=== PATIENT | male | born 1940 | race Caucasian/White ===

== ENCOUNTER → 2016-12-20 | Outpatient (CLI) | payer MEDICARE ==
--- NOTE | 2016-12-20 10:31 | US ---
EXAMINATION TYPE: US carotid duplex BILAT DATE OF EXAM: 12/20/2016 COMPARISON: NONE CLINICAL HISTORY: R42 dizziness. EXAM MEASUREMENTS: RIGHT: Peak Systolic Velocity (PSV) cm/sec ----- Right CCA: 68.2 ----- Right ICA: 71.0 ----- Right ECA: 80.6 ICA/CCA ratio: 1.0 RIGHT: End Diastole cm/sec ----- Right CCA: 28.9 ----- Right ICA: 25.6 ----- Right ECA: 14.2 LEFT: Peak Systolic Velocity (PSV) cm/sec ----- Left CCA: 77.3 ----- Left ICA: 79.3 ----- Left ECA: 91.8 ICA/CCA ratio: 1.0 LEFT: End Diastole cm/sec ----- Left CCA: 23.4 ----- Left ICA: 35.0 ----- Left ECA: 10.2 VERTEBRALS (direction of flow): Right Vertebral: Antegrade Left Vertebral: Antegrade Mild plaque, no significant velocity elevations. Grayscale, color Doppler, spectral Doppler imaging performed of the carotid arteries IMPRESSION: No hemodynamic significant stenosis of the proximal internal carotid arteries, and indir ect measurement of carotid stenosis
--- NOTE | 2016-12-20 12:04 | EST ---
DATE OF SERVICE: 12/20/2016 AGE: 76Y SEX: M HT: 67 WT: 190 lbs. Protocol Maxx: X Other: Stage: II Dur. of Exercise: 5 minutes *Heart Rate Blood Pressure *Rest: 78 Rest: 137/77 * *Max. Achieved: 131 Maximum BP: 208/97 85% PMHR: 123 100% PMHR: 145 *METS: 7.0 INDICATIONS: Dizziness. MEDICATIONS: Patient was exercised for a total period of 5 minutes. Peak heart rate of 131 was achieved. Maximum blood pressure of 208/97 mmHg was noted. Resting EKG shows normal sinus rhythm with normal OH interval and QRS duration and normal ST-T waves. The resting EKG shows normal sinus rhythm with a QRS morphology suggestive of right bundle branch block pattern was noted. No ST segment depression suggestive of ischemia was noted. The test was terminated because patient got short of breath. FINAL IMPRESSION: 1. This exercise test is not suggestive of ischemia. 2. Patient's exercise tolerance is below average. 3. The test was terminated because of the symptoms of shortness of breath.
== END | disposition home or self-care (01) ==
LOC: RADUSMAIN 09:01
PROVIDERS: ATTEND Family Medicine
DX: R42 Dizziness and giddiness (principal)
CPT/HCPCS: 93017; 93880

== ENCOUNTER → 2018-03-11 | Outpatient (CLI) | payer MEDICARE ==
--- NOTE | 2018-03-11 08:19 | CTL ---
EXAMINATION TYPE: CT Low Dose Lung DATE OF EXAM ORDERED: 03/11/2018 HISTORY: Tobacco use, cough. Lung cancer screening CT DLP: 79.[address] CTDI: 2.2 mGy Automated exposure control for dose reduction was used. SCREENING VISIT: 03/11/2018 COMPARISON: None TECHNIQUE: Low dose computed tomography scan was performed through the chest at 1 mm thick sections a nd reconstructed images in the coronal plane at [address] DIAGNOSTIC QUALITY: Satisfactory FINDINGS: LUNG NODULES: There is a large mass involving the left upper lobe with spiculated margins measuring a pproximately 4.8 x 3.4 x 3.2 cm highly suggestive of malignancy. There is adjacent subsegmental conso lidation. Single subpleural nodule anteriorly within the right upper lobe has measures 5 mm. Subsegmental consolidation is seen. No pleural calcification or thickening. No pneumothorax or pleural effusion. Assessment for adenopathy is limited by noncontrast technique. Shotty adenopathy in the mediastinum a nd hilum and axilla. There is coronary artery calcification and atherosclerotic change of the aorta. Heart size is mildly enlarged. Significant scoliotic curvature of the spine. There is a calcification within the left lobe of the li ayaan. There is a rib deformity on the left which appears related to remote trauma. No overtly destructive c hanges are seen. IMPRESSION: 1. Large left upper lobe mass measuring 4.8 cm highly suggestive of malignancy. FOLLOW UP CT CHEST RECOMMENDATION: Immediate CT scan with contrast recommended CT LUNG RAD: 4
== END | disposition home or self-care (01) ==
LOC: RADCTMAIN 07:00
PROVIDERS: ATTEND Family Medicine
DX: Z12.2 Encounter for screening for malignant neoplasm of respiratory organs (principal); R91.8 Other nonspecific abnormal finding of lung field; Z87.891 Personal history of nicotine dependence

== ENCOUNTER → 2018-03-12 | Outpatient (CLI) | payer MEDICARE ==
--- NOTE | 2018-03-12 13:03 | CT ---
"EXAMINATION TYPE: CT chest w con DATE OF EXAM: 03/12/2018 COMPARISON: CT low dose lung March 11, 2018 HISTORY: Abnormal CT results, lung mass CT DLP: 499 mGycm Automated exposure control for dose reduction was used. CONTRAST: CT scan of the chest is performed with IV Contrast, patient injected with 100 mL of Isovue 300. FINDINGS: LUNGS: The left upper lobe lung mass described on previous report is noted, it measures approximately 6.5 x 4.5 x 6 cm in size with pleural extension and local pleural thickening anteriorly, spiculated margins, extension towards the mediastinal fat anteriorly, and towards the left hilum. Emphysematous changes are present within the lungs. No pleural effusion. MEDIASTINUM: There are no greater than 1 cm hilar or mediastinal lymph nodes. Prevascular nodes are p resent. Left hilar adenopathy is present. No pericardial effusion is seen. There are coronary arter y calcifications present. Small hiatal hernia present. AORTA: Atheromatous changes are present. OTHER: Liver shows low attenuation possibly due to hepatic steatosis. There is a scoliosis present. Extensive diverticular changes associated with the colon. Gallbladder is contracted. IMPRESSION: Left upper lobe lung mass with hilar adenopathy as described consistent with bronchogeni c carcinoma. Coronary artery disease. Emphysema. Additional findings above. A Yellow level critical message alert has been initiated for Nataly You MD via the [employer] | Critical Results System on 03/12/2018 1:00 PM. This message alert has been sent to Nataly dhaliwal MD via the preferences provided by the clinician for the receipt of Radiology Critical Findings. Grant essage ID [id number]."
== END | disposition home or self-care (01) ==
LOC: RADCTMAIN 11:12
PROVIDERS: ATTEND Family Medicine
DX: R91.8 Other nonspecific abnormal finding of lung field (principal); I25.10 Atherosclerotic heart disease of native coronary artery without angina pectoris; J43.9 Emphysema, unspecified
CPT/HCPCS: 82565; 84520; 71260; 36415; Q9967

== ENCOUNTER → 2018-03-23 | Outpatient (CLI) | payer MEDICARE ==
--- NOTE | 2018-03-25 06:23 | PE ---
EXAMINATION TYPE: PET CT fusion skull to thigh DATE OF EXAM: 03/23/2018 COMPARISON: Chest CT March 12, 2018. Low-dose lung screening CT March 11, 2018. HISTORY: Solitary pulmonary nodule, abnormal CT. TECHNIQUE: Following the intravenous administration of 10.001 mCi of F-18 FDG, whole body images are performed from the skull base to the midthigh. Images are reviewed on the computer in the coronal, axial, and sagittal planes. Reconstructed rotating images are created on independent workstation and reviewed on the computer. A noncontrast CT is performed in conjunction with the PET scan. SCAN: Initial Scan FINDINGS: SKULL BASE AND NECK: No suspicious hypermetabolic uptake is present. CHEST, MEDIASTINUM, AND HILAR REGION: Mild underlying emphysematous change Is redemonstrated. Correla ting with recent CT there is spiculated mass in the anterior left upper to midlung measuring 4.9 x 3. 5 cm axial image 92 with abnormal hypermetabolic uptake, max SUV is 17.62. There is some ametabolic u ptake involving anterior and inferior portion of mass particularly component extending anteriorly to pleura is noted. Remainder of the thorax shows no suspicious hypermetabolic uptake. ABDOMEN AND PELVIS: No suspicious hypermetabolic uptake is present. OSSEOUS STRUCTURES: No suspicious hypermetabolic uptake is seen. OTHER CT: There is marked dextroconvex scoliosis centered in the lower thoracic spine. There is multi level facet arthropathy most prominent in the lower lumbar spine. There is mild to moderate mucosal thickening involving inferior aspect of right maxillary sinus. Nasa l septum is deviated to right of midline. There is mild to moderate calcified plaque at the carotid bulb level bilaterally. Small degree of bilateral gynecomastia is present. Main pulmonary artery measures 3.3 cm in diameter, CT finding consistent with underlying pulmonary ar pyaton hypertension. There is severe three-vessel coronary artery calcification which is noted marker for coronary artery disease. Dependent density in gallbladder is felt to reflect gallbladder sludge. Central 4 mm calcification left kidney axial image 158 could reflect vascular calcification versus no nobstructing calculus. There are diverticula throughout the colon most prominent in the sigmoid colon. Central zone calcifications are seen in slightly enlarged prostate gland which is for BPH. Correlate clinically. There is moderate calcified plaque of aorta extending into branch vessels. IMPRESSION: Suspicious hypermetabolic uptake in the left upper lobe mass. Imaging guided biopsy for t issue confirmation can be performed. TNM STAGING T2b,N0,M0 AJCC STAGING IIa
== END ==
LOC: RADPETMAIN 15:49
PROVIDERS: ATTEND Thoracic Surgery (Cardiothoracic Vascular Surgery)
DX: R91.1 Solitary pulmonary nodule (principal)
CPT/HCPCS: 78815; A9552

== ENCOUNTER → 2018-03-25 | Outpatient (CLI) | payer MEDICARE ==
[~2018-03-25] MED LIST: REGADENOSON 0.4 MG/5 ML SYRINGE IV ONE
--- NOTE | 2018-03-25 10:11 | P.STRESS ---
- Stress Test Note Stress Test Results/Findings: Exam Performed: NM stress lexiscan cardiolite Exam Date: 03/25/18 Reason for Exam: PRE-OP Height: 5 ft 6 in Weight: 81.647 kg Protocol: LEXISCAN CARDIOLITE Stage: NA Duration of Exercise: NA Resting Heart Rate: 66 Resting Blood Pressure: 103/71 Maximum Achieved Heart Rate: 94 Maximum Achieved Blood Pressure: 127/71 85% PMHR: 122 100% PMHR: 144 METS: NA Technologist Comment: Stress Test Results/Findings: This is a 77-year-old gentleman with history of hypertension and hypercholesterolemia and also smoking history, Being evaluated for cardiac status. Stress data: Baseline EKG showed sinus rhythm with evidence of a right bundle branch block. Blood pressure at rest is 103/71 with pulse rate of 66. A standard dose of Lexiscan was infused. EKGs taken during and after the infusion did not reveal any changes from the baseline. Final impression: #1. Negative Lexiscan stress test #2. Report on the nuclear images to be given by the radiologist.
--- NOTE | 2018-03-25 11:37 | NM ---
EXAMINATION TYPE: NM stress lexiscan cardiolite DATE OF EXAM: 03/25/2018 COMPARISON: Previous exam 05/19/2010 HISTORY: Solitary pulmonary nodule, lung mass, abnormal PET/CT TECHNIQUE: After the intravenous administration of 10.09 mCi Tc 99m Sestamibi - Cardiolite resting S PECT images acquired 45 minutes post injection. The patient received 0.4mg Lexiscan, 26.5 mCi Tc 99m Sestamibi - Stress images obtained [address] injection FINDINGS: Review of stress and rest SPECT images show some decreased radio pharmaceutical uptake along the infe rior wall left ventricle on stress as compared to rest images. Gated analysis shows some questionabl e paradoxical motion at the septum with an estimated left ventricular ejection fraction of 67 %. IMPRESSION: Findings suggest pharmacologically induced left ventricular myocardial ischemia along the inferior wa ll left ventricle, consider echocardiography for correlation of ejection fraction, wall motion. Resul elvia relayed to Robert Fuentes telephonically at the time of interpretation.
== END | disposition home or self-care (01) ==
LOC: RADNMMAIN 08:01
PROVIDERS: ATTEND Thoracic Surgery (Cardiothoracic Vascular Surgery)
DX: Z01.818 Encounter for other preprocedural examination (principal); R91.1 Solitary pulmonary nodule
CPT/HCPCS: 93017; 78452; A9500; J2785

== ENCOUNTER → 2018-04-01 | Outpatient (CLI) | payer MEDICARE ==
[2018-04-01 17:25] LABS: HCT 39.3 % (39.0-53.0); HGB 12.8 gm/dL (13.0-17.5); MCH 28.9 pg (25.0-35.0); MCHC 32.5 g/dL (31.0-37.0); Mean Platelet Volume 6.4; Platelet Count 518 k/uL (150-450); RBC 4.41 m/uL (4.30-5.90); RDW 12.6 % (11.5-15.5); WBC 12.7 k/uL (3.8-10.6)
[2018-04-01 17:32] LABS: Potassium 4.2 mmol/L (3.5-5.1)
== END | disposition home or self-care (01) ==
LOC: LABPAT 16:51
PROVIDERS: ATTEND Internal Medicine Interventional Cardiology
DX: Z01.812 Encounter for preprocedural laboratory examination (principal); I10 Essential (primary) hypertension; E78.2 Mixed hyperlipidemia; R94.39 Abnormal result of other cardiovascular function study
CPT/HCPCS: 80051; 82565; 84520; 85027

== ENCOUNTER → 2018-04-08 | Outpatient (CLI) | payer MEDICARE | END | disposition home or self-care (01) | LOC: LABPAT 16:00 | PROVIDERS: ATTEND Anesthesiology | DX: Z01.812 Encounter for preprocedural laboratory examination (principal) | CPT/HCPCS: 86850; 86900; 86901 ==

== ENCOUNTER 2018-04-11 05:39 | Inpatient (IN) | payer MEDICARE ==
[2018-04-02 09:27] VITALS: BMI 29.8
[~2018-04-11 05:39] MED LIST changes: -REGADENOSON 0.4 MG/5 ML SYRINGE IV ONE; +ceFAZolin IN SWFI 2 GM/20 ML SYRINGE IVP ONE
[2018-04-11] MEDS ORDERED: DEXAMETHASONE SOD PHOSPHATE 10 MG/ML 1 ML VIAL IV ONE (06:14)
[2018-04-11] MEDS ORDERED: MIDAZOLAM 2 MG/2 ML VIAL IV PRN (06:14)
[2018-04-11] MEDS ORDERED: ONDANSETRON 4 MG/2 ML VIAL IVP ONE (06:14)
[2018-04-11] MEDS ORDERED: LIDOCAINE 1% 20 ML VIAL (10MG/ML) FOR IV START INTRADERMA ONE (06:54)
[2018-04-11] MEDS: LACTATED RINGERS 1,000 ML IV SCH ×2 (06:55→07:20)
[2018-04-11] MEDS ORDERED: MIDAZOLAM 2 MG/2 ML VIAL ONE (07:30)
[2018-04-11] MEDS ORDERED: PROPOFOL 10 MG/ML 20 ML VIAL IV ONE (07:30)
[2018-04-11] MEDS ORDERED: NEOSTIGMINE 1 MG/ML 10 ML VIAL ONE (07:30)
[2018-04-11] MEDS ORDERED: LIDOCAINE 1% INJ 10MG/ML (20 ML MDV) ONE (07:30)
[2018-04-11] MEDS ORDERED: LABETALOL 5 MG/ML VIAL MDV ONE (07:30)
[2018-04-11] MEDS ORDERED: GLYCOPYRROLATE 0.2 MG/ML 2 ML VIAL ONE (07:30)
[2018-04-11] MEDS ORDERED: PHENYLEPHRINE-0.9% NACL SYG 1 MG/10 ML SYRINGE ONE (07:30)
[2018-04-11] MEDS ORDERED: fentaNYL (PF) 50 MCG/ML 2 ML AMP ONE (07:30)
[2018-04-11] MEDS ORDERED: ROCURONIUM BROMIDE 10 MG/ML 10 ML VIAL IV ONE (07:30)
[2018-04-11] MEDS ORDERED: SUCCINYLCHOLINE CHLORIDE 100 MG/5 ML SYR IV ONE (07:30)
[2018-04-11] MEDS ORDERED: HYDROmorphone (PF) 1 MG/ML ONE (07:30)
[2018-04-11] MEDS ORDERED: ROPIVACAINE 5 MG/ML 30 ML VIAL MISCELLANE ONE (08:17)
[2018-04-11] MEDS ORDERED: ONDANSETRON 4 MG/2 ML VIAL IVP PRN (10:57)
[2018-04-11] MEDS ORDERED: DEXTROSE 5%-0.45% NACL 1,000 ML IV SCH (11:00)
--- NOTE | 2018-04-11 11:07 | P.OP ---
Date of Procedure: 04/11/18 Preoperative Diagnosis: Left upper lobe mass consistent with carcinoma Postoperative Diagnosis: Same Procedure(s) Performed: Robotic-assisted thoracoscopic right upper lobectomy with mediastinal lymph node dissection Anesthesia: DAVIDA Surgeon: Inocencio Handy Testing Manager #1: Ash Gomez Estimated Blood Loss (ml): 20 IV fluids (ml): 1,500 Urine output (ml): 250 Pathology: other (Left upper lobe for frozen section of bronchial margin and permanent section, lymph nodes from stations L5, L6, level VII, L 10 and L 11.) Condition: stable Disposition: PACU Indications for Procedure: 77-year-old male presents with a 6 cm mass in the left upper lobe of the lung. He has a distant smoking history. He had mild mediastinal adenopathy on computed tomography scan. PET scan showed marketed uptake in the tumor and no evidence of metastatic disease. Patient was boarded for elective lobectomy. 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 Operative Findings: Fissures were partially complete. There were mild adhesions of the lung to the pleura. These were taken down without difficulty. There was extensive anthracotic lymphadenopathy both in the hilum and the mediastinum. None of this appeared malignant. There was a large tumor in the left upper lobe with overlying visceral pleural puckering but no attachment to the parietal pleura or chest wall. Frozen section of the bronchial margin was benign. Description of Procedure: The patient was brought to the operating room, placed supine on the operating table, anesthetized and intubated with a double-lumen endotracheal tube. Tube was positioned with fiberoptic bronchoscopy. No endobronchial lesions were noted. Tube was secured and the patient turned in the right lateral decubitus position and appropriately positioned for robotic lobectomy. The left chest was marked and then sterilely prepped and draped. Initial incision was made in the anterior axillary line in the seventh interspace and an 8 mm robotic port was placed here. Single lung ventilation had been initiated prior to placing the port. With the port in place the video thoracoscope was introduced and placement in the pleural space was confirmed. CO2 insufflation was begun and 212 mm ports were placed 10 cm anterior 10 cm posterior to this initial port. A second 8 mm port was placed posteriorly just anterior to the spine in the fourth interspace. A 15 mm working port was placed between the 2 most anterior ports at the level of the diaphragm. The robot was docked. Camera was placed in the initial port and the dissection was begun. Chest exploration was performed as noted above. Adhesions were taken down. We began the dissection in the fissure identifying the pulmonary artery at the base of the fissure and completing the fissure posteriorly with a single firing of the robotic 45 mm medium stapler. Some lymph nodes in the hilum at the base of the fissure were sent as L 11 lymph nodes. Dissection was carried along the pulmonary artery and the lingular branch and one other branch of the pulmonary artery leading to the left upper lobe were encircled ligated and individually divided with the robotic vascular stapler. We then redirected our attention inferiorly and took down the inferior pulmonary ligament continuing the dissection posteriorly behind the inferior pulmonary vein. A lymph node at the base of the inferior pulmonary vein was resected and sent as an L 10 lymph node. Dissection was carried out inferior to the trachea and superior to the inferior pulmonary vein and the level VII lymph nodes were resected from this region. Dissection was carried more superiorly and level lymph nodes were resected. The plane between the pulmonary artery and the left mainstem bronchus was partially dissected and lymph nodes in this region were resected and sent as L 10 lymph nodes. Good hemostasis was maintained throughout attention was now directed anteriorly. The superior pulmonary vein was identified and dissected out anteriorly. Between the 2 pulmonary veins was explored and some L 11 lymph nodes were resected from this region. This brought us back onto the bronchus. We were now able to encircle the superior pulmonary vein with careful blunt dissection and then ligate and divide the superior pulmonary vein with a single firing of a robotic vascular stapler. We were now able to further dissected the L 11 lymph nodes off the left upper lobe bronchus and encircle it. Adhesions between the bronchus and the pulmonary artery were carefully freed. Bronchus was then ligated and divided with a single firing of a robotic thick stapler. 2 proximal branches of the pulmonary artery maintained to the upper lobe and these were encircled and taken with a single firing of a robotic vascular stapler. There were large number of lymph nodes which were resected en bloc with the specimen. We completed freeing the specimen by completing the fissure between the lingula and the lower lobe with 2 firings of a robotic 45 mm medium stapler. We now completed the lymph node dissection by resecting the L5 lymph nodes. The lobectomy specimen was placed in a large Endo Catch bag and brought in through the working port. Robotic ports were now removed. The working port incision was enlarged and the specimen brought through the resulting enlarged incision in the Endo Catch bag. Was examined on the back table with the findings as noted above. Was sent for frozen section of the bronchial margin which returned negative. Good hemostasis was noted throughout. Pleural space was filled with some warm water and irrigated out. The lobectomy specimen was inflated under thoracoscopic visualization. There was no air leak from the bronchial stump and minimal air leak from the staple lines. Water was suctioned free and a 28-Mongolian chest tube was placed through the anteriormost incision and brought posterior apically. It was secured with an 0 Ethibond suture. The lung remained inflated and 2 lung ventilation continued. Rib blocks were performed from level IV to level X with bupivacaine. Incisions were closed with layers of Vicryl suture. Band-Aid dressings were applied, the chest tube was connected to a Pleur-evac and the patient was transported to recovery room following extubation.
[2018-04-11] MEDS: HYDROmorphone 0.5 MG/0.5 ML SYRINGE IVP PRN ×4 (11:15→12:00)
[2018-04-11] MEDS: KETOROLAC 30 MG/ML 1 ML VIAL IVP SCH ×4 (11:34→22:57)
[2018-04-11] MEDS ORDERED: diphenhydrAMINE 50 MG/ML 1 ML VIAL IVP ONE (11:35)
--- NOTE | 2018-04-11 11:41 | XR ---
EXAMINATION TYPE: XR chest 1V portable DATE OF EXAM: 04/11/2018 COMPARISON: Nuclear medicine PET/CT 03/23/2018 HISTORY: Status post left upper lobectomy TECHNIQUE: Single frontal view of the chest is obtained. FINDINGS: There is a left-sided chest tube in place, volume loss present in left hemithorax. Marked scoliosis is noted. No evident pneumothorax or sizable effusion. Patient is rotated. Strand-like dens ities in the right lung likely reflects scarring. IMPRESSION: Post lobectomy change.
[2018-04-11] MEDS: IPRATROPIUM-ALBUTEROL 3 ML NEB IH SCH ×3 (13:03→19:37)
[2018-04-11] MEDS: traMADol 50 MG TAB PO SCH ×3 (13:26→20:38)
[2018-04-11] MEDS: ceFAZolin IN SWFI 2 GM/20 ML SYRINGE IVP SCH ×2 (15:25→22:56)
[2018-04-11] MEDS: HEPARIN SODIUM,PORCINE 5,000 UNIT/ML 1 ML VIAL SQ SCH ×2 (15:25→22:56)
--- NOTE | 2018-04-11 17:46 | P.CNPUL ---
History of Present Illness Consult date: 04/11/18 Reason for consult: other (Status post left upper lobectomy, underlying COPD) Chief complaint: Status post left upper lobectomy was operative day #1 History of present illness: This is a 77-year-old white male presented recently to his primary care physician, he requested a routine chest x-ray mostly because he has known history of COPD, and has not had a chest x-ray and a long time. His chest x- ray in the office was abnormal, patient had a CT of the chest which confirmed left upper lobe mass consistent with carcinoma, PET scan was done, and it showed only one hypermetabolic focus correlating to the left upper lobe mass. Patient was referred to Dr. Handy, his preoperative PFT was adequate, and he underwent robotic-assisted thoracoscopic left upper lobectomy and mediastinal lymph node dissection. Postoperatively patient was sent to a monitor bed on selective, and I was asked to see him on consultation. Patient is doing well during my evaluation, denies any cough no wheezing no shortness of breath, and his pain seems to be fairly well controlled. Patient has strong family history of lung cancer, and strong family history of colon cancer. 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 Remote history of smoking, quit many years ago. Known history of scoliosis. Review of Systems 14 point review of systems were obtained, please refer to pertinent positives in HPI, otherwise remaining systems are negative Past Medical History Past Medical History: COPD, GERD/Reflux, Hyperlipidemia, Hypertension Additional Past Medical History / Comment(s): seasaonal allergies History of Any Multi-Drug Resistant Organisms: None Reported Past Surgical History: Back Surgery Past Anesthesia/Blood Transfusion Reactions: No Reported Reaction Past Psychological History: Depression Smoking Status: Former smoker Past Alcohol Use History: None Reported Additional Past Alcohol Use History / Comment(s): smoked 30 years off and on 1ppd quit 2009 Past Drug Use History: None Reported - Past Family History Sister(s) Family Medical History: Cancer Additional Family Medical History / Comment(s): lung and colon cancer Medications and Allergies Home Medications Medication Instructions Recorded Confirmed Type Aclidinium Orgas [Tudorza 400 mcg PO BID 04/02/18 04/11/18 History Pressair] Aspirin 325 mg PO DAILY 04/02/18 04/11/18 History Atorvastatin [Lipitor] 40 mg PO DAILY 04/02/18 04/11/18 History Famotidine [Pepcid] 40 mg PO DAILY 04/02/18 04/11/18 History Glucosamine Sulfate 500 mg PO DAILY 04/02/18 04/11/18 History L.acidoph,Paracasei, B.lactis 1 cap PO DAILY 04/02/18 04/11/18 History [Probiotic] Losartan/Hydrochlorothiazide 1 tab PO DAILY 04/02/18 04/11/18 History [Losartan-Hctz 100-12.5 mg Tab] Montelukast Sodium [Singulair] 10 mg PO DAILY 04/02/18 04/11/18 History Allergies Allergy/AdvReac Type Severity Reaction Status Date / Time No Known Allergies Allergy Verified 04/11/18 11:29 Physical Exam Vitals: Vital Signs Temp Pulse Pulse Resp BP BP Pulse Ox 04/11/18 16:00 97.8 F 91 16 114/74 95 04/11/18 15:43 93 04/11/18 15:31 91 04/11/18 13:07 80 04/11/18 12:15 79 16 112/55 94 L 04/11/18 12:00 70 16 128/62 121/59 94 L 04/11/18 11:35 73 16 132/77 128/65 95 04/11/18 11:20 72 16 138/77 132/83 98 04/11/18 11:04 96.8 F L 84 18 148/82 144/76 99 04/11/18 06:33 98.0 F 72 18 120/65 96 Intake and Output 04/11/18 04/11/18 04/11/18 06:59 14:59 22:59 Intake Total 100 1095 Output Total 335 Balance 100 760 Intake: IV 100 1075 Intake, IV Titration 20 Amount Lactated Ringers 1,000 ml 20 @ 20 mls/hr IV .Q24H [facility] Rx#:[id number] Output: Urine 325 Estimated Blood Loss 10 Other: Voiding Method Indwelling Catheter Weight 83.9 kg Physical Exam: Revealed a 77-year-old white male, pleasant, in no distress. Head: Atraumatic, normocephalic. HEENT:[Neck is supple.] [No neck masses.] [No thyromegaly.] [No JVD.] PERRLA, EOMI, no icterus, no cervical adenopathy. Chest: [Diminished breath sound bilaterally, left sided chest tube is noted. No crackles, no rhonchi, no wheezes.] Cardiac Exam: [Normal S1 and S2, no S3 gallop, no murmur.] Abdomen: [Soft, nontender, no megaly, no rebound, no guarding, normal bowel sounds.] Extremities: [No clubbing, no edema, no cyanosis.] Neurological Exam: [No focal neurologic deficit.] Psychiatric: Normal mood, affect, and mental status examination. Lymphatics: No lymphadenopathy. Results - Diagnostic Findings Chest x-ray: image reviewed (Chest x-ray showed mostly postoperative changes involving the left lung, no significant abnormalities noted.) Assessment and Plan Assessment: Impression: 1 status post left upper lobectomy for left upper lobe mass highly suspicious for bronchogenic carcinoma, with positive PET scan. 2 mild COPD/asthmatic bronchitis as noted on his PFT from our office, patient will benefit from DuoNeb updrafts 4 times a day and when necessary. 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 And family history of colon cancer. Recommendation: Agree with present treatment plan, continue bronchodilators in the form of DuoNeb updrafts 4 times a day and when necessary, incentive spirometry, resume his home meds, await the final pathology report from his lobectomy and mediastinal node dissection. We'll continue to follow. Time with Patient: Greater than 30
[2018-04-11] MEDS: MORPHINE SULFATE 2 MG/ML SYRINGE IVP PRN (20:57)
[2018-04-11] MEDS ORDERED: ACLIDINIUM BROMIDE 400 MCG PO SCH (21:00)
[2018-04-12] MEDS: MORPHINE SULFATE 2 MG/ML SYRINGE IVP PRN (04:33)
[2018-04-12] MEDS: KETOROLAC 30 MG/ML 1 ML VIAL IVP SCH ×3 (06:43→20:37)
[2018-04-12 06:54] LABS: Basophils % (A) 0 %; Eosinophils # (A) 0.2 k/uL (0-0.7); Eosinophils % (A) 2 %; HCT 38.4 % (39.0-53.0); HGB 12.7 gm/dL (13.0-17.5); Lymphocytes # (A) 1.1 k/uL (1.0-4.8); Lymphocytes % (A) 8 %; MCH 28.9 pg (25.0-35.0); MCV 87.8 fL (80.0-100.0); Mean Platelet Volume 6.7; Monocytes # (A) 0.7 k/uL (0-1.0); Monocytes % (A) 5 %; Neutrophils # (A) 11.8 k/uL (1.3-7.7); Neutrophils % (A) 85 %; Platelet Count 406 k/uL (150-450); RBC 4.38 m/uL (4.30-5.90); RDW 12.5 % (11.5-15.5); WBC 13.9 k/uL (3.8-10.6)
[2018-04-12 07:07] LABS: Calcium 8.7 mg/dL (8.4-10.2); Potassium 4.2 mmol/L (3.5-5.1)
--- NOTE | 2018-04-12 08:52 | XR ---
EXAMINATION TYPE: XR chest 1V DATE OF EXAM: 04/12/2018 COMPARISON: 04/11/2018 HISTORY: Postsurgical TECHNIQUE: Single frontal view of the chest is obtained. FINDINGS: Findings suggest a 5% to 10% left-sided pneumothorax. Chest tube seen in position. Bilater al consolidation and small effusion. Heart size stable. Marked scoliotic curvature noted. Reduced ins piration limits exam. IMPRESSION: 1. There appears to be a left-sided pneumothorax measuring approximately 5-10% 2. Bilateral consolidation and small effusion stable.
[2018-04-12] MEDS ORDERED: NON-FORMULARY DRUG (Glucosamine Sulfate 500 MG) PO SCH (09:00)
[2018-04-12] MEDS: IPRATROPIUM-ALBUTEROL 3 ML NEB IH SCH ×4 (09:20→20:46)
[2018-04-12] MEDS: FAMOTIDINE 20 MG TAB PO SCH (10:35)
[2018-04-12] MEDS: ASPIRIN 325 MG TAB PO SCH (10:35)
[2018-04-12] MEDS: HEPARIN SODIUM,PORCINE 5,000 UNIT/ML 1 ML VIAL SQ SCH ×3 (10:35→23:21)
[2018-04-12] MEDS: ATORVASTATIN 40 MG TAB PO SCH (10:35)
[2018-04-12] MEDS: HYDROCHLOROTHIAZIDE 12.5 MG CAP PO SCH (10:36)
[2018-04-12] MEDS: LACTOBACILLUS ACIDOPH & BULGAR 1 EACH PACKET PO SCH (10:36)
[2018-04-12] MEDS: LOSARTAN 50 MG TAB PO SCH (10:36)
[2018-04-12] MEDS: MONTELUKAST 10 MG TAB PO SCH (10:37)
[2018-04-12] MEDS: ACETAMINOPHEN IV (For NPO) 1,000 MG in EMPTY BAG 1 BAG IVPB SCH ×3 (10:40→21:58)
[2018-04-12] MEDS: traMADol 50 MG TAB PO SCH ×4 (10:41→23:21)
[2018-04-12] MEDS: METOCLOPRAMIDE 5 MG/ML 2 ML VIAL IVP SCH ×3 (12:06→23:21)
--- NOTE | 2018-04-12 13:44 | P.PN ---
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 POD #1 robotic-assisted thoracoscopic left upper lobectomy with mediastinal lymph node dissection. The patient is currently sitting up to his bedside edge. He is in no acute distress. He is currently complaining of pain to his left chest tube insertion site 5 out of 10 on the pain scale. He denies any complaints of shortness of breath. Oxygen saturations are 93% on 3 L nasal cannula. He is achieving 500 mL on his incentive spirometry. He is anxious to be discharged home. Objective - Vital Signs Vital signs: Vital Signs Temp 97.0 F L 04/12/18 04:00 Pulse 90 04/12/18 04:00 Resp 18 04/12/18 04:00 BP 142/77 04/12/18 04:00 Pulse Ox 90 L 04/12/18 04:00 Intake & Output 04/11/18 04/12/18 04/12/18 18:59 06:59 18:59 Intake Total 1335 240 Output Total 335 530 Balance 1000 -290 Weight 83.9 kg 88.5 kg Intake: IV 1075 240 0.9 240 Intake, IV Titration 20 Amount Lactated Ringers 1,000 ml 20 @ 20 mls/hr IV .Q24H [facility] Rx#:[id number] Oral 240 Output: Drainage 230 Left Chest 230 Urine 325 300 Estimated Blood Loss 10 Other: Voiding Method Indwelling Catheter Indwelling Catheter - Constitutional General appearance: Present: cooperative, no acute distress, obese - Respiratory Details: Lungs sounds essentially diminished throughout, left greater than right. Respirations are symmetrical and nonlabored. Oxygen saturation are 93% on 3 L nasal cannula. He is achieving 500 mL on his incentive spirometry with encouragement. Left pleural chest tube in place to low continuous wall suction. Draining thin serosanguineous drainage, 120 mL output in the last 8 hours, 270 mL output since surgery. No air leak is present. - Cardiovascular Details: Regular rhythm and rate. S1 and S2 present, negative for S3, gallop or murmur. No edema present. Remote telemetry showing normal sinus rhythm heart rate 90. Knee-high OTTO hose and sequential compression devices in place to his bilateral lower extremities. - Gastrointestinal Gastrointestinal Comment(s): Abdomen is soft, distended and nontender. Active bowel sounds all 4 abdominal quadrants. Tolerating oral intake. - Genitourinary Genitourinary Comment(s): Rai catheter for accurate I&O. Draining clear yellow urine. 500 mL output in the last 8 hours. - Integumentary Integumentary Comment(s): Skin is warm and dry. No clubbing and cyanosis present. Left chest incisions clean dry and intact. Dressings clean dry and intact. - Neurologic Neurologic: Present: CNII-XII intact - Musculoskeletal Musculoskeletal: Present: gait normal, generalized weakness, strength equal bilaterally - Psychiatric Psychiatric: Present: A&O x's 3, appropriate affect, intact judgment & insight - Allied health notes Allied health notes reviewed: nursing - Labs CBC & Chem 7: 04/12/18 06:25 04/12/18 06:25 Labs: Abnormal Lab Results - Last 24 Hours (Table) 04/12/18 04/12/18 Range/Units 06:25 06:25 WBC 13.9 H (3.8-10.6) k/uL Hgb 12.7 L (13.0-17.5) gm/dL Hct 38.4 L (39.0-53.0) % Neutrophils # 11.8 H (1.3-7.7) k/uL Sodium 130 L (137-145) mmol/L Chloride 97 L (98-107) mmol/L BUN 21 H (9-20) mg/dL Glucose 127 H (74-99) mg/dL - Imaging and Cardiology Chest x-ray: report reviewed, image reviewed Assessment and Plan (1) Mass of upper lobe of left lung Current Visit: Yes Status: Acute Code(s): R91.8 - OTHER NONSPECIFIC ABNORMAL FINDING OF LUNG FIELD SNOMED Code(s): 296046354 (2) COPD (chronic obstructive pulmonary disease) Current Visit: Yes Status: Acute Code(s): J44.9 - CHRONIC OBSTRUCTIVE PULMONARY DISEASE, UNSPECIFIED SNOMED Code(s): 96994223 (3) GERD (gastroesophageal reflux disease) Current Visit: Yes Status: Acute Code(s): K21.9 - GASTRO-ESOPHAGEAL REFLUX DISEASE WITHOUT ESOPHAGITIS SNOMED Code(s): 338441461 (4) Hypertension Current Visit: Yes Status: Acute Code(s): I10 - ESSENTIAL (PRIMARY) HYPERTENSION SNOMED Code(s): 96953987 (5) Hyperlipidemia Current Visit: Yes Status: Acute Code(s): E78.5 - HYPERLIPIDEMIA, UNSPECIFIED SNOMED Code(s): 08147372 (6) History of depression Current Visit: Yes Status: Acute Code(s): Z86.59 - PERSONAL HISTORY OF OTHER MENTAL AND BEHAVIORAL DISORDERS SNOMED Code(s): 408237606 (7) Tobacco dependence in remission Current Visit: Yes Status: Acute Code(s): F17.201 - NICOTINE DEPENDENCE, UNSPECIFIED, IN REMISSION SNOMED Code(s): 411413203 (8) Scoliosis Current Visit: Yes Status: Acute Code(s): M41.9 - SCOLIOSIS, UNSPECIFIED SNOMED Code(s): 794349508 Plan: 1. Continue aspirin, statin, Cozaar and subcu heparin. 2. Encourage use of his incentive spirometry every hour while awake. Wean oxygen as tolerated to keep oxygen saturations greater than 92%. 3. Place left pleural chest tube to waterseal. 4. Monitor daily labs and chest x-rays. 5. Discontinue Rai catheter. 6. Increase activity as tolerated, out of bed for all meals. Physical therapy following. 7. Pain control per current regimen. We will add IV acetaminophen. 8. Saline lock IV fluids. 9. Continue GI prophylaxis, Pepcid and DVT prophylaxis subcu heparin and SCDs. 10. Bronchodilators and pulmonary management per pulmonology recommendations. 11. Pathology results pending. 12. Discontinue Rai catheter. 13. More recommendations to follow based on patient's clinical course. Time with Patient: Greater than 30
--- NOTE | 2018-04-12 14:25 | P.PN ---
Subjective Progress Note Date: 04/12/18 Principal diagnosis: Status post left upper lobectomy, postoperative day #1. This is a 77-year-old white male presented recently to his primary care physician, he requested a routine chest x-ray mostly because he has known history of COPD, and has not had a chest x-ray and a long time. His chest x- ray in the office was abnormal, patient had a CT of the chest which confirmed left upper lobe mass consistent with carcinoma, PET scan was done, and it showed only one hypermetabolic focus correlating to the left upper lobe mass. Patient was referred to Dr. Handy, his preoperative PFT was adequate, and he underwent robotic-assisted thoracoscopic left upper lobectomy and mediastinal lymph node dissection. Postoperatively patient was sent to a monitor bed on selective, and I was asked to see him on consultation. Patient is doing well during my evaluation, denies any cough no wheezing no shortness of breath, and his pain seems to be fairly well controlled. Patient has strong family history of lung cancer, and strong family history of colon cancer. 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 Remote history of smoking, quit many years ago. Known history of scoliosis. The patient is seen again today 04/12/2018 in follow-up. Postoperative day #1. He remains awake and alert in no acute distress. Maintaining good O2 sat to saturations in the 90s on 3 L/m per nasal cannula. Asked x-ray reveals a left- sided pneumothorax measuring 5-10%. There is bilateral consolidation and small effusion which are stable. Chest tube remains in place. Placed to waterseal this morning. Working well with the incentive spirometer. Remains on DuoNeb inhalations. Heparin for DVT prophylaxis. Objective - Vital Signs Vital signs: Vital Signs Temp 97.0 F L 04/12/18 04:00 Pulse 92 04/12/18 13:30 Resp 18 04/12/18 04:00 BP 142/77 04/12/18 04:00 Pulse Ox 90 L 04/12/18 04:00 Intake & Output 04/11/18 04/12/18 04/12/18 18:59 06:59 18:59 Intake Total 1335 240 Output Total 335 530 Balance 1000 -290 Weight 83.9 kg 88.5 kg Intake: IV 1075 240 0.9 240 Intake, IV Titration 20 Amount Lactated Ringers 1,000 ml 20 @ 20 mls/hr IV .Q24H [facility] Rx#:[id number] Oral 240 Output: Drainage 230 Left Chest 230 Urine 325 300 Estimated Blood Loss 10 Other: Voiding Method Indwelling Catheter Indwelling Catheter - Exam Physical Exam: Revealed a 77-year-old white male, pleasant, in no distress. Head: Atraumatic, normocephalic. HEENT:[Neck is supple.] [No neck masses.] [No thyromegaly.] [No JVD.] PERRLA, EOMI, no icterus, no cervical adenopathy. Chest: [Diminished breath sound bilaterally, left sided chest tube is noted. No crackles, no rhonchi, no wheezes.] Cardiac Exam: [Normal S1 and S2, no S3 gallop, no murmur.] Abdomen: [Soft, nontender, no megaly, no rebound, no guarding, normal bowel sounds.] Extremities: [No clubbing, no edema, no cyanosis.] Neurological Exam: [No focal neurologic deficit.] Psychiatric: Normal mood, affect, and mental status examination. Lymphatics: No lymphadenopathy. - Labs CBC & Chem 7: 04/12/18 06:25 04/12/18 06:25 Labs: Abnormal Lab Results - Last 24 Hours (Table) 04/12/18 04/12/18 Range/Units 06:25 06:25 WBC 13.9 H (3.8-10.6) k/uL Hgb 12.7 L (13.0-17.5) gm/dL Hct 38.4 L (39.0-53.0) % Neutrophils # 11.8 H (1.3-7.7) k/uL Sodium 130 L (137-145) mmol/L Chloride 97 L (98-107) mmol/L BUN 21 H (9-20) mg/dL Glucose 127 H (74-99) mg/dL Assessment and Plan Assessment: Impression: 1 status post left upper lobectomy for left upper lobe mass highly suspicious for bronchogenic carcinoma, with positive PET scan. 2 mild COPD/asthmatic bronchitis as noted on his PFT from our office, patient will benefit from DuoNeb updrafts 4 times a day and when necessary. 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 And family history of colon cancer. Plan: The patient was seen and evaluated by Dr. Schwartz. Chest x-ray was reviewed. Chest tube to waterseal per CT services. We will increase his activity as tolerated. Encourage the increased use of the incentive spirometer and cough and deep breathing exercises. Continue bronchodilators. Pathology is pending. We will continue to follow. I, the cosigning physician, performed a history & physical examination of the patient. Lungs sounds with crackles in posterior bases. Maintaining good O2 saturations in the 90s on 3 L/m per nasal cannula. I discussed the assessment and plan of care with my nurse practitioner, Dasia Moya. I attest to the above note as dictated by her.
[2018-04-13] MEDS: KETOROLAC 30 MG/ML 1 ML VIAL IVP SCH ×5 (01:02→23:20)
[2018-04-13] MEDS: ACETAMINOPHEN IV (For NPO) 1,000 MG in EMPTY BAG 1 BAG IVPB SCH (03:51)
[2018-04-13] MEDS: METOCLOPRAMIDE 5 MG/ML 2 ML VIAL IVP SCH ×3 (06:11→23:20)
--- NOTE | 2018-04-13 06:35 | XR ---
EXAMINATION TYPE: XR chest 2V DATE OF EXAM: 04/13/2018 HISTORY: Postoperative left upper lobectomy. REFERENCE: Previous study dated 04/12/2018. FINDINGS: The left pleural drain has been inserted. No residual pneumothorax is seen at this time. The heart is enlarged. There is some left basilar atelectasis. I suspect a tiny left effusion. IMPRESSION: 1. RESOLUTION OF THE PATIENT'S LEFT-SIDED PNEUMOTHORAX. 2. CARDIOMEGALY. 3. LEFT BASILAR ATELECTASIS. 4. I COULD NOT EXCLUDE A SMALL, LEFT EFFUSION.
[2018-04-13 06:38] LABS: Basophils % (A) 0 %; Eosinophils # (A) 0.5 k/uL (0-0.7); Eosinophils % (A) 3 %; HCT 35.5 % (39.0-53.0); HGB 12.2 gm/dL (13.0-17.5); Lymphocytes # (A) 0.8 k/uL (1.0-4.8); Lymphocytes % (A) 6 %; MCH 28.9 pg (25.0-35.0); MCHC 34.3 g/dL (31.0-37.0); MCV 84.3 fL (80.0-100.0); Mean Platelet Volume 7.8; Monocytes # (A) 0.8 k/uL (0-1.0); Monocytes % (A) 5 %; Neutrophils # (A) 12.7 k/uL (1.3-7.7); Neutrophils % (A) 85 %; Platelet Count 416 k/uL (150-450); RBC 4.21 m/uL (4.30-5.90); RDW 12.2 % (11.5-15.5); WBC 14.8 k/uL (3.8-10.6)
[2018-04-13 06:46] LABS: Calcium 8.7 mg/dL (8.4-10.2); Potassium 3.9 mmol/L (3.5-5.1)
[2018-04-13] MEDS: IPRATROPIUM-ALBUTEROL 3 ML NEB IH SCH ×4 (07:50→19:23)
[2018-04-13] MEDS ORDERED: BISACODYL 10 MG SUPP RECTAL STA (08:31)
[2018-04-13] MEDS: HYDROCHLOROTHIAZIDE 12.5 MG CAP PO SCH (08:37)
[2018-04-13] MEDS: MONTELUKAST 10 MG TAB PO SCH (08:38)
[2018-04-13] MEDS: LACTOBACILLUS ACIDOPH & BULGAR 1 EACH PACKET PO SCH (08:38)
[2018-04-13] MEDS: ATORVASTATIN 40 MG TAB PO SCH (08:38)
[2018-04-13] MEDS: HEPARIN SODIUM,PORCINE 5,000 UNIT/ML 1 ML VIAL SQ SCH ×3 (08:38→23:20)
[2018-04-13] MEDS: ASPIRIN 325 MG TAB PO SCH (08:38)
[2018-04-13] MEDS: LOSARTAN 50 MG TAB PO SCH (08:38)
[2018-04-13] MEDS: FAMOTIDINE 20 MG TAB PO SCH (08:38)
[2018-04-13] MEDS: traMADol 50 MG TAB PO SCH ×4 (08:43→21:27)
--- NOTE | 2018-04-13 09:37 | P.PN ---
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 POD #2 robotic-assisted thoracoscopic left upper lobectomy with mediastinal lymph node dissection. The patient is currently sitting up to his bedside edge. He is in no acute distress. He is currently complaining of pain to his left chest tube insertion site 3 out of 10 on the pain scale. He denies any complaints of shortness of breath. Oxygen saturations are 94% on 3 L nasal cannula. He is achieving 500 mL on his incentive spirometry. He is anxious to be discharged home. Left pleural chest tube remains in place to waterseal, no air leak is present. He reports that he ambulated in the [address] [place], [place] [address]way yesterday with minimal assist. Complaining of urine frequency throughout the night. Objective - Vital Signs Vital signs: Vital Signs Temp 98.0 F 04/13/18 07:50 Pulse 82 04/13/18 08:00 Resp 18 04/13/18 07:50 BP 142/98 04/13/18 07:50 Pulse Ox 93 L 04/13/18 07:50 Intake & Output 04/12/18 04/13/18 04/13/18 18:59 06:59 18:59 Intake Total 240 20 240 Output Total 2175 Balance 240 -2155 240 Weight 87.3 kg Intake: IV 20 0.9 20 Oral 240 240 Output: Chest Tube Drainage 150 Left Upper Lateral Chest 150 Drainage 100 Left Chest 100 Urine 1925 Other: Voiding Method Urinal Urinal # Voids 1 - Constitutional General appearance: Present: cooperative, no acute distress, obese - Respiratory Details: Lung sounds essentially clear throughout, diminished to his bilateral bases left greater than his right. Respirations are symmetrical and nonlabored. Oxygen saturation are 94% on 3 L nasal cannula. He is achieving 500 mL on his incentive spirometry with much encouragement. Left pleural chest tube remains in place to water seal. No air leak is present. Draining thin serosanguineous drainage, 100 mL output in the last 8 hours, 300 mL output in the last 24 hours. - Cardiovascular Details: Regular rhythm and rate. S1 and S2 present, negative for S3, gallop or murmur. No edema is present. Remote telemetry showing sinus tachycardia 108. Knee- high OTTO hose and sequential compression devices in place to his bilateral lower extremities. - Gastrointestinal Gastrointestinal Comment(s): Abdomen soft, distended, and nontender. Active bowel sounds all 4 abdominal quadrants. Tolerating oral intake. No bowel movement since , 2017. - Genitourinary Genitourinary Comment(s): Voiding clear yellow urine. 1625 mL output in the last 8 hours. - Integumentary Integumentary Comment(s): Skin is warm and dry. No clubbing or cyanosis present. Left chest incisions clean dry and intact. No drainage or redness present. Dressings are clean, dry and intact. - Neurologic Neurologic: Present: CNII-XII intact - Musculoskeletal Musculoskeletal: Present: gait normal, strength equal bilaterally - Psychiatric Psychiatric: Present: A&O x's 3, appropriate affect, intact judgment & insight - Allied health notes Allied health notes reviewed: nursing - Labs CBC & Chem 7: 04/13/18 05:22 04/13/18 05:22 Labs: Abnormal Lab Results - Last 24 Hours (Table) 04/13/18 04/13/18 Range/Units 05:22 05:22 WBC 14.8 H (3.8-10.6) k/uL RBC 4.21 L (4.30-5.90) m/uL Hgb 12.2 L (13.0-17.5) gm/dL Hct 35.5 L (39.0-53.0) % Neutrophils # 12.7 H (1.3-7.7) k/uL Lymphocytes # 0.8 L (1.0-4.8) k/uL Sodium 130 L (137-145) mmol/L Carbon Dioxide 20 L (22-30) mmol/L Glucose 111 H (74-99) mg/dL - Imaging and Cardiology Chest x-ray: report reviewed, image reviewed Assessment and Plan (1) Mass of upper lobe of left lung Current Visit: Yes Status: Acute Code(s): R91.8 - OTHER NONSPECIFIC ABNORMAL FINDING OF LUNG FIELD SNOMED Code(s): 752954034 (2) COPD (chronic obstructive pulmonary disease) Current Visit: Yes Status: Acute Code(s): J44.9 - CHRONIC OBSTRUCTIVE PULMONARY DISEASE, UNSPECIFIED SNOMED Code(s): 17744059 (3) GERD (gastroesophageal reflux disease) Current Visit: Yes Status: Acute Code(s): K21.9 - GASTRO-ESOPHAGEAL REFLUX DISEASE WITHOUT ESOPHAGITIS SNOMED Code(s): 893691251 (4) Hypertension Current Visit: Yes Status: Acute Code(s): I10 - ESSENTIAL (PRIMARY) HYPERTENSION SNOMED Code(s): 38729083 (5) Hyperlipidemia Current Visit: Yes Status: Acute Code(s): E78.5 - HYPERLIPIDEMIA, UNSPECIFIED SNOMED Code(s): 15277990 (6) History of depression Current Visit: Yes Status: Acute Code(s): Z86.59 - PERSONAL HISTORY OF OTHER MENTAL AND BEHAVIORAL DISORDERS SNOMED Code(s): 103086118 (7) Tobacco dependence in remission Current Visit: Yes Status: Acute Code(s): F17.201 - NICOTINE DEPENDENCE, UNSPECIFIED, IN REMISSION SNOMED Code(s): 203979868 (8) Scoliosis Current Visit: Yes Status: Acute Code(s): M41.9 - SCOLIOSIS, UNSPECIFIED SNOMED Code(s): 251294483 Plan: 1. Continue aspirin, statin, Cozaar and subcu heparin. 2. Encourage use of his incentive spirometry every hour while awake. Wean oxygen as tolerated to keep oxygen saturations greater than 92%. 3. Discontinue left pleural chest tube. 4. Monitor daily labs and chest x-rays. 5. Pain control per current regimen. 6. Increase activity as tolerated, out of bed for all meals. Physical therapy following. 7. Continue GI prophylaxis, Pepcid and DVT prophylaxis subcu heparin and SCDs. 8. Bronchodilators and pulmonary management per pulmonology recommendations. 9. Pathology results pending. 10. More recommendations to follow based on patient's clinical course. Anticipate discharge home in the next 24 hours. Time with Patient: Greater than 30
[2018-04-13] MEDS: TAMSULOSIN 0.4 MG CAP.ER.24H PO SCH (10:55)
--- NOTE | 2018-04-13 10:57 | P.PN ---
Subjective Progress Note Date: 04/13/18 Principal diagnosis: Left upper lobectomy, postoperative day #2 This is a 77-year-old white male presented recently to his primary care physician, he requested a routine chest x-ray mostly because he has known history of COPD, and has not had a chest x-ray and a long time. His chest x- ray in the office was abnormal, patient had a CT of the chest which confirmed left upper lobe mass consistent with carcinoma, PET scan was done, and it showed only one hypermetabolic focus correlating to the left upper lobe mass. Patient was referred to Dr. Handy, his preoperative PFT was adequate, and he underwent robotic-assisted thoracoscopic left upper lobectomy and mediastinal lymph node dissection. Postoperatively patient was sent to a monitor bed on selective, and I was asked to see him on consultation. Patient is doing well during my evaluation, denies any cough no wheezing no shortness of breath, and his pain seems to be fairly well controlled. Patient has strong family history of lung cancer, and strong family history of colon cancer. 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 Remote history of smoking, quit many years ago. Known history of scoliosis. The patient is seen again today 04/12/2018 in follow-up. Postoperative day #1. He remains awake and alert in no acute distress. Maintaining good O2 sat to saturations in the 90s on 3 L/m per nasal cannula. Asked x-ray reveals a left- sided pneumothorax measuring 5-10%. There is bilateral consolidation and small effusion which are stable. Chest tube remains in place. [facility] Working well with the incentive spirometer. Remains on DuoNeb inhalations. Heparin for DVT prophylaxis. Reevaluated today on 04/13/2018, patient is postoperative day #2. Doing well, ambulating down the hallway fine, continues to have left-sided chest tube in place. Patient denies being in any form of distress. Pain is fairly well controlled from the chest tube. Scale of 3 out of 10. O2 saturation is 94% patient seems to be quite anxious about being discharged home. No air leak noted in the chest tube, it is presently on waterseal. Has been, ambulating fine in the hallway with assistance. CBC was reviewed basic metabolic profile was reviewed sodium seems to be a bit low at 130. Chest x-ray was reviewed, no evidence of pneumothorax. There is left basilar atelectasis and small tiny effusion. Objective - Vital Signs Vital signs: Vital Signs Temp 98.0 F 04/13/18 07:50 Pulse 82 04/13/18 08:00 Resp 18 04/13/18 08:00 BP 142/98 04/13/18 07:50 Pulse Ox 93 L 04/13/18 07:50 Intake & Output 04/12/18 04/13/18 04/13/18 18:59 06:59 18:59 Intake Total 240 20 240 Output Total 2175 Balance 240 -2155 240 Weight 87.3 kg Intake: IV 20 0.9 20 Oral 240 240 Output: Chest Tube Drainage 150 Left Upper Lateral Chest 150 Drainage 100 Left Chest 100 Urine 1925 Other: Voiding Method Urinal Urinal Urinal # Voids 1 - Exam Physical Exam: Revealed a 77-year-old white male, asymptomatic, in no distress. Head: Atraumatic, normocephalic. HEENT:[Neck is supple.] [No neck masses.] [No thyromegaly.] [No JVD.] PERRLA, EOMI, no icterus, no cervical adenopathy. Chest: Left-sided chest tube is noted, good breath sound bilaterally, no rhonchi , no wheezes. Cardiac Exam: [Normal S1 and S2, no S3 gallop, no murmur.] Abdomen: [Soft, nontender, no megaly, no rebound, no guarding, normal bowel sounds.] Extremities: [No clubbing, no edema, no cyanosis.] Neurological Exam: [No focal neurologic deficit.] Psychiatric: Normal mood, affect, and mental status examination. Lymphatics: No lymphadenopathy. - Labs CBC & Chem 7: 04/13/18 05:22 04/13/18 05:22 Labs: Abnormal Lab Results - Last 24 Hours (Table) 04/13/18 04/13/18 Range/Units 05:22 05:22 WBC 14.8 H (3.8-10.6) k/uL RBC 4.21 L (4.30-5.90) m/uL Hgb 12.2 L (13.0-17.5) gm/dL Hct 35.5 L (39.0-53.0) % Neutrophils # 12.7 H (1.3-7.7) k/uL Lymphocytes # 0.8 L (1.0-4.8) k/uL Sodium 130 L (137-145) mmol/L Carbon Dioxide 20 L (22-30) mmol/L Glucose 111 H (74-99) mg/dL Assessment and Plan Assessment: 1 status post left upper lobectomy for left upper lobe mass, pathology is pending, patient is postoperative day #2. 2 mild COPD/asthmatic bronchitis as noted on his PFT from our office, continue bronchodilators. 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 And family history of colon cancer. Recommendation: Continue incentive spirometry, ambulation, bronchodilators, chest tube remains in place, possible discharge in the next 24-48 hours. Time with Patient: Less than 30
[2018-04-13 12:19] LABS: Appearance,Urine Clear (Clear); Bacteria,Urine Rare /hpf; Bilirubin,Urine Negative (Negative); Blood,Urine Trace (Negative); Color,Urine Light Yellow; Glucose,Urine (UA) Negative (Negative); Ketones,Urine Negative (Negative); Leukocyte Esterase,Urine Negative (Negative); Mucus,Urine Rare /hpf; Nitrite,Urine Negative (Negative); PH, Urine 5.5 (5.0-8.0); Protein,Urine Negative (Negative); RBC,Urine 1 /hpf (0-5); Specific Gravity,Urine 1.009 (1.001-1.035); Urobilinogen,Urine <2.0 mg/dL (<2.0); WBC,Urine <1 /hpf (0-5)
--- NOTE | 2018-04-13 12:32 | XR ---
EXAMINATION TYPE: XR chest 1V portable DATE OF EXAM: 04/13/2018 HISTORY: post chest tube removal. REFERENCE: Previous study dated 04/13/2018. FINDINGS: The patient's left pleural drain is been removed. No sizable pneumothorax is identified. The heart is enlarged. There is a left-sided effusion. I could not exclude a tiny right-sided effusio n. The lungs are otherwise clear. There is a marked scoliosis present. IMPRESSION: NO DEFINITE POST CHEST TUBE REMOVAL PNEUMOTHORAX.
--- NOTE | 2018-04-13 15:57 | CT ---
EXAMINATION TYPE: CT angio chest DATE OF EXAM: 04/13/2018 COMPARISON: Chest CT March 12, 2018. Chest x-ray earlier today and older studies. HISTORY: shortness of breath, history of lung cancer with recent partial pneumonectomy April 11. CT DLP: 293.7 mGycm. Automated Exposure Control for Dose Reduction was Utilized. CONTRAST: CTA scan of the thorax is performed with IV Contrast, patient injected with 100 mL of Isovue 370, pul monary embolism protocol. MIP Images are created on CT scanner and reviewed. FINDINGS: LUNGS: There is small left anterior apical pneumothorax, in retrospect was present on chest x-ray ear lier today. There is dense left hilar consolidation extending inferiorly with scattered nodular infil trate in the left lung base extending to pleural surface. Left-sided volume loss from recent surgery is noted. There is background mild underlying emphysematous change. There is some dependent atelectas is in the hyperexpanded right lung. There is tiny right pleural effusion. There is successful remova l of left lung spiculated mass or neoplasm. MEDIASTINUM: There is slightly suboptimal study with near equal contrast in right and left heart sys tems and some heterogeneity in more peripheral branches but there is no convincing CT evidence for ac melly pulmonary embolism. There are no greater than 1 cm hilar or mediastinal lymph nodes. Some promin ent but scattered subcentimeter thoracic lymph nodes are seen. Tiny pericardial effusion is now prese nt. Heart size is slightly more prominent but felt within normal limits. Coronary artery calcificatio n is again seen which is noted marker for coronary artery disease. Main pulmonary artery is dilated at 3.5 cm on axial image 57, CT findings suggesting underlying pulmonary artery hypertension. OTHER: Liver is diffusely low dense consistent with fatty infiltration. Marked scoliosis is redemonst rated. Diverticula in visualized upper colon are noted. IMPRESSION: Suboptimal study without CT evidence for acute pulmonary embolism. Small anterior left ap ical pneumothorax after chest tube removal noted. Left hilar consolidation with more irregular consol idation filling the left lung base could reflect acute infectious process.
[2018-04-13] MEDS ORDERED: CALCIUM CARBONATE 500 MG CHEWABLE PO PRN (16:00)
[2018-04-13] MEDS ORDERED: LACTULOSE 20 GM/30 ML CUP PO ONE (16:00)
[2018-04-13] MEDS: SENNOSIDES-DOCUSATE SODIUM 1 EACH TAB PO SCH (18:54)
[2018-04-13] MEDS: MELATONIN 5 MG TABLET PO SCH (20:37)
[2018-04-14] MEDS: IPRATROPIUM-ALBUTEROL 3 ML NEB IH PRN ×2 (00:30→04:09)
[2018-04-14] MEDS ORDERED: DEXTROSE 5% IN WATER 100 ML with AMIODARONE 150 MG IV ONE (01:12)
[2018-04-14] MEDS: AMIODARONE 450 MG in DEXTROSE 5% IN WATER 250 ML IV SCH ×4 (01:21→10:23)
[2018-04-14 05:20] LABS: Basophils % (A) 0 %; Eosinophils # (A) 0.3 k/uL (0-0.7); Eosinophils % (A) 3 %; HCT 33.5 % (39.0-53.0); HGB 11.2 gm/dL (13.0-17.5); Lymphocytes # (A) 0.9 k/uL (1.0-4.8); Lymphocytes % (A) 7 %; MCH 28.7 pg (25.0-35.0); MCHC 33.6 g/dL (31.0-37.0); MCV 85.4 fL (80.0-100.0); Mean Platelet Volume 6.8; Monocytes % (A) 7 %; Neutrophils # (A) 10.6 k/uL (1.3-7.7); Neutrophils % (A) 82 %; Platelet Count 430 k/uL (150-450); RBC 3.92 m/uL (4.30-5.90); RDW 12.6 % (11.5-15.5); WBC 12.9 k/uL (3.8-10.6)
[2018-04-14 05:31] LABS: Anion Gap 11 mmol/L; Blood Urea Nitrogen 16 mg/dL (9-20); Calcium 8.6 mg/dL (8.4-10.2); Carbon Dioxide 22 mmol/L (22-30); Chloride 98 mmol/L (98-107); Glucose 130 mg/dL (74-99); Potassium 3.4 mmol/L (3.5-5.1); Sodium 131 mmol/L (137-145)
[2018-04-14] MEDS: KETOROLAC 30 MG/ML 1 ML VIAL IVP SCH ×4 (06:27→23:13)
[2018-04-14] MEDS: METOCLOPRAMIDE 5 MG/ML 2 ML VIAL IVP SCH ×4 (06:28→23:12)
[2018-04-14] MEDS: IPRATROPIUM-ALBUTEROL 3 ML NEB IH SCH ×4 (06:53→19:31)
--- NOTE | 2018-04-14 06:55 | XR ---
EXAMINATION TYPE: XR chest 1V portable DATE OF EXAM: 04/14/2018 HISTORY: post op left upper lobectomy. REFERENCE: Previous study dated 04/13/2018. FINDINGS: Left apical pneumothorax seen on the previous CT scan cannot be appreciated on this study. The heart is enlarged. There is atelectasis in the left upper lobe. There is a gross dextroscoliosis. The right lung is clear. There is improved aeration at the left lung base. IMPRESSION: 1. CARDIOMEGALY. 2. SEVERE DEXTROSCOLIOSIS. 3. CARDIOMEGALY. 4. IMPROVED AERATION LEFT LUNG BASE. 5. PLATELIKE ATELECTASIS LEFT UPPER LOBE. 6. LEFT APICAL PNEUMOTHORAX CANNOT BE DEFINITELY APPRECIATED ON THIS STUDY.
[2018-04-14] MEDS ORDERED: Potassium Replacement Protocol 1 EACH MISC MISCELLANE PRN (07:29)
[2018-04-14] MEDS ORDERED: ACETAMINOPHEN TAB 325 MG TAB PO PRN (08:32)
[2018-04-14] MEDS: ASPIRIN 325 MG TAB PO SCH (08:49)
[2018-04-14] MEDS: TAMSULOSIN 0.4 MG CAP.ER.24H PO SCH (08:50)
[2018-04-14] MEDS: HYDROCHLOROTHIAZIDE 12.5 MG CAP PO SCH (08:50)
[2018-04-14] MEDS: SENNOSIDES-DOCUSATE SODIUM 1 EACH TAB PO SCH (08:50)
[2018-04-14] MEDS: FAMOTIDINE 20 MG TAB PO SCH (08:51)
[2018-04-14] MEDS: MONTELUKAST 10 MG TAB PO SCH (08:51)
[2018-04-14] MEDS: POTASSIUM CHLORIDE ER 20 MEQ TAB.ER PO SCH ×2 (08:52→10:28)
[2018-04-14] MEDS: ATORVASTATIN 40 MG TAB PO SCH (08:52)
[2018-04-14] MEDS: METOPROLOL TARTRATE 25 MG TAB PO SCH ×2 (08:52→20:02)
[2018-04-14] MEDS: LACTOBACILLUS ACIDOPH & BULGAR 1 EACH PACKET PO SCH (08:56)
[2018-04-14 09:39] LABS: Magnesium 1.7 mg/dL (1.6-2.3)
--- NOTE | 2018-04-14 10:03 | P.CRDCN ---
History of Present Illness Consult date: 04/14/18 Chief complaint: Heart racing History of present illness: This is a pleasant 77-year-old gentleman who sees Dr. Tran in the office as an outpatient with a past medical history significant for hypertension and dyslipidemia was admitted to the hospital and underwent a robotic-assisted thoracoscopic right upper lobectomy with mediastinal lymph node dissection. The procedure was performed on 04/11/2018. The procedure was uneventful. The procedure was performed for carcinoma in the lung was diagnosed recently. We get involved in his care because during his hospital stay he did have an episode of heart racing and fluttering and the telemetry showed tachycardia. Subsequently 12 please EKG showed atrial fibrillation with RVR and the patient was started on amiodarone IV and subsequently he was converted to normal sinus mechanism and he has been maintaining normal sinus mechanism. The atrial fibrillation is new to the patient. The patient denies having any chest pain or discomfort. He does have chronic obstructive pulmonary disease and does have baseline shortness of breath. No dizziness or lightheadedness. He did feel the heart was racing up. The patient underwent a heart catheterization earlier this month and that revealed mild triple-vessel coronary artery disease. No echocardiogram was performed recently. Past Medical History Past Medical History: COPD, GERD/Reflux, Hyperlipidemia, Hypertension Additional Past Medical History / Comment(s): seasaonal allergies History of Any Multi-Drug Resistant Organisms: None Reported Past Surgical History: Back Surgery Past Anesthesia/Blood Transfusion Reactions: No Reported Reaction Past Psychological History: Depression Smoking Status: Former smoker Past Alcohol Use History: None Reported Additional Past Alcohol Use History / Comment(s): smoked 30 years off and on 1ppd quit 2009 Past Drug Use History: None Reported - Past Family History Sister(s) Family Medical History: Cancer Additional Family Medical History / Comment(s): lung and colon cancer Medications and Allergies Home Medications Medication Instructions Recorded Confirmed Type Aclidinium [place] [Tudorza 400 mcg PO BID 04/02/18 04/11/18 History Pressair] Aspirin 325 mg PO DAILY 04/02/18 04/11/18 History Atorvastatin [Lipitor] 40 mg PO DAILY 04/02/18 04/11/18 History Famotidine [Pepcid] 40 mg PO DAILY 04/02/18 04/11/18 History Glucosamine Sulfate 500 mg PO DAILY 04/02/18 04/11/18 History L.acidoph,Paracasei, B.lactis 1 cap PO DAILY 04/02/18 04/11/18 History [Probiotic] Losartan/Hydrochlorothiazide 1 tab PO DAILY 04/02/18 04/11/18 History [Losartan-Hctz 100-12.5 mg Tab] Montelukast Sodium [Singulair] 10 mg PO DAILY 04/02/18 04/11/18 History Allergies Allergy/AdvReac Type Severity Reaction Status Date / Time No Known Allergies Allergy Verified 04/11/18 11:29 Physical Exam Vitals: Vital Signs Temp Pulse Pulse Resp BP BP Pulse Ox 04/14/18 04:09 130 H 04/14/18 04:00 97 F L 125 H 18 110/75 96 04/14/18 00:42 80 04/14/18 00:30 84 04/14/18 00:00 97.5 F L 109 H 22 128/72 97 04/13/18 20:00 97.4 F L 109 H 18 127/82 95 04/13/18 19:34 80 04/13/18 19:23 80 04/13/18 16:00 97.5 F L 120 H 18 129/83 92 L 04/13/18 15:57 80 04/13/18 15:43 80 04/13/18 12:00 97.4 F L 106 H 18 172/102 91 L 04/13/18 11:58 80 04/13/18 11:47 84 Intake and Output 04/13/18 04/14/18 04/14/18 22:59 06:59 14:59 Intake Total 718 446.09 Output Total 1850 400 Balance -1132 -400 446.09 Intake: Intake, IV Titration 206.09 Amount Amiodarone 450 mg In 206.09 Dextrose 5% in Water 250 ml @ 1 MG/MIN 33.33 mls/ hr IV .Q7H31M [facility] Rx#: [id number] Oral 718 240 Output: Urine 1850 400 Uretheral (Rai) 1500 Other: Voiding Method Indwelling Catheter Indwelling Catheter # Bowel Movements 1 Weight 81 kg - Constitutional General appearance: no acute distress - Respiratory Respiratory: bilateral: diminished - Cardiovascular Rhythm: regular Heart sounds: normal: S1, S2 Abnormal Heart Sounds: systolic murmur Results 04/14/18 04:51 04/14/18 04:51 CBC 10/14/18 Range/Units 04:51 WBC 12.9 H (3.8-10.6) k/uL RBC 3.92 L (4.30-5.90) m/uL Hgb 11.2 L (13.0-17.5) gm/dL Hct 33.5 L (39.0-53.0) % Plt Count 430 (150-450) k/uL Comprehensive Metabolic Panel 04/14/18 Range/Units 04:51 Sodium 131 L (137-145) mmol/L Potassium 3.4 L (3.5-5.1) mmol/L Chloride 98 (98-107) mmol/L Carbon Dioxide 22 (22-30) mmol/L BUN 16 (9-20) mg/dL Creatinine 0.93 (0.66-1.25) mg/dL Glucose 130 H (74-99) mg/dL Calcium 8.6 (8.4-10.2) mg/dL Current Medications Generic Name Dose Route Start Last Admin Trade Name Freq PRN Reason Stop Dose Admin Acetaminophen 650 mg 04/14/18 08:32 Tylenol Tab PO Q4HR PRN Fever and/ or Mild Pain Albuterol/Ipratropium 3 ml 04/11/18 10:57 04/14/18 04:09 Duoneb 0.5 Mg-3 Mg/3 Ml Soln IH 3 ml RT-Q1H PRN Administration Shortness Of Breath Or Wheezing Albuterol/Ipratropium 3 ml 04/11/18 12:00 04/14/18 06:53 Duoneb 0.5 Mg-3 Mg/3 Ml Soln IH Not Given RT-QID [facility] Amiodarone HCl 400 mg 04/14/18 09:48 Cordarone PO BID AIXA Aspirin 325 mg 04/12/18 09:00 04/14/18 08:49 Aspirin PO 325 mg DAILY AIXA Administration Atorvastatin Calcium 40 mg 04/12/18 09:00 04/14/18 08:52 Lipitor PO 40 mg DAILY AIXA Administration Calcium Carbonate/Glycine 1,000 mg 04/13/18 16:00 Tums PO QID PRN Heartburn Famotidine 40 mg 04/12/18 09:00 04/14/18 08:51 Pepcid PO 40 mg DAILY AIXA Administration Heparin Sodium (Porcine) 5,000 unit 04/11/18 16:00 04/13/18 23:20 Heparin SQ 5,000 unit Q8HR [facility] Administration Hydrochlorothiazide 12.5 mg 04/12/18 09:00 04/14/18 08:50 Hydrodiuril PO 12.5 mg DAILY AIXA Administration Ketorolac Tromethamine 15 mg 04/11/18 12:00 04/14/18 06:27 Toradol IVP 04/15/18 11:01 15 mg Q6HR [facility] Administration Lactobacillus Acidoph/Bulgaricus 1 each 04/12/18 09:00 04/14/18 08:56 Lactinex PO 1 each DAILY AIXA Administration Losartan Potassium 100 mg 04/12/18 09:00 04/13/18 08:38 Cozaar PO 100 mg DAILY [facility] Administration Magnesium Hydroxide 2,400 mg 04/14/18 08:31 Milk Of Magnesia PO ONCE PRN Constipation Melatonin 10 mg 04/13/18 21:00 04/13/18 20:37 Melatonin PO 10 mg HS [facility] Administration Metoclopramide HCl 5 mg 04/13/18 18:15 04/14/18 06:28 Reglan IVP 5 mg Q6HR [facility] Administration Metoprolol Tartrate 25 mg 04/14/18 09:00 04/14/18 08:52 Lopressor PO 25 mg BID AIXA Administration Miscellaneous Information 1 each 04/14/18 07:29 Potassium Per Protocol MISCELLANE DAILY PRN Per Protocol Protocol Montelukast Sodium 10 mg 04/12/18 09:00 04/14/18 08:51 Singulair PO 10 mg DAILY [facility] Administration Ondansetron HCl 4 mg 04/11/18 10:57 Zofran IVP Q8HR PRN Nausea And Vomiting Senna/Docusate Sodium 1 each 04/13/18 18:30 04/14/18 08:50 Senokot-S PO 1 each DAILY AIXA Administration Tamsulosin HCl 0.4 mg 04/13/18 10:00 04/14/18 08:50 Flomax PO 0.4 mg [id number] AIXA Administration Intake and Output 04/13/18 04/14/18 04/14/18 22:59 06:59 14:59 Intake Total 718 446.09 Output Total 1850 400 Balance -1132 -400 446.09 Intake: Intake, IV Titration 206.09 Amount Amiodarone 450 mg In 206.09 Dextrose 5% in Water 250 ml @ 1 MG/MIN 33.33 mls/ hr IV .Q7H31M [facility] Rx#: [id number] Oral 718 240 Output: Urine 1850 400 Uretheral (Rai) 1500 Other: Voiding Method Indwelling Catheter Indwelling Catheter # Bowel Movements 1 Weight 81 kg 04/14/18 04:51 04/14/18 04:51 Assessment and Plan Assessment: Assessment Status post robotic assisted thoracoscopic right upper lobectomy for carcinoma Known chronic obstructive pulmonary disease/chronic respiratory failure Paroxysmal atrial fibrillation. The patient converted to normal sinus mechanism. This is a new to the patient Mild CAD based on heart catheterization was performed recently Hypertension Plan The patient was started on amiodarone IV and currently is on amiodarone by mouth Agree about adding small dose of metoprolol to the current medical regimen Obtain an echocardiogram was Doppler Consider oral anticoagulation once the patient is safe from the surgical standpoint overview. Thank you for allowing us participate in the patient's care and we'll continue following up with
--- NOTE | 2018-04-14 10:13 | P.PN ---
Subjective Progress Note Date: 04/14/18 Principal diagnosis: Left upper lobe mass consistent with carcinoma, chronic obstructive pulmonary disease, GERD, hypertension, hyperlipidemia, history of depression, history of remote tobacco dependence smoking in 2010 and history of scoliosis. POD #3 robotic-assisted thoracoscopic left upper lobectomy with mediastinal lymph node dissection. Postoperative urinary retention requiring reinitiation of his Rai catheter, an unexpected outcome. Postoperative paroxysmal atrial fibrillation, an unexpected outcome. The patient is currently sitting up to his bedside chair. He is in no acute distress. He is currently complaining of constipation and shortness of breath. He denies any complaints of pain at this time. Oxygen saturations are 96% on 4 L nasal cannula. He is achieving 500-750 mL on his incentive spirometry. tech brazer tester reports the patient had an episode of atrial fibrillation early this morning with heart rates ranging from 150-170 bpm. He was started on an amiodarone drip per protocol. The patient also had some urinary retention yesterday requiring reinitiation of his Rai catheter and initiation of Flomax 0.4 mg by mouth daily. Objective - Vital Signs Vital signs: Vital Signs Temp 97 F L 04/14/18 04:00 Pulse 130 H 04/14/18 04:09 Resp 18 04/14/18 04:00 BP 110/75 04/14/18 04:00 Pulse Ox 96 04/14/18 04:00 Intake & Output 04/13/18 04/14/18 04/14/18 18:59 06:59 18:59 Intake Total 1180 600 446.09 Output Total 50 2250 Balance 1130 -1650 446.09 Weight 81 kg Intake: Intake, IV Titration 206.09 Amount Amiodarone 450 mg In 206.09 Dextrose 5% in Water 250 ml @ 1 MG/MIN 33.33 mls/ hr IV .Q7H31M [facility] Rx#: [id number] Oral 1180 600 240 Output: Drainage 50 Left Chest 50 Urine 2250 Uretheral (Rai) 1500 Other: Voiding Method Indwelling Catheter Indwelling Catheter # Bowel Movements 1 - Constitutional General appearance: Present: cooperative, no acute distress, obese - Respiratory Details: Lung sounds with expiratory wheezes throughout, diminished to his left lower lobe. Respirations are symmetrical and nonlabored. Oxygen saturation are 96% on 4 L nasal cannula. He is achieving 500-750 mL on his incentive spirometry with encouragement. His left pleural chest tube was discontinued yesterday. - Cardiovascular Details: Regular rhythm and tachycardic rate. S1 and S2 present, negative for S3, gallop or murmur. Remote telemetry showing sinus tachycardia heart rate 104. Amiodarone drip at 0.5 mg/m. No edema present. Knee-high OTTO hose and sequential compression devices in place to his bilateral lower extremities. - Gastrointestinal Gastrointestinal Comment(s): Abdomen soft, nontender and nondistended. Active bowel sounds all 4 abdominal quadrants. Tolerating oral intake. No bowel movement since Sunday, 2017. - Genitourinary Genitourinary Comment(s): Rai catheter for urine retention. Draining clear yellow urine. 400 mL output in the last 8 hours. - Integumentary Integumentary Comment(s): Skin is warm and dry. No clubbing or cyanosis present. No rash or abnormal pigmentation present. Left chest incision sites clean dry and approximated. Dressings clean and dry. - Neurologic Neurologic: Present: CNII-XII intact - Musculoskeletal Musculoskeletal: Present: gait normal, strength equal bilaterally - Psychiatric Psychiatric: Present: A&O x's 3, appropriate affect, intact judgment & insight - Allied health notes Allied health notes reviewed: nursing - Labs CBC & Chem 7: 04/14/18 04:51 04/14/18 04:51 Labs: Abnormal Lab Results - Last 24 Hours (Table) 04/13/18 04/14/18 04/14/18 Range/Units 11:49 04:51 04:51 WBC 12.9 H (3.8-10.6) k/uL RBC 3.92 L (4.30-5.90) m/uL Hgb 11.2 L (13.0-17.5) gm/dL Hct 33.5 L (39.0-53.0) % Neutrophils # 10.6 H (1.3-7.7) k/uL Lymphocytes # 0.9 L (1.0-4.8) k/uL Sodium 131 L (137-145) mmol/L Potassium 3.4 L (3.5-5.1) mmol/L Glucose 130 H (74-99) mg/dL Urine Blood Trace H (Negative) Urine Bacteria Rare H (None) /hpf Urine Mucus Rare H (None) /hpf - Imaging and Cardiology Chest x-ray: report reviewed, image reviewed Assessment and Plan (1) Mass of upper lobe of left lung Current Visit: Yes Status: Acute Code(s): R91.8 - OTHER NONSPECIFIC ABNORMAL FINDING OF LUNG FIELD SNOMED Code(s): 810667856 (2) COPD (chronic obstructive pulmonary disease) Current Visit: Yes Status: Acute Code(s): J44.9 - CHRONIC OBSTRUCTIVE PULMONARY DISEASE, UNSPECIFIED SNOMED Code(s): 42723617 (3) GERD (gastroesophageal reflux disease) Current Visit: Yes Status: Acute Code(s): K21.9 - GASTRO-ESOPHAGEAL REFLUX DISEASE WITHOUT ESOPHAGITIS SNOMED Code(s): 218627777 (4) Hypertension Current Visit: Yes Status: Acute Code(s): I10 - ESSENTIAL (PRIMARY) HYPERTENSION SNOMED Code(s): 75247254 (5) Hyperlipidemia Current Visit: Yes Status: Acute Code(s): E78.5 - HYPERLIPIDEMIA, UNSPECIFIED SNOMED Code(s): 13096753 (6) History of depression Current Visit: Yes Status: Acute Code(s): Z86.59 - PERSONAL HISTORY OF OTHER MENTAL AND BEHAVIORAL DISORDERS SNOMED Code(s): 843733925 (7) Tobacco dependence in remission Current Visit: Yes Status: Acute Code(s): F17.201 - NICOTINE DEPENDENCE, UNSPECIFIED, IN REMISSION SNOMED Code(s): 091571129 (8) Scoliosis Current Visit: Yes Status: Acute Code(s): M41.9 - SCOLIOSIS, UNSPECIFIED SNOMED Code(s): 631300278 Plan: 1. Continue aspirin, statin, Cozaar and subcu heparin. 2. Encourage use of his incentive spirometry every hour while awake. Wean oxygen as tolerated to keep oxygen saturations greater than 92%. 3. Milk of magnesia 1 now for complaints of constipation. Senokot one by mouth daily. 4. Monitor daily labs and chest x-rays. 5. Pain control per current regimen. Discontinue tramadol, acetaminophen 650 mg by mouth every 4 hours when necessary pain. 6. Increase activity as tolerated, out of bed for all meals. Physical therapy following. 7. Continue GI prophylaxis, Pepcid and DVT prophylaxis subcu heparin and SCDs. 8. Bronchodilators and pulmonary management per pulmonology recommendations. 9. Pathology results pending. 10. Metoprolol 25 mg by mouth twice a day for tachycardia and atrial fibrillation prophylaxis. 11. Amiodarone 400 mg by mouth twice a day started for atrial fibrillation prophylaxis. 12. Consult cardiology for atrial fibrillation. 13. Continue Rai catheter for urinary retention, continue Flomax 0.4 mg by mouth daily. 14. More recommendations to follow based on patient's clinical course. Time with Patient: Greater than 30
[2018-04-14] MEDS: MAGNESIUM HYDROXIDE 2,400 MG/10 ML CUP PO PRN ×2 (10:26→23:12)
[2018-04-14] MEDS: AMIODARONE 200 MG TAB PO SCH ×2 (10:27→20:01)
[2018-04-14] MEDS: HEPARIN SODIUM,PORCINE 5,000 UNIT/ML 1 ML VIAL SQ SCH ×3 (10:28→23:12)
--- NOTE | 2018-04-14 10:45 | P.PN ---
Subjective Progress Note Date: 04/14/18 Principal diagnosis: Left upper lobectomy, postoperative day #3 This is a 77-year-old white male presented recently to his primary care physician, he requested a routine chest x-ray mostly because he has known history of COPD, and has not had a chest x-ray and a long time. His chest x- ray in the office was abnormal, patient had a CT of the chest which confirmed left upper lobe mass consistent with carcinoma, PET scan was done, and it showed only one hypermetabolic focus correlating to the left upper lobe mass. Patient was referred to Dr. Handy, his preoperative PFT was adequate, and he underwent robotic-assisted thoracoscopic left upper lobectomy and mediastinal lymph node dissection. Postoperatively patient was sent to a monitor bed on selective, and I was asked to see him on consultation. Patient is doing well during my evaluation, denies any cough no wheezing no shortness of breath, and his pain seems to be fairly well controlled. Patient has strong family history of lung cancer, and strong family history of colon cancer. 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 Remote history of smoking, quit many years ago. Known history of scoliosis. The patient is seen again today 04/12/2018 in follow-up. Postoperative day #1. He remains awake and alert in no acute distress. Maintaining good O2 sat to saturations in the 90s on 3 L/m per nasal cannula. Asked x-ray reveals a left- sided pneumothorax measuring 5-10%. There is bilateral consolidation and small effusion which are stable. Chest tube [facility] in place[facility] Working well with the incentive spirometer. Remains on DuoNeb inhalations. Heparin for DVT prophylaxis. Reevaluated today on 04/13/2018, patient is postoperative day #2. Doing well, ambulating down the hallway fine, continues to have left-sided chest tube in place. Patient denies being in any form of distress. Pain is fairly well controlled from the chest tube. Scale of 3 out of 10. O2 saturation is 94% patient seems to be quite anxious about being discharged home. No air leak noted in the chest tube, it is presently on waterseal. Has been, ambulating fine in the hallway with assistance. CBC was reviewed basic metabolic profile was reviewed sodium seems to be a bit low at 130. Chest x-ray was reviewed, no evidence of pneumothorax. There is left basilar atelectasis and small tiny effusion. Patient was reevaluated today on 04/14/2018, I was notified about this patient late in the afternoon yesterday about having shortness of breath. CT angiogram of the chest showed mostly left lower lobe atelectasis, no evidence of thromboembolic disease. Later in the evening, the patient developed atrial fibrillation with RVR, started on amiodarone drip and subsequently he converted to a normal sinus rhythm. No previous history of atrial fibrillation, however I believe this atrial fibrillation is mostly induced by recent lobectomy. Patient is presently asymptomatic, denies any chest pain, no cough no wheezing, he continues to have some dyspnea on exertion. He was seen by cardiology on consultation, advised to switch amiodarone to oral and added small dose of metoprolol. Labs were reviewed potassium is a bit low at 3.4 being corrected CBC is relatively normal. Patient also had urinary retention yesterday, started on Flomax, and Rai catheter was placed back in again. Objective - Vital Signs Vital signs: Vital Signs Temp 97.7 F 04/14/18 08:00 Pulse 85 04/14/18 08:00 Resp 18 04/14/18 08:00 BP 109/64 04/14/18 08:00 Pulse Ox 95 04/14/18 08:00 Intake & Output 04/13/18 04/14/18 04/14/18 18:59 06:59 18:59 Intake Total 1180 600 446.09 Output Total 50 2250 Balance 1130 -1650 446.09 Weight 81 kg Intake: Intake, IV Titration 206.09 Amount Amiodarone 450 mg In 206.09 Dextrose 5% in Water 250 ml @ 1 MG/MIN 33.33 mls/ hr IV .Q7H31M [facility] Rx#: [id number] Oral 1180 600 240 Output: Drainage 50 Left Chest 50 Urine 2250 Uretheral (Rai) 1500 Other: Voiding Method Indwelling Catheter Indwelling Catheter Indwelling Catheter # Bowel Movements 1 - Exam Physical Exam: Revealed a 77-year-old white male, in no distress. Head: Atraumatic, normocephalic. HEENT:[Neck is supple.] [No neck masses.] [No thyromegaly.] [No JVD.] PERRLA, EOMI, no icterus, no cervical adenopathy. Chest: Left-sided chest tube is noted, good breath sound bilaterally, no rhonchi , no wheezes. Cardiac Exam: [Normal S1 and S2, no S3 gallop, no murmur.] Abdomen: [Soft, nontender, no megaly, no rebound, no guarding, normal bowel sounds.] Extremities: [No clubbing, no edema, no cyanosis.] Neurological Exam: [No focal neurologic deficit.] Psychiatric: Normal mood, affect, and mental status examination. Lymphatics: No lymphadenopathy. - Labs CBC & Chem 7: 04/14/18 04:51 04/14/18 04:51 Labs: Abnormal Lab Results - Last 24 Hours (Table) 04/13/18 04/14/18 04/14/18 Range/Units 11:49 04:51 04:51 WBC 12.9 H (3.8-10.6) k/uL RBC 3.92 L (4.30-5.90) m/uL Hgb 11.2 L (13.0-17.5) gm/dL Hct 33.5 L (39.0-53.0) % Neutrophils # 10.6 H (1.3-7.7) k/uL Lymphocytes # 0.9 L (1.0-4.8) k/uL Sodium 131 L (137-145) mmol/L Potassium 3.4 L (3.5-5.1) mmol/L Glucose 130 H (74-99) mg/dL Urine Blood Trace H (Negative) Urine Bacteria Rare H (None) /hpf Urine Mucus Rare H (None) /hpf Assessment and Plan Assessment: 1 status post left upper lobectomy for left upper lobe mass, postoperative day # 3. 2 mild COPD/asthmatic bronchitis as noted on his PFT from our office, continue bronchodilators. 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 And family history of colon cancer. 8. New Onset atrial fibrillation with RVR, responded to amiodarone, not unusual finding post thoracotomy/expected. 9 postoperative pneumothorax and left lower lobe atelectasis, both are expected findings after thoracotomy. 10 postoperative urinary retention, Rai catheter was placed back in, and patient is now on Flomax. This is also not unexpected findings., It is expected. Recommendation: Continue incentive spirometry, ambulation, bronchodilators, chest tube remains in place, oral amiodarone and beta blockers were added today , not quite ready for any discharge planning at this point. We'll continue to follow. Time with Patient: Less than 30
[2018-04-14] MEDS: LOSARTAN 50 MG TAB PO SCH (13:30)
[2018-04-14] MEDS: MELATONIN 5 MG TABLET PO SCH (20:01)
[2018-04-15] MEDS: KETOROLAC 30 MG/ML 1 ML VIAL IVP SCH (06:09)
[2018-04-15] MEDS: METOCLOPRAMIDE 5 MG/ML 2 ML VIAL IVP SCH ×4 (06:09→23:23)
--- NOTE | 2018-04-15 07:41 | XR ---
EXAMINATION TYPE: XR chest 1V portable DATE OF EXAM: 04/15/2018 COMPARISON: Prior chest x-ray 04/14/[address] 04/13/2018 HISTORY: Postop left upper lobectomy TECHNIQUE: Single frontal view of the chest is obtained. FINDINGS: Findings are similar to prior exam. There is marked scoliosis. No evident pneumothorax, ex am may be limited for evaluation. Volume loss present in left hemithorax. Difficult to exclude retroc ardiac density. There are overlying cardiac leads. IMPRESSION: Postop changes. Difficult to exclude atelectatic change, correlate to exclude pneumonia. Difficult to exclude pneumothorax.
[2018-04-15] MEDS: ASPIRIN 325 MG TAB PO SCH (08:43)
[2018-04-15] MEDS: AMIODARONE 200 MG TAB PO SCH ×2 (08:43→20:53)
[2018-04-15] MEDS: SENNOSIDES-DOCUSATE SODIUM 1 EACH TAB PO SCH (08:43)
[2018-04-15] MEDS: MONTELUKAST 10 MG TAB PO SCH (08:43)
[2018-04-15] MEDS: TAMSULOSIN 0.4 MG CAP.ER.24H PO SCH (08:44)
[2018-04-15] MEDS: HEPARIN SODIUM,PORCINE 5,000 UNIT/ML 1 ML VIAL SQ SCH ×3 (08:44→23:23)
[2018-04-15] MEDS: IPRATROPIUM-ALBUTEROL 3 ML NEB IH SCH ×4 (08:44→19:15)
[2018-04-15] MEDS: ATORVASTATIN 40 MG TAB PO SCH (08:44)
[2018-04-15] MEDS: METOPROLOL TARTRATE 25 MG TAB PO SCH (08:44)
[2018-04-15] MEDS: LACTOBACILLUS ACIDOPH & BULGAR 1 EACH PACKET PO SCH (08:44)
[2018-04-15] MEDS: LOSARTAN 50 MG TAB PO SCH (08:46)
[2018-04-15] MEDS: HYDROCHLOROTHIAZIDE 12.5 MG CAP PO SCH (08:47)
[2018-04-15] MEDS: FAMOTIDINE 20 MG TAB PO SCH (08:49)
[2018-04-15 08:59] LABS: Basophils % (A) 0 %; Eosinophils # (A) 1.9 k/uL (0-0.7); Eosinophils % (A) 14 %; HCT 34.9 % (39.0-53.0); HGB 11.7 gm/dL (13.0-17.5); Lymphocytes # (A) 1.1 k/uL (1.0-4.8); Lymphocytes % (A) 8 %; MCH 28.6 pg (25.0-35.0); MCHC 33.4 g/dL (31.0-37.0); MCV 85.6 fL (80.0-100.0); Mean Platelet Volume 6.4; Monocytes % (A) 7 %; Neutrophils # (A) 9.3 k/uL (1.3-7.7); Neutrophils % (A) 69 %; Platelet Count 517 k/uL (150-450); RBC 4.08 m/uL (4.30-5.90); RDW 12.5 % (11.5-15.5); WBC 13.5 k/uL (3.8-10.6)
[2018-04-15 09:10] LABS: Calcium 9.1 mg/dL (8.4-10.2); Magnesium 2.3 mg/dL (1.6-2.3); Potassium 5.7 mmol/L (3.5-5.1)
--- NOTE | 2018-04-15 12:24 | P.PN ---
Subjective Progress Note Date: 04/15/18 Subtle pleasant 77-year-old gentleman who follows with Dr. Tran in the office. Has past medical history significant for hypertension, and dyslipidemia. Was initially admitted to the hospital and underwent a robotic- assisted thoracoscopic right upper lobectomy with mediastinal lymph node dissection. This procedure was done on 04/11/2018 and was uneventful. Procedure was performed for carcinoma in the lung which was diagnosed recently. See the patient in consultation due to an episode of racing and fluttering with tachycardia on telemetry. 12-lead EKG showed atrial fibrillation with rapid ventricular response and the patient was started on IV amiodarone. He subsequently converted to sinus rhythm and has been maintaining sinus rhythm. Paroxysmal atrial fibrillation is new to the patient. He denies having any chest discomfort or pain, dizziness, lightheadedness. He did feel when his heart was racing. And he does have COPD and shortness of breath is at his baseline. The patient did undergo a heart catheterization earlier this month that revealed mild triple-vessel CAD. Echocardiogram has been ordered, we are awaiting results. Objective - Vital Signs Vital signs: Vital Signs Temp 98.2 F 04/15/18 08:00 Pulse 96 04/15/18 12:04 Resp 22 04/15/18 08:00 BP 154/80 04/15/18 08:00 Pulse Ox 98 04/15/18 08:00 Intake & Output 04/14/18 04/15/18 04/15/18 18:59 06:59 18:59 Intake Total 564.09 222 340 Output Total 350 375 Balance 214.09 -153 340 Weight 85.8 kg Intake: Intake, IV Titration 206.09 Amount Amiodarone 450 mg In 206.09 Dextrose 5% in Water 250 ml @ 1 MG/MIN 33.33 mls/ hr IV .Q7H31M [facility] [place] Rx#: [id number] Oral 358 222 340 Output: Urine 350 375 Other: Voiding Method Indwelling Catheter Indwelling Catheter - Exam PHYSICAL EXAMINATION: HEENT: Head is atraumatic, normocephalic. Pupils equal, round. Neck is supple. There is no elevated jugular venous pressure. HEART EXAMINATION: Heart sounds regular, S1 and S2 with systolic murmur. CHEST EXAMINATION: Lungs wheezing noted to left lung and diminished air entry to the right. No chest wall tenderness is noted on palpation or with deep breathing. ABDOMEN: Soft, nontender. Bowel sounds are heard. No organomegaly noted. EXTREMITIES: 2+ peripheral pulses with no evidence of peripheral edema and no calf tenderness noted. NEUROLOGIC patient is awake, alert and oriented x3. . - Labs CBC & Chem 7: 04/15/18 08:24 04/15/18 08:24 Labs: Abnormal Lab Results - Last 24 Hours (Table) 04/15/18 04/15/18 Range/Units 08:24 08:24 WBC 13.5 H (3.8-10.6) k/uL RBC 4.08 L (4.30-5.90) m/uL Hgb 11.7 L (13.0-17.5) gm/dL Hct 34.9 L (39.0-53.0) % Plt Count 517 H (150-450) k/uL Neutrophils # 9.3 H (1.3-7.7) k/uL Eosinophils # 1.9 H (0-0.7) k/uL Sodium 134 L (137-145) mmol/L Potassium 5.7 H (3.5-5.1) mmol/L Chloride 97 L (98-107) mmol/L BUN 25 H (9-20) mg/dL Assessment and Plan Assessment: #1 status post robotic-assisted thorascopic right upper lobectomy for carcinoma #2 known COPD #3 paroxysmal atrial fibrillation with rapid ventricular response, maintaining sinus rhythm #4 mild CAD based on heart catheterization which was performed recently #5 hypertension Plan: From Audit Consultant perspective, continue current medications. Awaiting echocardiogram results. Consider oral anticoagulation once the patient is safe from a surgical standpoint. We'll continue to follow patient prior to further recommendations accordingly. JOB RECRUITER note has been reviewed, I agree with a documented findings and plan of care. Patient was seen and examined.
--- NOTE | 2018-04-15 12:30 | ECHOF ---
Referral Reason:Echo MEASUREMENTS -------- HEIGHT: 167.6 cm WEIGHT: 85.7 kg BP: 131/75 IVSd: 1.2 cm (0.6 - 1.1) LVIDd: 2.8 cm (3.9 - 5.3) LVPWd: 1.1 cm (0.6 - 1.1) IVSs: 1.4 cm LVIDs: 1.7 cm LVPWs: 1.9 cm Ao Diam: 3.9 cm (2.0 - 3.7) AV Cusp: 1.5 cm (1.5 - 2.6) LA Diam: 3.1 cm (2.7 - 3.8) MV EXCURSION: 11.800 mm (> 18.000) MV EF SLOPE: 74 mm/s (70 - 150) EPSS: 1.3 cm MV E Vicente: 0.76 m/s MV DecT: 109 ms MV A Vicente: 0.81 m/s MV E/A Ratio: 0.93 RAP: 5.00 mmHg RVSP: 7.73 mmHg FINDINGS -------- Sinus rhythm with extra systolic beats. This was a technically good study. The left ventricular size is normal. There is borderline concentric left ventricular hypertrophy. Overall left ventricular systolic function is normal with, an EF between 55 - 60 %. The right ventricle is normal in size and function. The left atrium is normal in size. The right atrium is normal in size. The aortic valve is trileaflet, and appears structurally normal. No aortic stenosis or regurgitation. Mild mitral regurgitation is present. Trace tricuspid regurgitation present. The right ventricular systolic pressure, as measured by Dopp ler, is 7.73mmHg. Pulmonic valve appears structurally normal. The aortic root, ascending aorta and aortic arch are normal. The pericardium is normal. CONCLUSIONS -------- 1. Sinus rhythm with extra systolic beats. 2. This was a technically good study. 3. The left ventricular size is normal. 4. There is borderline concentric left ventricular hypertrophy. 5. Overall left ventricular systolic function is normal with, an EF between 55 - 60 %. 6. The right ventricle is normal in size and function. 7. The left atrium is normal in size. 8. The right atrium is normal in size. 9. The aortic valve is trileaflet, and appears structurally normal. No aortic stenosis or regurgitati on. 10. Mild mitral regurgitation is present. 11. Trace tricuspid regurgitation present. 12. The right ventricular systolic pressure, as measured by Doppler, is 7.73mmHg. 13. Pulmonic valve appears structurally normal. 14. The aortic root, ascending aorta and aortic arch are normal. 15. The pericardium is normal. ADVERTISING OPERATIONS MANAGER: Sara Laws RDCS
--- NOTE | 2018-04-15 14:02 | P.PN ---
Subjective Progress Note Date: 04/15/18 Principal diagnosis: Lung mass Progress note dated 04/15/2018 77-year-old male postop day #4, status post left upper lobectomy for a lung mass. In addition, he has a history of mild asthmatic bronchitis Anand's esophagus benign essential hypertension severe scoliosis remote tobacco use family history of lung cancer, new onset atrial fibrillation postoperative pneumothorax and postoperative urinary retention. In my opinion, the chest x- ray shows some loss of lung volume in the left lower lobe versus atelectasis/ infiltrate. The patient is doing very poorly on his incentive spirometer. He can only get 250. The patient needs to continue working on that every hour. In addition, we are going to have respiratory therapist do manual or mechanical chest physiotherapy to the left lower lobe. Currently, the patient is stable. He is not requiring any supplemental oxygen. The patient does not have any pain. Discharge as per cardiothoracic surgery. As of this morning, pathology still pending. Objective - Vital Signs Vital signs: Vital Signs Temp 98.2 F 04/15/18 08:00 Pulse 96 04/15/18 12:04 Resp 22 04/15/18 08:00 BP 154/80 04/15/18 08:00 Pulse Ox 98 04/15/18 08:00 Intake & Output 04/14/18 04/15/18 04/15/18 18:59 06:59 18:59 Intake Total 564.09 222 562 Output Total 350 375 Balance 214.09 -153 562 Weight 85.8 kg Intake: Intake, IV Titration 206.09 Amount Amiodarone 450 mg In 206.09 Dextrose 5% in Water 250 ml @ 1 MG/MIN 33.33 mls/ hr IV .Q7H31M [facility] Rx#: [id number] Oral 358 222 562 Output: Urine 350 375 Other: Voiding Method Indwelling Catheter Indwelling Catheter - Exam No acute distress, oriented 3. The patient does not require any supplemental oxygen at this time. HEENT examination is grossly unremarkable. Mucous membranes are moist. No oral lesions. Neck supple. Full range of motion. No adenopathy thyromegaly or neck vein distention. Cardiovascular examination reveals regular rhythm rate. S1-S2 normal. No S3 or S4. No discernible murmur noted. Lungs reveal mostly clear breath sounds. There are a few scattered rhonchi. No wheezes or crackles. Breath sounds are diminished in the left lower lobe. Abdomen soft bowel sounds are heard. No masses or tenderness. Extremities are intact. No cyanosis clubbing or edema. Skin is without rash or lesion. Neurologic examination is brief but nonfocal. - Labs CBC & Chem 7: 04/15/18 08:24 04/15/18 08:24 Labs: Abnormal Lab Results - Last 24 Hours (Table) 04/15/18 04/15/18 Range/Units 08:24 08:24 WBC 13.5 H (3.8-10.6) k/uL RBC 4.08 L (4.30-5.90) m/uL Hgb 11.7 L (13.0-17.5) gm/dL Hct 34.9 L (39.0-53.0) % Plt Count 517 H (150-450) k/uL Neutrophils # 9.3 H (1.3-7.7) k/uL Eosinophils # 1.9 H (0-0.7) k/uL Sodium 134 L (137-145) mmol/L Potassium 5.7 H (3.5-5.1) mmol/L Chloride 97 L (98-107) mmol/L BUN 25 H (9-20) mg/dL Assessment and Plan Assessment: Assessment Status post left upper lobectomy for left upper lobe mass, postop day #4 Mild asthmatic bronchitis History of Anand's esophagus History of benign essential hypertension Severe scoliosis Remote tobacco use Family history of lung cancer New onset atrial fibrillation History of postoperative pneumothorax History of postoperative urinary retention Plan: Plan dated 04/15/2018 Chest x-ray is reviewed. We did recommend hourly use of incentive spirometer and either manually or mechanical chest physiotherapy to the left lower lobe. White count of 13.5, hemoglobin 11.7, hematocrit 34.9 and platelet count is 517, 000. Sodium 134 potassium 5.7 chloride is 97 CO2 25 with a BUN of 25 and a creatinine of 1.15. Medications labs and x-rays are all reviewed. Prognosis is guarded. Additional recommendations and suggestions are forthcoming. We see my orders above. The patient remains on updrafts as well. Time with Patient: Less than 30
--- NOTE | 2018-04-15 14:43 | P.PN ---
Subjective Progress Note Date: 04/15/18 Principal diagnosis: Left upper lobe mass consistent with carcinoma, chronic obstructive pulmonary disease, GERD, hypertension, hyperlipidemia, history of depression, history of remote tobacco dependence smoking in 2010 and history of scoliosis. POD #4 robotic-assisted thoracoscopic left upper lobectomy with mediastinal lymph node dissection. Postoperative urinary retention requiring reinitiation of his Rai catheter, an unexpected outcome. Postoperative paroxysmal atrial fibrillation, an unexpected outcome. The patient is currently lying in bed on the 3 S. unit. He is in no acute distress. He denies any complaints of pain at this time. No further complaints of constipation, he had a bowel movement yesterday. Oxygen saturations are 97% on 3 L nasal cannula. He is achieving 750 in all -1000 mL mL on his incentive spirometry. No further episodes of atrial fibrillation, remote telemetry currently showing normal sinus rhythm heart rate 87. Bedside transthoracic echocardiogram being performed at this time. He is complaining of wheezing and some episodes of shortness of breath this morning. Rai catheter remains in place due to some urinary retention. Objective - Vital Signs Vital signs: Vital Signs Temp 97.7 F 04/14/18 20:00 Pulse 100 04/15/18 08:59 Resp 20 04/15/18 04:00 BP 131/75 04/15/18 04:00 Pulse Ox 97 04/15/18 04:00 Intake & Output 04/14/18 04/15/18 04/15/18 18:59 06:59 18:59 Intake Total 564.09 222 240 Output Total 350 375 Balance 214.09 -153 240 Weight 85.8 kg Intake: Intake, IV Titration 206.09 Amount Amiodarone 450 mg In 206.09 Dextrose 5% in Water 250 ml @ 1 MG/MIN 33.33 mls/ hr IV .Q7H31M [facility] Rx#: [id number] Oral 358 222 240 Output: Urine 350 375 Other: Voiding Method Indwelling Catheter Indwelling Catheter - Constitutional General appearance: Present: cooperative, no acute distress, obese - Respiratory Details: Lung sounds with expiratory wheezes throughout, diminished was bilateral bases left greater than right. Respirations are symmetrical and nonlabored. Oxygen saturation are 97% on 3 L nasal cannula. Achieving 750-1000 ml on his incentive spirometry. - Cardiovascular Details: Regular rhythm and rate. S1 and S2 present, negative for S3, gallop or murmur. Remote telemetry showing normal sinus rhythm heart rate 87. Total edema present. Knee-high OTTO hose and sequential compression devices in place to his bilateral lower extremities. - Gastrointestinal Gastrointestinal Comment(s): Abdomen is soft, nontender and nondistended. Active bowel sounds all 4 abdominal quadrants. Tolerating oral intake. Bowel movement yesterday 2017. - Genitourinary Genitourinary Comment(s): Rai catheter for urinary retention. Draining clear bhaskar urine. 375 mL output in the last 8 hours. - Integumentary Integumentary Comment(s): Skin is warm and dry. No clubbing or cyanosis present. No rash or abnormal pigmentation present. Left chest incisions clean dry and approximated. No drainage or redness present. - Neurologic Neurologic: Present: CNII-XII intact - Musculoskeletal Musculoskeletal: Present: gait normal, generalized weakness, strength equal bilaterally - Psychiatric Psychiatric: Present: A&O x's 3, appropriate affect, intact judgment & insight - Allied health notes Allied health notes reviewed: nursing - Labs CBC & Chem 7: 04/14/18 04:51 04/14/18 04:51 - Imaging and Cardiology Chest x-ray: report reviewed, image reviewed Assessment and Plan (1) Mass of upper lobe of left lung Current Visit: Yes Status: Acute Code(s): R91.8 - OTHER NONSPECIFIC ABNORMAL FINDING OF LUNG FIELD SNOMED Code(s): 531086372 (2) COPD (chronic obstructive pulmonary disease) Current Visit: Yes Status: Acute Code(s): J44.9 - CHRONIC OBSTRUCTIVE PULMONARY DISEASE, UNSPECIFIED SNOMED Code(s): 87814763 (3) GERD (gastroesophageal reflux disease) Current Visit: Yes Status: Acute Code(s): K21.9 - GASTRO-ESOPHAGEAL REFLUX DISEASE WITHOUT ESOPHAGITIS SNOMED Code(s): 581953476 (4) Hypertension Current Visit: Yes Status: Acute Code(s): I10 - ESSENTIAL (PRIMARY) HYPERTENSION SNOMED Code(s): 02525860 (5) Hyperlipidemia Current Visit: Yes Status: Acute Code(s): E78.5 - HYPERLIPIDEMIA, UNSPECIFIED SNOMED Code(s): 54999183 (6) History of depression Current Visit: Yes Status: Acute Code(s): Z86.59 - PERSONAL HISTORY OF OTHER MENTAL AND BEHAVIORAL DISORDERS SNOMED Code(s): 453231354 (7) Tobacco dependence in remission Current Visit: Yes Status: Acute Code(s): F17.201 - NICOTINE DEPENDENCE, UNSPECIFIED, IN REMISSION SNOMED Code(s): 360030632 (8) Scoliosis Current Visit: Yes Status: Acute Code(s): M41.9 - SCOLIOSIS, UNSPECIFIED SNOMED Code(s): 292588922 Plan: 1. Continue aspirin, statin, Cozaar, beta brenda and subcu heparin. 2. Encourage use of his incentive spirometry every hour while awake. Wean oxygen as tolerated to keep oxygen saturations greater than 92%. 3. Continue amiodarone for atrial fibrillation prophylaxis. 4. Monitor daily labs and chest x-rays. 5. Pain control per current regimen. 6. Increase activity as tolerated, out of bed for all meals. Physical therapy following. 7. Continue GI prophylaxis, Pepcid and DVT prophylaxis subcu heparin and SCDs. 8. Bronchodilators and pulmonary management per pulmonology recommendations. 9. Pathology results pending. 10. Discontinue Rai catheter today. Continue Flomax 0.4 mg by mouth daily. 11. Cardiology consult noted and appreciated. 2-D echocardiogram results pending. 12. More recommendations to follow based on patient's clinical course. Time with Patient: Greater than 30
[2018-04-15] MEDS: METOPROLOL TARTRATE 50 MG TAB PO SCH (20:54)
[2018-04-15] MEDS: MELATONIN 5 MG TABLET PO SCH (20:54)
[2018-04-16] MEDS: METOCLOPRAMIDE 5 MG/ML 2 ML VIAL IVP SCH ×3 (06:46→15:21)
[2018-04-16 08:10] LABS: Basophils % (A) 0 %; Eosinophils # (A) 1.6 k/uL (0-0.7); Eosinophils % (A) 13 %; HCT 35.4 % (39.0-53.0); HGB 11.9 gm/dL (13.0-17.5); Lymphocytes # (A) 1.4 k/uL (1.0-4.8); Lymphocytes % (A) 12 %; MCH 29.4 pg (25.0-35.0); MCHC 33.6 g/dL (31.0-37.0); MCV 87.5 fL (80.0-100.0); Mean Platelet Volume 6.5; Monocytes # (A) 0.9 k/uL (0-1.0); Monocytes % (A) 7 %; Neutrophils # (A) 7.6 k/uL (1.3-7.7); Neutrophils % (A) 65 %; Platelet Count 580 k/uL (150-450); RBC 4.05 m/uL (4.30-5.90); RDW 12.7 % (11.5-15.5); WBC 11.7 k/uL (3.8-10.6)
[2018-04-16] MEDS: IPRATROPIUM-ALBUTEROL 3 ML NEB IH SCH ×4 (08:25→21:01)
--- NOTE | 2018-04-16 08:37 | XR ---
EXAMINATION TYPE: XR chest 1V portable DATE OF EXAM: 04/16/2018 COMPARISON: 04/15/2018 HISTORY: Postsurgical changes TECHNIQUE: Single frontal view of the chest is obtained. FINDINGS: Volume loss on the left compatible with previous surgery with areas of infiltrate at the l eft lung base. Coarsened interstitium noted. Subsegmental consolidation on the right. Heart size stab le. Atherosclerotic change aorta. Marked scoliosis noted. IMPRESSION: 1. Bilateral areas of atelectasis or infiltrate. 2. Interstitium is somewhat increased relative to the prior exam correlate for developing interstitia l venous congestion or pneumonitis.
[2018-04-16 08:47] LABS: Potassium 4.7 mmol/L (3.5-5.1)
[2018-04-16] MEDS: HEPARIN SODIUM,PORCINE 5,000 UNIT/ML 1 ML VIAL SQ SCH ×2 (09:43→15:22)
[2018-04-16] MEDS: ATORVASTATIN 40 MG TAB PO SCH (09:43)
[2018-04-16] MEDS: AMIODARONE 200 MG TAB PO SCH ×2 (09:43→20:47)
[2018-04-16] MEDS: FAMOTIDINE 20 MG TAB PO SCH (09:43)
[2018-04-16] MEDS: ASPIRIN 325 MG TAB PO SCH (09:43)
[2018-04-16] MEDS: HYDROCHLOROTHIAZIDE 12.5 MG CAP PO SCH (09:44)
[2018-04-16] MEDS: LOSARTAN 50 MG TAB PO SCH (09:44)
[2018-04-16] MEDS: LACTOBACILLUS ACIDOPH & BULGAR 1 EACH PACKET PO SCH (09:44)
[2018-04-16] MEDS: SENNOSIDES-DOCUSATE SODIUM 1 EACH TAB PO SCH (09:46)
[2018-04-16] MEDS: MONTELUKAST 10 MG TAB PO SCH (09:46)
[2018-04-16] MEDS: METOPROLOL TARTRATE 50 MG TAB PO SCH ×2 (09:46→20:47)
[2018-04-16] MEDS: TAMSULOSIN 0.4 MG CAP.ER.24H PO SCH (09:47)
--- NOTE | 2018-04-16 11:10 | P.PN ---
Subjective Progress Note Date: 04/16/18 Principal diagnosis: Lung mass Progress note dated 04/15/2018 77-year-old male postop day #4, status post left upper lobectomy for a lung mass. In addition, he has a history of mild asthmatic bronchitis Anand's esophagus benign essential hypertension severe scoliosis remote tobacco use family history of lung cancer, new onset atrial fibrillation postoperative pneumothorax and postoperative urinary retention. In my opinion, the chest x- ray shows some loss of lung volume in the left lower lobe versus atelectasis/ infiltrate. The patient is doing very poorly on his incentive spirometer. He can only get 250. The patient needs to continue working on that every hour. In addition, we are going to have respiratory therapist do manual or mechanical chest physiotherapy to the left lower lobe. Currently, the patient is stable. He is not requiring any supplemental oxygen. The patient does not have any pain. Discharge as per cardiothoracic surgery. As of this morning, pathology still pending. Progress note dated 04/16/2018 77-year-old male, postop day #5, status post left upper lobectomy for a lung mass. The patient has a history of mild asthmatic bronchitis, Anand's esophagus, benign essential hypertension, severe scoliosis, remote tobacco use, family history of lung cancer and new onset atrial fibrillation postoperatively. In addition, the patient has a history of a pneumothorax and postoperative urinary retention. We saw him yesterday and he seemed relatively comfortable. Apparently more recently, he is becoming more short of breath with significant chest tightness wheezing and cough. Today when I went into the room, the patient was very agitated. He wanted to be discharged home. On examination was quite bronchospastic. I added Pulmicort 1 mg twice a day mixed with performance twice a day and Solu-Medrol IV. We spoke to the cardiothoracic nurse practitioner. We recommended that the patient stay at least another day. He was going to go and speak to the patient. The patient's is nervous about him coming home to early. He apparently has had agitation before and was angry with the cardiothoracic surgeon. Objective - Vital Signs Vital signs: Vital Signs Temp 97.5 F L 04/16/18 08:40 Pulse 100 04/16/18 08:46 Resp 20 04/16/18 08:40 BP 119/76 04/16/18 08:40 Pulse Ox 94 L 04/16/18 08:40 Intake & Output 04/15/18 04/16/18 04/16/18 18:59 06:59 18:59 Intake Total 562 840 Output Total 400 Balance 562 440 Weight 85.3 kg Intake: Oral 562 840 Output: Urine 400 Other: Voiding Method Indwelling Catheter Indwelling Catheter Indwelling Catheter # Voids 2 - Exam No acute distress, oriented 3. The patient does not require any supplemental oxygen at this time. HEENT examination is grossly unremarkable. Mucous membranes are moist. No oral lesions. Neck supple. Full range of motion. No adenopathy thyromegaly or neck vein distention. Cardiovascular examination reveals regular rhythm rate. S1-S2 normal. No S3 or S4. No discernible murmur noted. Lungs reveal diffuse bilateral inspiratory and expiratory wheezes and rhonchi. The patient is quite bronchospastic. There is prolongation on forced maneuver. Breath sounds are diminished throughout. No crackles. Breath sounds are equal bilaterally. Abdomen soft bowel sounds are heard. No masses or tenderness. Extremities are intact. No cyanosis clubbing or edema. Skin is without rash or lesion. Neurologic examination is brief but nonfocal. - Labs CBC & Chem 7: 04/16/18 07:53 04/16/18 07:53 Labs: Abnormal Lab Results - Last 24 Hours (Table) 04/16/18 04/16/18 Range/Units 07:53 07:53 WBC 11.7 H (3.8-10.6) k/uL RBC 4.05 L (4.30-5.90) m/uL Hgb 11.9 L (13.0-17.5) gm/dL Hct 35.4 L (39.0-53.0) % Plt Count 580 H (150-450) k/uL Eosinophils # 1.6 H (0-0.7) k/uL Sodium 131 L (137-145) mmol/L Chloride 96 L (98-107) mmol/L BUN 25 H (9-20) mg/dL Glucose 105 H (74-99) mg/dL Assessment and Plan Assessment: Assessment Status post left upper lobectomy for left upper lobe mass, postop day #5 Significant postoperative bronchospasm with reactive bronchial inflammation, beginning April 16. Mild asthmatic bronchitis History of Anand's esophagus History of benign essential hypertension Severe scoliosis Remote tobacco use Family history of lung cancer New onset atrial fibrillation History of postoperative pneumothorax History of postoperative urinary retention Plan: Plan dated 04/15/2018 Chest x-ray is reviewed. We did recommend hourly use of incentive spirometer and either manually or mechanical chest physiotherapy to the left lower lobe. White count of 13.5, hemoglobin 11.7, hematocrit 34.9 and platelet count is 517, 000. Sodium 134 potassium 5.7 chloride is 97 CO2 25 with a BUN of 25 and a creatinine of 1.15. Medications labs and x-rays are all reviewed. Prognosis is guarded. Additional recommendations and suggestions are forthcoming. We see my orders above. The patient remains on [facility] as well. Plan dated 04/16/2018 We recommend the patient not be discharged from the hospital. We had IV Solu- Medrol Pulmicort 1 mg twice a day mixed with performance twice a day. We recommended the patient continue using incentive spirometry and continue with mechanical chest physiotherapy to the left lower lobe. The patient's very agitated. He wanted to be discharged home. The cardiothoracic nurse practitioner wanted to speak to the patient. The is concerned that if the patient comes home, she will not be able to handle him. He was very unreasonable today. White count 11.7, hemoglobin 11.9, hematocrit 35.4 and platelet count 580,000. Sodium 141 potassium 4.7 chloride is 96 CO2 22 anion gap 13 BUN 25 and creatinine 1.10. Yesterday, we were concerned about the changes in the left lower lobe. Time with Patient: Less than 30
[2018-04-16] MEDS: methylPREDNISolone SOD SUCCI 125 MG/2 ML VIAL IV SCH ×2 (11:34→15:21)
--- NOTE | 2018-04-16 14:20 | P.PN ---
Subjective Progress Note Date: 04/16/18 Subtle pleasant 77-year-old gentleman who follows with Dr. Tran in the office. Has past medical history significant for hypertension, and dyslipidemia. Was initially admitted to the hospital and underwent a robotic- assisted thoracoscopic right upper lobectomy with mediastinal lymph node dissection. This procedure was done on 04/11/2018 and was uneventful. Procedure was performed for carcinoma in the lung which was diagnosed recently. See the patient in consultation due to an episode of racing and fluttering with tachycardia on telemetry. 12-lead EKG showed atrial fibrillation with rapid ventricular response and the patient was started on IV amiodarone. He subsequently converted to sinus rhythm and has been maintaining sinus rhythm. Paroxysmal atrial fibrillation is new to the patient. He denies having any chest discomfort or pain, dizziness, lightheadedness. He did feel when his heart was racing. And he does have COPD and shortness of breath is at his baseline. The patient did undergo a heart catheterization earlier this month that revealed mild triple-vessel CAD. Echocardiogram shows normal LV systolic function with an ejection fraction between 55-60% with no significant valvular abnormalities. On examination today. Patient complains of some significant shortness of breath with activity and wheezing. Audible wheezing heard upon entering the room. Pulmonology has added Pulmicort and IV Solu-Medrol. Objective - Vital Signs Vital signs: Vital Signs Temp 97.6 F 04/16/18 12:00 Pulse 92 04/16/18 12:20 Resp 20 04/16/18 12:00 BP 143/78 04/16/18 12:00 Pulse Ox 96 04/16/18 12:00 Intake & Output 04/15/18 04/16/18 04/16/18 18:59 06:59 18:59 Intake Total 562 840 Output Total 400 300 Balance 562 440 -300 Weight 85.3 kg Intake: Oral 562 840 Output: Urine 400 300 Other: Voiding Method Indwelling Catheter Indwelling Catheter Indwelling Catheter # Voids 2 - Exam PHYSICAL EXAMINATION: HEENT: Head is atraumatic, normocephalic. Pupils equal, round. Neck is supple. There is no elevated jugular venous pressure. HEART EXAMINATION: Heart sounds regular, S1 and S2 with systolic murmur. CHEST EXAMINATION: Lungs infiltrate as per wheezing noted throughout left greater than right. No chest wall tenderness is noted on palpation or with deep breathing. ABDOMEN: Soft, nontender. Bowel sounds are heard. No organomegaly noted. EXTREMITIES: 2+ peripheral pulses with no evidence of peripheral edema and no calf tenderness noted. NEUROLOGIC patient is awake, alert and oriented x3. . - Labs CBC & Chem 7: 04/16/18 07:53 04/16/18 07:53 Labs: Abnormal Lab Results - Last 24 Hours (Table) 04/16/18 04/16/18 Range/Units 07:53 07:53 WBC 11.7 H (3.8-10.6) k/uL RBC 4.05 L (4.30-5.90) m/uL Hgb 11.9 L (13.0-17.5) gm/dL Hct 35.4 L (39.0-53.0) % Plt Count 580 H (150-450) k/uL Eosinophils # 1.6 H (0-0.7) k/uL Sodium 131 L (137-145) mmol/L Chloride 96 L (98-107) mmol/L BUN 25 H (9-20) mg/dL Glucose 105 H (74-99) mg/dL Assessment and Plan Assessment: #1 status post robotic-assisted thorascopic right upper lobectomy for carcinoma #2 known COPD #3 paroxysmal atrial fibrillation with rapid ventricular response, maintaining sinus rhythm #4 mild CAD based on heart catheterization which was performed recently #5 hypertension Plan: From Student Union Consultant perspective, continue current medications. Consider oral anticoagulation once the patient is safe from a surgical standpoint. We'll continue to follow patient prior to further recommendations accordingly. [employer] note has been reviewed, I agree with a documented findings and plan of care. Patient was seen and examined.
--- NOTE | 2018-04-16 16:39 | P.PN ---
Subjective Progress Note Date: 04/16/18 Principal diagnosis: Left upper lobe mass consistent with carcinoma, chronic obstructive pulmonary disease, GERD, hypertension, hyperlipidemia, history of depression, history of remote tobacco dependence smoking in 2010 and history of scoliosis. POD #5 robotic-assisted thoracoscopic left upper lobectomy with mediastinal lymph node dissection. Postoperative urinary retention requiring reinitiation of his Rai catheter, an unexpected outcome. Postoperative paroxysmal atrial fibrillation, an unexpected outcome. The patient is currently sitting up to the bedside chair on the 3 S. unit. He is in no acute distress. He denies any complaints of pain at this time. Oxygen saturations are 95% on room air while he is over. He is achieving 500 mL on his incentive spirometry. No further episodes of atrial fibrillation, remote telemetry currently showing normal sinus rhythm heart rate 82. He is complaining of increase in his wheezing and some episodes of shortness of breath this morning. Rai catheter was reinitiated last evening due to urinary retention. The patient is somewhat agitated and anxious this morning, he is arguing with his at his bedside and is wanting to go home. His pathology results are currently pending. He has been ambulating in the 3 S. hallway without difficulty. Objective - Vital Signs Vital signs: Vital Signs Temp 97.5 F L 04/16/18 08:40 Pulse 100 04/16/18 08:46 Resp 20 04/16/18 08:40 BP 119/76 04/16/18 08:40 Pulse Ox 94 L 04/16/18 08:40 Intake & Output 04/15/18 04/16/18 04/16/18 18:59 06:59 18:59 Intake Total 562 840 Output Total 400 Balance 562 440 Weight 85.3 kg Intake: Oral 562 840 Output: Urine 400 Other: Voiding Method Indwelling Catheter Indwelling Catheter Indwelling Catheter # Voids 2 - Constitutional General appearance: Present: cooperative, no acute distress, obese - Respiratory Details: Lung sounds are tight with expiratory wheezes throughout, diminished bilateral bases. Respirations are symmetrical and nonlabored. Oxygen saturation are 95% on room air. He is achieving 500 mL on his incentive spirometry with encouragement. - Cardiovascular Details: Regular rhythm and rate. S1 and S2 present, negative for S3, gallop or murmur. No edema present. Remote telemetry showing normal sinus with right bundle branch block rhythm heart rate 82. Knee-high OTTO hose and sequential compression devices in place to his bilateral lower extremities. - Gastrointestinal Gastrointestinal Comment(s): Abdomen is soft, nontender and nondistended. Active bowel sounds all 4 abdominal quadrants. Tolerating oral intake. No organomegaly, no guarding or rigidity. - Genitourinary Genitourinary Comment(s): Rai catheter for urinary retention. Draining clear urine with some pink tinge. 400 mL output in the last 8 hours. - Integumentary Integumentary Comment(s): Skin is warm and dry. No clubbing or cyanosis present. No rash or abnormal pigmentation present. Left chest wall incisions clean dry and approximated. No drainage or redness present. - Neurologic Neurologic: Present: CNII-XII intact - Musculoskeletal Musculoskeletal: Present: gait normal, strength equal bilaterally - Psychiatric Psychiatric Comment(s): Episodes of agitation. Psychiatric: Present: A&O x's 3, appropriate affect, intact judgment & insight - Allied health notes Allied health notes reviewed: nursing - Labs CBC & Chem 7: 04/16/18 07:53 04/16/18 07:53 Labs: Abnormal Lab Results - Last 24 Hours (Table) 04/16/18 04/16/18 Range/Units 07:53 07:53 WBC 11.7 H (3.8-10.6) k/uL RBC 4.05 L (4.30-5.90) m/uL Hgb 11.9 L (13.0-17.5) gm/dL Hct 35.4 L (39.0-53.0) % Plt Count 580 H (150-450) k/uL Eosinophils # 1.6 H (0-0.7) k/uL Sodium 131 L (137-145) mmol/L Chloride 96 L (98-107) mmol/L BUN 25 H (9-20) mg/dL Glucose 105 H (74-99) mg/dL - Imaging and Cardiology Chest x-ray: report reviewed, image reviewed Assessment and Plan (1) Mass of upper lobe of left lung Current Visit: Yes Status: Acute Code(s): R91.8 - OTHER NONSPECIFIC ABNORMAL FINDING OF LUNG FIELD SNOMED Code(s): 641547920 (2) COPD (chronic obstructive pulmonary disease) Current Visit: Yes Status: Acute Code(s): J44.9 - CHRONIC OBSTRUCTIVE PULMONARY DISEASE, UNSPECIFIED SNOMED Code(s): 77504519 (3) GERD (gastroesophageal reflux disease) Current Visit: Yes Status: Acute Code(s): K21.9 - GASTRO-ESOPHAGEAL REFLUX DISEASE WITHOUT ESOPHAGITIS SNOMED Code(s): 237729344 (4) Hypertension Current Visit: Yes Status: Acute Code(s): I10 - ESSENTIAL (PRIMARY) HYPERTENSION SNOMED Code(s): 96127640 (5) Hyperlipidemia Current Visit: Yes Status: Acute Code(s): E78.5 - HYPERLIPIDEMIA, UNSPECIFIED SNOMED Code(s): 38969926 (6) History of depression Current Visit: Yes Status: Acute Code(s): Z86.59 - PERSONAL HISTORY OF OTHER MENTAL AND BEHAVIORAL DISORDERS SNOMED Code(s): 168138343 (7) Tobacco dependence in remission Current Visit: Yes Status: Acute Code(s): F17.201 - NICOTINE DEPENDENCE, UNSPECIFIED, IN REMISSION SNOMED Code(s): 559968371 (8) Scoliosis Current Visit: Yes Status: Acute Code(s): M41.9 - SCOLIOSIS, UNSPECIFIED SNOMED Code(s): 283427807 Plan: 1. Continue aspirin, statin, Cozaar, beta brenda and subcu heparin. Metoprolol tartrate was increased to 50 mg by mouth twice a day yesterday 2017. 2. Encourage use of his incentive spirometry every hour while awake. 3. Continue amiodarone for atrial fibrillation prophylaxis. 4. Monitor daily labs and chest x-rays. 5. Pain control per current regimen. 6. Increase activity as tolerated, out of bed for all meals. Physical therapy following. 7. Continue GI prophylaxis, Pepcid and DVT prophylaxis subcu heparin and SCDs. 8. Bronchodilators and pulmonary management per pulmonology recommendations. Patient was started on Solu-Medrol 60 mg IV every 6 hours, Perforomist 20 g twice a day, and Pulmicort 1 mg twice a day per pulmonary recommendations. 9. Pathology results remain pending. 10. Continue Rai catheter today. Continue Flomax 0.4 mg by mouth daily. Urology consulted for urinary retention. 11. More recommendations to follow based on patient's clinical course. Time with Patient: Greater than 30
[2018-04-16] MEDS ORDERED: ALPRAZolam 0.25 MG TAB PO PRN (20:37)
[2018-04-16] MEDS: MELATONIN 5 MG TABLET PO SCH (20:47)
[2018-04-16 21:00] LABS: Glucose,Whole Blood 147 mg/dL (75-99)
[2018-04-16] MEDS: BUDESONIDE 1 MG/2 ML NEBU INHALATION SCH (21:01)
[2018-04-16] MEDS: FORMOTEROL FUMARATE 20 MCG/2 ML NEBU INHALATION SCH (21:01)
[2018-04-16] MEDS: INSULIN ASPART 100 UNIT/ML 1 ML 10 ML VIAL SQ SCH (21:36)
[2018-04-17] MEDS: methylPREDNISolone SOD SUCCI 125 MG/2 ML VIAL IV SCH ×3 (00:19→12:20)
[2018-04-17] MEDS: HEPARIN SODIUM,PORCINE 5,000 UNIT/ML 1 ML VIAL SQ SCH ×2 (00:19→07:52)
[2018-04-17] MEDS: METOCLOPRAMIDE 5 MG/ML 2 ML VIAL IVP SCH ×3 (00:20→12:20)
[2018-04-17] MEDS: INSULIN ASPART 100 UNIT/ML 1 ML 10 ML VIAL SQ SCH ×2 (06:44→12:21)
[2018-04-17 06:45] LABS: Glucose,Whole Blood 130 mg/dL (75-99)
[2018-04-17] MEDS: IPRATROPIUM-ALBUTEROL 3 ML NEB IH SCH ×2 (07:07→11:27)
[2018-04-17] MEDS: FORMOTEROL FUMARATE 20 MCG/2 ML NEBU INHALATION SCH (07:07)
[2018-04-17] MEDS: BUDESONIDE 1 MG/2 ML NEBU INHALATION SCH (07:07)
--- NOTE | 2018-04-17 07:32 | XR ---
EXAMINATION TYPE: XR chest 1V portable DATE OF EXAM: 04/17/2018 COMPARISON: Prior chest x-ray 04/16/2018 HISTORY: Status post left upper lobectomy TECHNIQUE: Single frontal view of the chest is obtained. FINDINGS: Volume loss in the left hemithorax persists. There may be some atelectatic changes in the left hemithorax. No evident pneumothorax or pleural effusion. Marked scoliosis is noted, heart size f elt likely to be stable. IMPRESSION: Postop findings, possible atelectasis, correlate to exclude pneumonia. Follow-up recomme nded.
[2018-04-17] MEDS: ASPIRIN 325 MG TAB PO SCH (07:52)
[2018-04-17] MEDS: AMIODARONE 200 MG TAB PO SCH (07:52)
[2018-04-17] MEDS: TAMSULOSIN 0.4 MG CAP.ER.24H PO SCH (07:52)
[2018-04-17] MEDS: MONTELUKAST 10 MG TAB PO SCH (07:52)
[2018-04-17] MEDS: HYDROCHLOROTHIAZIDE 12.5 MG CAP PO SCH (07:52)
[2018-04-17] MEDS: ATORVASTATIN 40 MG TAB PO SCH (07:53)
[2018-04-17] MEDS: METOPROLOL TARTRATE 50 MG TAB PO SCH (07:53)
[2018-04-17] MEDS: SENNOSIDES-DOCUSATE SODIUM 1 EACH TAB PO SCH (07:53)
[2018-04-17] MEDS: FAMOTIDINE 20 MG TAB PO SCH (07:53)
[2018-04-17] MEDS: LOSARTAN 50 MG TAB PO SCH (07:53)
[2018-04-17] MEDS: LACTOBACILLUS ACIDOPH & BULGAR 1 EACH PACKET PO SCH ×2 (07:53→08:03)
--- NOTE | 2018-04-17 09:32 | P.PN ---
Subjective Progress Note Date: 04/17/18 Principal diagnosis: Left upper lobe mass consistent with carcinoma, COPD, GERD, hypertension, hyperlipidemia, history of depression, previous tobacco dependence, and history of scoliosis. POD #6 robotic assisted thoracoscopic left upper lobectomy with mediastinal lymph node dissection. Postoperative urinary retention requiring reinitiation of his Rai, an unexpected outcome. Postoperative paroxysmal atrial fibrillation, an unexpected outcome. The patient's currently sitting up in the chair in no acute distress. He denies any pain. He does still have some shortness of breath with wheezing. Denies much of an appetite, requesting Boost. He has ambulated in the hallway. He continues to be in normal sinus rhythm. Rai catheter was reinitiated, patient reports Dr. Brink was in to see him and wants Rai catheter discontinued on Sunday with the patient to follow-up with Dr. Benson on Sunday in the office. Objective - Vital Signs Vital signs: Vital Signs Temp 96.5 F L 04/17/18 07:56 Pulse 85 04/17/18 07:56 Resp 20 04/17/18 07:56 BP 140/65 04/17/18 07:56 Pulse Ox 97 04/17/18 07:56 Intake & Output 04/16/18 04/17/18 04/17/18 18:59 06:59 18:59 Output Total 900 1475 Balance -900 -1475 Weight 81.3 kg Output: Urine 900 1475 Other: Voiding Method Indwelling Catheter Indwelling Catheter Indwelling Catheter # Voids 3 - Constitutional General appearance: Present: cooperative, no acute distress - Respiratory Details: Lungs sounds diminished bilaterally with faint expiratory wheezes present. Respirations even, nonlabored. Currently on 2 L nasal cannula with oxygen saturation 97%. Able to achieve 750 mL on his incentive spirometry. Strong cough. - Cardiovascular Details: S1, S2 present. Regular rate and rhythm, sinus rhythm on telemetry. Palpable peripheral pulses bilaterally. No edema present. No calf pain or tenderness noted. SCDs present. - Gastrointestinal Gastrointestinal Comment(s): Abdomen soft, nontender, nondistended. Active bowel sounds 4 quadrants. Tolerating diet although minimally. Last bowel movement 04/14. - Genitourinary Genitourinary Comment(s): Rai present draining clear, yellow urine. Output overnight 1000 mL. - Integumentary Integumentary Comment(s): Skin is warm and dry with evidence of good perfusion. Left lateral wall chest incisions well approximated and covered with dry intact dressing. - Neurologic Neurologic: Present: CNII-XII intact - Musculoskeletal Musculoskeletal: Present: gait normal, strength equal bilaterally - Psychiatric Psychiatric: Present: A&O x's 3, appropriate affect, intact judgment & insight - Allied health notes Allied health notes reviewed: nursing - Labs CBC & Chem 7: 04/17/18 06:42 04/17/18 06:42 Labs: Abnormal Lab Results - Last 24 Hours (Table) 04/16/18 04/17/18 Range/Units 20:59 06:43 POC Glucose (mg/dL) 147 H 130 H (75-99) mg/dL - Imaging and Cardiology Chest x-ray: report reviewed, image reviewed Assessment and Plan (1) COPD (chronic obstructive pulmonary disease) Current Visit: Yes Status: Chronic Code(s): J44.9 - CHRONIC OBSTRUCTIVE PULMONARY DISEASE, UNSPECIFIED SNOMED Code(s): 80728307 (2) GERD (gastroesophageal reflux disease) Current Visit: Yes Status: Chronic Code(s): K21.9 - GASTRO-ESOPHAGEAL REFLUX DISEASE WITHOUT ESOPHAGITIS SNOMED Code(s): 358104814 (3) History of depression Current Visit: Yes Status: Chronic Code(s): Z86.59 - PERSONAL HISTORY OF OTHER MENTAL AND BEHAVIORAL DISORDERS SNOMED Code(s): 553166955 (4) Hyperlipidemia Current Visit: Yes Status: Chronic Code(s): E78.5 - HYPERLIPIDEMIA, UNSPECIFIED SNOMED Code(s): 37641178 (5) Hypertension Current Visit: Yes Status: Chronic Code(s): I10 - ESSENTIAL (PRIMARY) HYPERTENSION SNOMED Code(s): 75758676 (6) Mass of upper lobe of left lung Current Visit: Yes Status: Chronic Code(s): R91.8 - OTHER NONSPECIFIC ABNORMAL FINDING OF LUNG FIELD SNOMED Code(s): 331613955 (7) Scoliosis Current Visit: Yes Status: Chronic Code(s): M41.9 - SCOLIOSIS, UNSPECIFIED SNOMED Code(s): 409326774 (8) Tobacco dependence in remission Current Visit: No Status: Resolved Code(s): F17.201 - NICOTINE DEPENDENCE, UNSPECIFIED, IN REMISSION SNOMED Code(s): 931931965 Plan: 1. Wean O2 as tolerated. Encourage incentive spirometry use 10 times every hour while awake. 2. Bronchodilators, steroids per pulmonology. 3. 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 Will defer to oncology for treatment. 4. Continue Rai catheter until Sunday per Dr. Brink recommendations. Will provide follow-up appointment with Dr. Benson on Sunday. Continue Flomax. 5. Continue aspirin, statin, Cozaar, beta brenda. Continue amiodarone for A. fib prophylaxis. No anticoagulation needed. 6. Pain control with current medication regimen. 7. Increase activity, ambulate in hallway. 8. GI prophylaxis with Pepcid, DVT prophylaxis with subcu heparin and SCDs. 9. Will discharge to home with home care later today. Time with Patient: Greater than 30
[2018-04-17 10:14] LABS: Basophils % (A) 0 %; Eosinophils % (A) 1 %; HCT 34.3 % (39.0-53.0); HGB 11.1 gm/dL (13.0-17.5); Lymphocytes # (A) 0.8 k/uL (1.0-4.8); Lymphocytes % (A) 10 %; MCH 28.5 pg (25.0-35.0); MCHC 32.3 g/dL (31.0-37.0); MCV 88.3 fL (80.0-100.0); Mean Platelet Volume 7.5; Monocytes # (A) 0.4 k/uL (0-1.0); Monocytes % (A) 5 %; Neutrophils # (A) 6.9 k/uL (1.3-7.7); Neutrophils % (A) 84 %; Platelet Count 571 k/uL (150-450); RBC 3.88 m/uL (4.30-5.90); RDW 12.6 % (11.5-15.5); WBC 8.2 k/uL (3.8-10.6)
[2018-04-17 10:29] LABS: Albumin 3.3 g/dL (3.5-5.0); Calcium 8.8 mg/dL (8.4-10.2); Potassium 4.9 mmol/L (3.5-5.1); Total Bilirubin 0.5 mg/dL (0.2-1.3)
[2018-04-17 11:32] VITALS: BP 112/56; RESP 18; TEMP 97.4
[2018-04-17 11:43] LABS: Glucose,Whole Blood 135 mg/dL (75-99)
[2018-04-17 11:51] VITALS: PULSE 92
[2018-04-17] MEDS ORDERED: FUROSEMIDE 10 MG/ML 2 ML VIAL IV STA (12:39)
--- NOTE | 2018-04-17 14:06 | P.DS ---
Providers Date of admission: 04/11/18 05:39 Expected date of discharge: 04/17/18 Attending physician: Inocencio Handy Consults: 04/11/18 10:57 Consult Physician Routine Consulting Provider: Carlo Schwartz Consult Reason/Comments: pulm management, post ANITRA lobectomy Do you want consulting provider notified?: Yes 04/14/18 09:22 Consult Physician Routine Consulting Provider: Priyank Luna Consult Reason/Comments: Paroxysmal Atrial fibrillation Do you want consulting provider notified?: Yes 04/16/18 10:28 Consult Physician Routine Consulting Provider: Gerardo Jasmine Consult Reason/Comments: post op urine retention, requiring reinitiation of Rai catheter. Do you want consulting provider notified?: Yes Primary care physician: Nataly You - Discharge Diagnosis(es) (1) COPD (chronic obstructive pulmonary disease) Current Visit: Yes Status: Chronic (2) GERD (gastroesophageal reflux disease) Current Visit: Yes Status: Chronic (3) History of depression Current Visit: Yes Status: Chronic (4) Hyperlipidemia Current Visit: Yes Status: Chronic (5) Hypertension Current Visit: Yes Status: Chronic (6) Mass of upper lobe of left lung Current Visit: Yes Status: Chronic (7) Scoliosis Current Visit: Yes Status: Chronic (8) Tobacco dependence in remission Current Visit: No Status: Resolved Hospital Course: FINAL DIAGNOSIS: 1. Left upper lobe mass consistent with squamous cell carcinoma 2. COPD 3. GERD 4. Hypertension 5. Hyperlipidemia 6. History of depression 7. Previous tobacco dependence 8. History of scoliosis 9. Postoperative urinary retention requiring reinitiation of Rai, an unexpected outcome 10. Postoperative paroxysmal atrial fib, an unexpected outcome PRINCIPAL PROCEDURE: 1. Robotic-assisted thoracoscopic left upper lobectomy with mediastinal lymph node dissection HISTORY OF PRESENT ILLNESS: This is a 77-year-old gentleman who follows with Dr. You on an outpatient basis. Due to his previous tobacco dependence he had a screening computed tomography scan on March 10 which demonstrated a 4 x 6 cm mass in the left upper lobe. The following day he had a CT with contrast confirming the presence of a left upper lobe mass. There was no suspicious adenopathy noted, however there were some small lymph nodes present in both the pretracheal and AP window area. He was referred to Dr. Handy for surgical evaluation. In order to prepare for surgery further workup was performed including pulmonary function test which demonstrated mild obstructive disease with an FEV1 80% of predicted and DLCO 88% of predicted, both which were consistent with the ability to tolerate pulmonary surgery. He had a PET scan with significant uptake in the left upper lobe mass but no evidence of lymph node uptake in the mediastinum or the hilum and no distant metastasis noted. In addition the patient had a Lexiscan stress test which was positive for inferior wall ischemia and subsequently was referred to cardiology associates. He underwent heart catheterization which demonstrated mild coronary artery disease which was felt to be stable for pulmonary surgery per Dr. Tran. This gentleman followed up with Dr. Handy to plan for surgery. He was recommended to undergo robotic thoracoscopic left upper lobectomy. The usual preoperative course was discussed in detail with the patient and his family, all risks and benefits were explained, all questions were answered, and consent was obtained to proceed with surgery. HOSPITAL COURSE: The patient was brought to the hospital on 04/11/2018, taken to the preoperative area, prepared in the usual fashion, and subsequently taken to the operating room where Dr. Handy performed a robotic-assisted thoracoscopic left upper lobectomy with mediastinal lymph node dissection. Upon completion of surgery the patient was extubated, and taken to the recovery room where he was recovered and monitored hemodynamically. He was admitted to [address] [place] [address] for further monitoring. He did have an episode of acute urinary retention requiring reinitiation of his Rai as well as paroxysmal atrial fibrillation which converted with initiation of amiodarone and Lopressor. He also had some bronchospasm thought to be the result of the initiation of amiodarone and Lopressor which was treated with IV steroids. His oxygen was titrated down, he continued to work with physical therapy, he was tolerating oral diet, his pain was controlled, and he was ready to be discharged to home with [facility] on postoperative day #6. He received written and verbal instruction regarding his medications, activity restrictions, signs and symptoms requiring physician notification, and follow-up appointments. In addition he received received instructions regarding care of and removal of his Rai catheter per urology. COMPLICATIONS: The patient experienced postoperative urinary retention and paroxysmal atrial fibrillation which was treated accordingly. Patient Condition at Discharge: Stable Plan - Discharge Summary Discharge Rx Participant: No New Discharge Prescriptions: New Tamsulosin [Flomax] 0.4 mg PO DAILY #30 cap Acetaminophen Tab [Tylenol] 650 mg PO Q4HR PRN tab PRN Reason: Fever and/ or Mild Pain Albuterol Inhaler [Ventolin Hfa Inhaler] 1 - 2 puff INHALATION RT-Q6H PRN #1 inhaler PRN Reason: Shortness Of Breath Or Wheezing Amiodarone [Cordarone] 200 mg PO BID #30 tab methylPREDNISolone Dose Pack [Medrol Dose Pack] 4 mg PO DIRECTED #21 package Metoprolol Tartrate [Lopressor] 25 mg PO BID #60 tablet Continue Glucosamine Sulfate 500 mg PO DAILY Aspirin 325 mg PO DAILY Aclidinium [place] [Tudorza Pressair] 400 mcg PO BID Montelukast Sodium [Singulair] 10 mg PO DAILY Losartan/Hydrochlorothiazide [Losartan-Hctz 100-12.5 mg Tab] 1 tab PO DAILY Famotidine [Pepcid] 40 mg PO DAILY Atorvastatin [Lipitor] 40 mg PO DAILY L.acidoph,Paracasei, B.lactis [Probiotic] 1 cap PO DAILY Discharge Medication List Aclidinium [place] [Tudorza Pressair] 400 mcg PO BID 04/02/18 [History] Aspirin 325 mg PO DAILY 04/02/18 [History] Atorvastatin [Lipitor] 40 mg PO DAILY 04/02/18 [History] Famotidine [Pepcid] 40 mg PO DAILY 04/02/18 [History] Glucosamine Sulfate 500 mg PO DAILY 04/02/18 [History] L.acidoph,Paracasei, B.lactis [Probiotic] 1 cap PO DAILY 04/02/18 [History] Losartan/Hydrochlorothiazide [Losartan-Hctz 100-12.5 mg Tab] 1 tab PO DAILY 08/19 [History] Montelukast Sodium [Singulair] 10 mg PO DAILY 04/02/18 [History] Tamsulosin [Flomax] 0.4 mg PO DAILY #30 cap 04/16/18 [Rx] Acetaminophen Tab [Tylenol] 650 mg PO Q4HR PRN tab 04/17/18 [Rx] Albuterol Inhaler [Ventolin Hfa Inhaler] 1 - 2 puff INHALATION RT-Q6H PRN #1 inhaler 04/17/18 [Rx] Amiodarone [Cordarone] 200 mg PO BID #30 tab 04/17/18 [Rx] Metoprolol Tartrate [Lopressor] 25 mg PO BID #60 tablet 04/17/18 [Rx] methylPREDNISolone Dose Pack [Medrol Dose Pack] 4 mg PO DIRECTED #21 package 04/17/18 [Rx] Follow up Appointment(s)/Referral(s): Carlo Schwartz MD [STAFF PHYSICIAN] - 04/22/18 10:45 am Nataly You MD [Primary Care Provider] - 04/22/18 2:00 pm Inocencio Handy MD [STAFF PHYSICIAN] - 04/25/18 1:00 pm [facility], [NON-STAFF] - Gerardo Jasmine MD [STAFF PHYSICIAN] - 04/22/18 (Dr. Jasmine's office will call with appointment time) Patient Instructions/Handouts: Lung Lobectomy (DC) Activity/Diet/Wound Care/Special Instructions: Discharge home with Rai catheter. Instruct patient to remove catheter at bedtime on 04/21/2018. DISCHARGE INSTRUCTIONS: 1. No driving for 2 weeks, or until physician gives their ok. 2. No lifting, pushing, or pulling more than 10 pounds for 2 weeks. The physician will advise of any restriction changes. 3. Continue pain control per as needed orders. 4. Continue with incentive spirometry and splinting until otherwise directed by the physician. 5. May shower daily using liquid antibacterial soap. 6. Routine incision care. No powders, lotions, ointments on incisions. 7. Please call surgeon/TAXICAB STARTER for temp greater than 101 F or purulent drainage from incisions. HOME HEALTH SERVICES TO PROVIDE: MEDICATION RECONCILIATION WITH EDUCATION NEEDED ON FIRST HOME VISIT ENCOURAGE USE OF INCENTIVE SPIROMETER 10 X EVERY HOUR WHILE AWAKE FREQUENCY: RN TO OPEN THE PATIENT WITHIN 24 HOURS OF DISCHARGE FROM THE HOSPITAL WITH TELEHEALTH INSTALLED AT [facility] [place], RN TO VISIT 2-3 X A WEEK FOR 4 WEEKS ESTABLISHED BY PATIENT NEEDS. Discharge Disposition: HOME WITH HOME HEALTH SERVICES
--- NOTE | 2018-04-17 14:38 | P.PN ---
Subjective Progress Note Date: 04/17/18 Principal diagnosis: Left upper lobe mass, status post left upper lobectomy, postop day #6 Progress note dated 04/15/2018 77-year-old male postop day #4, status post left upper lobectomy for a lung mass. In addition, he has a history of mild asthmatic bronchitis Anand's esophagus benign essential hypertension severe scoliosis remote tobacco use family history of lung cancer, new onset atrial fibrillation postoperative pneumothorax and postoperative urinary retention. In my opinion, the chest x- ray shows some loss of lung volume in the left lower lobe versus atelectasis/ infiltrate. The patient is doing very poorly on his incentive spirometer. He can only get 250. The patient needs to continue working on that every hour. In addition, we are going to have respiratory therapist do manual or mechanical chest physiotherapy to the left lower lobe. Currently, the patient is stable. He is not requiring any supplemental oxygen. The patient does not have any pain. Discharge as per cardiothoracic surgery. As of this morning, pathology still pending. Progress note dated 04/16/2018 77-year-old male, postop day #5, status post left upper lobectomy for a lung mass. The patient has a history of mild asthmatic bronchitis, Anand's esophagus, benign essential hypertension, severe scoliosis, remote tobacco use, family history of lung cancer and new onset atrial fibrillation postoperatively. In addition, the patient has a history of a pneumothorax and postoperative urinary retention. We saw him yesterday and he seemed relatively comfortable. Apparently more recently, he is becoming more short of breath with significant chest tightness wheezing and cough. Today when I went into the room, the patient was very agitated. He wanted to be discharged home. On examination was quite bronchospastic. I added Pulmicort 1 mg twice a day mixed with performance twice a day and Solu-Medrol IV. We spoke to the cardiothoracic nurse practitioner. We recommended that the patient stay at least another day. He was going to go and speak to the patient. The patient's is nervous about him coming home to early. He apparently has had agitation before and was angry with the cardiothoracic surgeon. On 04/17/2018 patient seen in follow-up. Breathing much easier today, and last night patient was extremely anxious, he was given a dose of Xanax, yesterday we started patient on IV Solu-Medrol, Pulmicort, and Perforomist and on today's exam significant improvement in terms of dyspnea. Appears to be much,, and agreeable. No fever or chills, no significant chest congestion, there is only a few scattered wheezes left. At home patient is on Tudorza Pressair, Singulair. Today's chest x-ray has been reviewed, and just showed postop findings, possible atelectasis. Patient is doing well. Is tolerating ambulation. From pulmonary perspective patient is stable for discharge home today. Objective - Vital Signs Vital signs: Vital Signs Temp 97.4 F L 04/17/18 11:32 Pulse 92 04/17/18 11:40 Resp 18 04/17/18 11:32 BP 112/56 04/17/18 11:32 Pulse Ox 95 04/17/18 11:32 Intake & Output 04/16/18 04/17/18 04/17/18 18:59 06:59 18:59 Intake Total 240 Output Total 900 1475 600 Balance -900 -1475 -360 Weight 81.3 kg Intake: Oral 240 Output: Urine 900 1475 600 Other: Voiding Method Indwelling Catheter Indwelling Catheter Indwelling Catheter # Voids 3 - Exam No acute distress, oriented 3. The patient does not require any supplemental oxygen at this time. HEENT examination is grossly unremarkable. Mucous membranes are moist. No oral lesions. Neck supple. Full range of motion. No adenopathy thyromegaly or neck vein distention. Cardiovascular examination reveals regular rhythm rate. S1-S2 normal. No S3 or S4. No discernible murmur noted. Lungs reveal diffuse bilateral inspiratory and expiratory wheezes and rhonchi. The patient is quite bronchospastic. There is prolongation on forced maneuver. Breath sounds are diminished throughout. No crackles. Breath sounds are equal bilaterally. Abdomen soft bowel sounds are heard. No masses or tenderness. Extremities are intact. No cyanosis clubbing or edema. Skin is without rash or lesion. Neurologic examination is brief but nonfocal. - Labs CBC & Chem 7: 04/17/18 06:42 04/17/18 06:42 Labs: Abnormal Lab Results - Last 24 Hours (Table) 04/16/18 04/17/18 04/17/18 Range/Units 20:59 06:42 06:42 RBC 3.88 L (4.30-5.90) m/uL Hgb 11.1 L (13.0-17.5) gm/dL Hct 34.3 L (39.0-53.0) % Plt Count 571 H (150-450) k/uL Lymphocytes # 0.8 L (1.0-4.8) k/uL Sodium 133 L (137-145) mmol/L Chloride 96 L (98-107) mmol/L BUN 23 H (9-20) mg/dL Glucose 112 H (74-99) mg/dL POC Glucose (mg/dL) 147 H (75-99) mg/dL ALT 87 H (21-72) U/L Total Protein 6.0 L (6.3-8.2) g/dL Albumin 3.3 L (3.5-5.0) g/dL 04/17/18 04/17/18 Range/Units 06:43 11:32 RBC (4.30-5.90) m/uL Hgb (13.0-17.5) gm/dL Hct (39.0-53.0) % Plt Count (150-450) k/uL Lymphocytes # (1.0-4.8) k/uL Sodium (137-145) mmol/L Chloride (98-107) mmol/L BUN (9-20) mg/dL Glucose (74-99) mg/dL POC Glucose (mg/dL) 130 H 135 H (75-99) mg/dL ALT (21-72) U/L Total Protein (6.3-8.2) g/dL Albumin (3.5-5.0) g/dL Assessment and Plan Plan: Status post left upper lobectomy for left upper lobe mass, postop day #6 Significant postoperative bronchospasm with reactive bronchial inflammation, beginning April 16. Mild asthmatic bronchitis History of Anand's esophagus History of benign essential hypertension Severe scoliosis Remote tobacco use Family history of lung cancer New onset atrial fibrillation History of postoperative pneumothorax History of postoperative urinary retention Plan: Patient has significantly improved in terms of dyspnea, and wheezing. Vital signs remain stable, afebrile, he is been tolerating ambulation. He is less anxious. From pulmonary perspective patient is stable for discharge home today on prednisone taper, his maintenance Tudorza and we will add Ventolin rescue inhaler, he can continue on Singulair. Patient will see Dr. Reyes in follow- up I performed a history & physical examination of the patient and discussed their management with my nurse practitioner, Roselia Mills. I reviewed the nurse practitioner's note and agree with the documented findings and plan of care. Lung sounds are positive for limited wheezes over left upper and lower lobes, clear on the right. The findings and the impression was discussed with the patient. I attest to the documentation by the nurse practitioner. Time with Patient: Less than 30
--- NOTE | 2018-04-17 15:07 | P.PN ---
Subjective Progress Note Date: 04/17/18 This is a pleasant 77-year-old gentleman who follows with Dr. Tran in the office. He has past medical history significant for hypertension, and dyslipidemia. Was initially admitted to the hospital and underwent a robotic- assisted thoracoscopic right upper lobectomy with mediastinal lymph node dissection. This procedure was done on 04/11/2018 and was uneventful. Procedure was performed for carcinoma in the lung which was diagnosed recently. We were asked to see the patient in consultation due to an episode of racing and fluttering with tachycardia on telemetry. 12-lead EKG showed atrial fibrillation with rapid ventricular response and the patient was started on IV amiodarone. He subsequently converted to sinus rhythm and has been maintaining sinus rhythm. Paroxysmal atrial fibrillation is new to the patient. He denies having any chest discomfort or pain, dizziness, lightheadedness. He did feel when his heart was racing. And he does have COPD and shortness of breath is at his baseline. The patient did undergo a heart catheterization earlier this month that revealed mild triple-vessel CAD. Echocardiogram shows normal LV systolic function with an ejection fraction between 55-60% with no significant valvular abnormalities. Patient was seen and examined this morning, overall his breathing is much easier today. He did have an episode of anxiety through the night last night for which she was given a dose of Xanax. Anticipating discharge today. Patient did have a chest x-ray today which revealed postop findings possible atelectasis overall the patient is doing well. Blood pressure 112/60 today with a heart rate in the 70s, 95% on room air. Objective - Vital Signs Vital signs: Vital Signs Temp 97.4 F L 04/17/18 11:32 Pulse 92 04/17/18 11:40 Resp 18 04/17/18 11:32 BP 112/56 04/17/18 11:32 Pulse Ox 95 04/17/18 11:32 Intake & Output 04/16/18 04/17/18 04/17/18 18:59 06:59 18:59 Intake Total 240 Output Total 900 1475 600 Balance -900 1475 -360 Weight 81.3 kg Intake: Oral 240 Output: Urine 900 1475 600 Other: Voiding Method Indwelling Catheter Indwelling Catheter Indwelling Catheter # Voids 3 - Exam PHYSICAL EXAMINATION: HEENT: Head is atraumatic, normocephalic. Pupils equal, round. Neck is supple. There is no elevated jugular venous pressure. HEART EXAMINATION: Heart sounds regular, S1 and S2 with systolic murmur. CHEST EXAMINATION: Lungs infiltrate as per wheezing noted throughout left greater than right. No chest wall tenderness is noted on palpation or with deep breathing. ABDOMEN: Soft, nontender. Bowel sounds are heard. No organomegaly noted. EXTREMITIES: 2+ peripheral pulses with no evidence of peripheral edema and no calf tenderness noted. NEUROLOGIC patient is awake, alert and oriented x3. . - Labs CBC & Chem 7: 04/17/18 06:42 04/17/18 06:42 Labs: Abnormal Lab Results - Last 24 Hours (Table) 04/16/18 04/17/18 04/17/18 Range/Units 20:59 06:42 06:42 RBC 3.88 L (4.30-5.90) m/uL Hgb 11.1 L (13.0-17.5) gm/dL Hct 34.3 L (39.0-53.0) % Plt Count 571 H (150-450) k/uL Lymphocytes # 0.8 L (1.0-4.8) k/uL Sodium 133 L (137-145) mmol/L Chloride 96 L (98-107) mmol/L BUN 23 H (9-20) mg/dL Glucose 112 H (74-99) mg/dL POC Glucose (mg/dL) 147 H (75-99) mg/dL ALT 87 H (21-72) U/L Total Protein 6.0 L (6.3-8.2) g/dL Albumin 3.3 L (3.5-5.0) g/dL 04/17/18 04/17/18 Range/Units 06:43 11:32 RBC (4.30-5.90) m/uL Hgb (13.0-17.5) gm/dL Hct (39.0-53.0) % Plt Count (150-450) k/uL Lymphocytes # (1.0-4.8) k/uL Sodium (137-145) mmol/L Chloride (98-107) mmol/L BUN (9-20) mg/dL Glucose (74-99) mg/dL POC Glucose (mg/dL) 130 H 135 H (75-99) mg/dL ALT (21-72) U/L Total Protein (6.3-8.2) g/dL Albumin (3.5-5.0) g/dL Assessment and Plan Plan: Assessment: #1 status post robotic-assisted thorascopic right upper lobectomy for carcinoma #2 known COPD #3 paroxysmal atrial fibrillation with rapid ventricular response, maintaining sinus rhythm #4 mild CAD based on heart catheterization which was performed recently #5 hypertension Plan From cardiology's perspective, we'll continue the patient on his current medications. He will not be initiated on oral anticoagulation per surgeon's request at this time. Discharged home today DNP note has been reviewed, I agree with a documented findings and plan of care. Patient was seen and examined.
[2018-04-18] MEDS ORDERED: ASPIRIN 81 MG PO SCH (09:00)
--- NOTE | 2018-04-18 14:47 | P.GSCN ---
History of Present Illness Consult date: 04/16/18 Reason for Consult: Postoperative urinary retention Requesting physician: Shaheen Fuentes History of present illness: The patient is a 77-year-old male who underwent a left upper lobectomy for a lung mass on 04/11/2018. He has a history of mild asthmatic bronchitis, Anand 's esophagus, benign essential hypertension, scoliosis, and new onset atrial fibrillation. He has required reinsertion of a Rai catheter on 2 occasions due to postoperative urinary retention. I'm consulted for this reason. The patient has an unremarkable urologic history. Prior to admission, he states that his urinary stream is weak and he suspects that he was possibly not emptying his bladder. He denied dysuria and hematuria. He states that he voids every 3 hours day and night. He denies any prior history of UTIs or urolithiasis. He has seen Dr. Jasmine in the remote past. Review of Systems - Constitutional Denies chills, Denies fever - Cardiovascular Reports dyspnea on exertion, Denies chest pain - Gastrointestinal Denies constipation, Denies nausea, Denies vomiting - Genitourinary Denies dysuria, Denies hematuria Past Medical History Past Medical History: COPD, GERD/Reflux, Hyperlipidemia, Hypertension Additional Past Medical History / Comment(s): seasaonal allergies History of Any Multi-Drug Resistant Organisms: None Reported Past Surgical History: Back Surgery Past Anesthesia/Blood Transfusion Reactions: No Reported Reaction Past Psychological History: Depression Smoking Status: Former smoker Past Alcohol Use History: None Reported Additional Past Alcohol Use History / Comment(s): smoked 30 years off and on 1ppd quit 2009 Past Drug Use History: None Reported - Past Family History Sister(s) Family Medical History: Cancer Additional Family Medical History / Comment(s): lung and colon cancer Medications and Allergies Home Medications Medication Instructions Recorded Confirmed Type Aclidinium Calvin [Tudorza 400 mcg PO BID 04/02/18 04/11/18 History Pressair] Aspirin 325 mg PO DAILY 04/02/18 04/11/18 History Atorvastatin [Lipitor] 40 mg PO DAILY 04/02/18 04/11/18 History Famotidine [Pepcid] 40 mg PO DAILY 04/02/18 04/11/18 History Glucosamine Sulfate 500 mg PO DAILY 04/02/18 04/11/18 History L.acidoph,Paracasei, B.lactis 1 cap PO DAILY 04/02/18 04/11/18 History [Probiotic] Losartan/Hydrochlorothiazide 1 tab PO DAILY 04/02/18 04/11/18 History [Losartan-Hctz 100-12.5 mg Tab] Montelukast Sodium [Singulair] 10 mg PO DAILY 04/02/18 04/11/18 History Allergies Allergy/AdvReac Type Severity Reaction Status Date / Time No Known Allergies Allergy Verified 04/11/18 11:29 Surgical - Exam Vital Signs Temp Pulse Resp BP Pulse Ox 98.0 F 72 18 120/65 96 04/11/18 06:33 04/11/18 06:33 04/11/18 06:33 04/11/18 06:33 04/11/18 06:33 - General well developed, well nourished, no distress - Respiratory normal respiratory effort - Abdomen Abdomen: soft, non tender, no guarding, no rigid, no rebound - Genitourinary normal penis with no external lesions, testicles non-tender - Rectum Rectum: normal sphincter tone, no masses, other (Prostate mildly enlarged and smooth) - Psychiatric oriented to time, oriented to person, oriented to place, speech is normal, memory intact Results - Labs 04/16/18 07:53 04/16/18 07:53 Abnormal Lab Results - Last 24 Hours (Table) 04/16/18 04/16/18 04/16/18 Range/Units 07:53 07:53 20:59 WBC 11.7 H (3.8-10.6) k/uL RBC 4.05 L (4.30-5.90) m/uL Hgb 11.9 L (13.0-17.5) gm/dL Hct 35.4 L (39.0-53.0) % Plt Count 580 H (150-450) k/uL Eosinophils # 1.6 H (0-0.7) k/uL Sodium 131 L (137-145) mmol/L Chloride 96 L (98-107) mmol/L BUN 25 H (9-20) mg/dL Glucose 105 H (74-99) mg/dL POC Glucose (mg/dL) 147 H (75-99) mg/dL Diabetes panel 04/16/18 Range/Units 07:53 Sodium 131 L (137-145) mmol/L Potassium 4.7 (3.5-5.1) mmol/L Chloride 96 L (98-107) mmol/L Carbon Dioxide 22 (22-30) mmol/L BUN 25 H (9-20) mg/dL Creatinine 1.10 (0.66-1.25) mg/dL Glucose 105 H (74-99) mg/dL Calcium 9.0 (8.4-10.2) mg/dL Calcium panel 04/16/18 Range/Units 07:53 Calcium 9.0 (8.4-10.2) mg/dL Pituitary panel 04/16/18 Range/Units 07:53 Sodium 131 L (137-145) mmol/L Potassium 4.7 (3.5-5.1) mmol/L Chloride 96 L (98-107) mmol/L Carbon Dioxide 22 (22-30) mmol/L BUN 25 H (9-20) mg/dL Creatinine 1.10 (0.66-1.25) mg/dL Glucose 105 H (74-99) mg/dL Calcium 9.0 (8.4-10.2) mg/dL Adrenal panel 04/16/18 Range/Units 07:53 Sodium 131 L (137-145) mmol/L Potassium 4.7 (3.5-5.1) mmol/L Chloride 96 L (98-107) mmol/L Carbon Dioxide 22 (22-30) mmol/L BUN 25 H (9-20) mg/dL Creatinine 1.10 (0.66-1.25) mg/dL Glucose 105 H (74-99) mg/dL Calcium 9.0 (8.4-10.2) mg/dL Assessment and Plan Plan: As stated, the patient has failed 2 voiding trials. It is anticipated that he will be discharged home tomorrow. It would be my recommendation that he go home with the Rai catheter. I have sent a prescription for tamsulosin. I have instructed the patient to remove his Rai catheter at bedtime on 2017. He will follow up with Dr. Jasmine the following day to assess bladder emptying, and undergo replacement of the Rai catheter if the urinary retention persists. Please notify me if we can be of any further assistance. Time with Patient: Greater than 30
== END 2018-04-17 14:41 | disposition home health service (06) | DRG 164 ==
LOC: 2ORMAIN 05:39 → 6SEL 10:56 → 3SCARD 04-14 11:26 → 6SEL 04-14 11:26 → 3SCARD 04-15 16:20
PROVIDERS: ADMIT Thoracic Surgery (Cardiothoracic Vascular Surgery); ATTEND Thoracic Surgery (Cardiothoracic Vascular Surgery)
PROC: 0BTG4ZZ Resection of Left Upper Lung Lobe, Percutaneous Endoscopic Approach (ICD-10-PCS; principal; 2018-04-11 07:30)
PROC: 8E0W4CZ Robotic Assisted Procedure of Trunk Region, Percutaneous Endoscopic Approach (ICD-10-PCS; principal; 2018-04-11 07:30)
PROC: 07B74ZX Excision of Thorax Lymphatic, Percutaneous Endoscopic Approach, Diagnostic (ICD-10-PCS; principal; 2018-04-11 07:30)
DX: C34.11 Malignant neoplasm of upper lobe, right bronchus or lung (principal); J93.9 Pneumothorax, unspecified; J96.10 Chronic respiratory failure, unspecified whether with hypoxia or hypercapnia; J98.11 Atelectasis; E78.5 Hyperlipidemia, unspecified; F17.201 Nicotine dependence, unspecified, in remission; F41.9 Anxiety disorder, unspecified; I10 Essential (primary) hypertension; I25.10 Atherosclerotic heart disease of native coronary artery without angina pectoris; I48.0 Paroxysmal atrial fibrillation; J44.9 Chronic obstructive pulmonary disease, unspecified; K21.9 Gastro-esophageal reflux disease without esophagitis; K22.70 Barrett's esophagus without dysplasia; K59.00 Constipation, unspecified; M41.9 Scoliosis, unspecified; Z79.82 Long term (current) use of aspirin; Z80.0 Family history of malignant neoplasm of digestive organs; Z80.1 Family history of malignant neoplasm of trachea, bronchus and lung; Z79.51 Long term (current) use of inhaled steroids; Z79.899 Other long term (current) drug therapy; R33.8 Other retention of urine
CPT/HCPCS: 71045; 71046; 71275; 80048; 80053; 81001; 83735; 84100; 84132; 85025; 86850; 86900; 86901; 88305; 88309; 88312; 88331; 88341; 88342; 93306; 94640; 94667; 94668; 94760

== ENCOUNTER → 2019-01-13 | Outpatient (CLI) | payer MEDICARE ==
--- NOTE | 2019-01-13 16:48 | CT ---
EXAMINATION TYPE: CT ChestAbdPelvis w con DATE OF EXAM: 01/13/2019 INDICATION: Lung CA COMPARISON: 04/13/2018, 10/15/2018 CT DLP: 982.5 mGycm CONTRAST: Performed with Oral Contrast and with IV Contrast, patient injected with 80 mL of Isovue 300. TECHNIQUE: Axial images at 5 mm thick sections. Reconstructed images in the coronal plane. Delayed images through the kidneys. FINDINGS: CT CHEST: Scoliosis is present. Portion of the thyroid visualized is normal. No suspicious lung nodules or focal infiltrates are present. Diminished lung volume on the left is ev ident. Previous pneumothorax has resolved. Minimal increased lung markings are through the left lung base improved from comparison. Right lung appears clear. Previous left pleural effusion effusion has resolved. These time is shifted to the left. No enlarged mediastinal or hilar adenopathy is evident. Coronary a rtery calcification is noted. The ascending aorta diameter at the level of the main pulmonary artery is 3.7 cm. The main pulmonary artery diameter at the bifurcation is 3.[address] ABDOMEN: Liver: Normal Spleen: Normal Pancreas: Normal Adrenal glands: The adrenal glands are normal. Gallbladder: Contracted Some punctate calcifications may be present. Kidneys: No masses are evident. No hydronephrosis is present. Cortical renal cyst is on the right m easuring 10 Hounsfield units. Delayed images were obtained through the kidneys, which remain unremar kable. Aorta: Vascular calcification is within the aorta. Inferior vena cava: Normal. CT PELVIS: Diverticular changes are within the sigmoid colon. No acute diverticulitis is evident. There are loop s of bowel which are incompletely distended or lack oral contrast limiting their evaluation. Appendix: Normal as visualized. Urinary bladder: Normal. Genitourinary structures: Prostate is prominent. Prostate calcification is present. Osseous structures: No suspicious lytic or sclerotic lesions. Scoliosis is present. IMPRESSIONS: 1. No suspicious changes to suggest recurrent or metastatic lung cancer 2. Contracted gallbladder with suspected cholelithiasis. 3. Diverticulosis without acute diverticulitis.
== END | disposition home or self-care (01) ==
LOC: RADPROMAIN 13:41
PROVIDERS: ATTEND Internal Medicine Hematology & Oncology
DX: K57.90 Diverticulosis of intestine, part unspecified, without perforation or abscess without bleeding (principal); K82.0 Obstruction of gallbladder; C34.12 Malignant neoplasm of upper lobe, left bronchus or lung
CPT/HCPCS: 82565; 84520; 71260; 74177; 36415; Q9967

== ENCOUNTER → 2019-04-14 | Outpatient (CLI) | payer MEDICARE ==
--- NOTE | 2019-04-15 10:32 | CT ---
EXAMINATION TYPE: CT ChestAbdPelvis w con DATE OF EXAM: 04/14/2019 INDICATION: Lung cancer. COMPARISON: 01/13/2019 CT DLP: 1213.1 mGycm CONTRAST: Performed with Oral Contrast and with IV Contrast, patient injected with 80 mL of Isovue M300. TECHNIQUE: Axial images at 5 mm thick sections. Reconstructed images in the coronal plane. Delayed images through the kidneys. FINDINGS: CT CHEST: There is scoliosis to the thoracic spine. Small hiatal hernia is present. Portion of the thyroid visualized is normal. No suspicious lung nodules or focal infiltrates are present. Stable minimal increased lung markings a re in the posterior lateral left lung. No enlarged mediastinal or hilar adenopathy is evident. The ascending aorta diameter at the level of the main pulmonary artery is 3.7 cm. The main pulmonary artery diameter at the bifurcation is 3.2 cm. Moderate coronary artery calcification is present. CT ABDOMEN: Liver: Normal Spleen: Normal Pancreas: Normal Adrenal glands: The adrenal glands are normal. Gallbladder: Small gallstones are present. Kidneys: No masses are evident. No hydronephrosis is present. There is a 0.9 cm cyst measuring 2 Ho unsfield units on the lateral right mid kidney. Tiny cortical renal cysts on the left. Delayed image s were obtained through the kidneys, which remain unremarkable. Aorta: Vascular calcification is within the aorta. Inferior vena cava: Normal. CT PELVIS: Loops of bowel within the abdomen and pelvis are normal. Scattered diverticuli within the sigmoid colon. Appendix: Normal as visualized. Urinary bladder: Normal. Genitourinary structures: Prostate is prominent and contains calcification. Osseous structures: No suspicious lytic or sclerotic lesions. IMPRESSIONS: 1. No suspicious changes for recurrent or metastatic lung cancer. 2. Cholelithiasis. 3. Diverticulosis without acute diverticulitis. 4. Cortical renal cysts.
== END | disposition home or self-care (01) ==
LOC: RADPROMAIN 13:19
PROVIDERS: ATTEND Internal Medicine Hematology & Oncology
DX: K80.20 Calculus of gallbladder without cholecystitis without obstruction (principal); K57.90 Diverticulosis of intestine, part unspecified, without perforation or abscess without bleeding; N28.1 Cyst of kidney, acquired; C34.12 Malignant neoplasm of upper lobe, left bronchus or lung
CPT/HCPCS: 82565; 84520; 71260; 74177; J1642; Q9967

== ENCOUNTER → 2019-12-15 | Outpatient (CLI) | payer MEDICARE ==
--- NOTE | 2019-12-15 13:00 | CT ---
EXAMINATION TYPE: CT ChestAbdPelvis w con DATE OF EXAM: 12/15/2019 COMPARISON: CT April 14, 2019 and older CTs. PET/CT March 23, 2018 HISTORY: follow up lung cancer CT DLP: 1551 mGycm. Automated Exposure Control for Dose Reduction was Utilized. CONTRAST: CT scan of the thorax, abdomen and pelvis is performed with oral and with IV Contrast, patient inject ed with 100 mL of Isovue 300. FINDINGS: LUNGS: [id number] underlying emphysematous changes redemonstrated. Mild linear scarring in the left lung base with elevated left hemidiaphragm is again seen. Diminished volume to the left lung con sistent with partial pneumonectomy changes with left hilar surgical sutures is redemonstrated. No new nodules or masses. No pleural effusion or pneumothorax noted bilaterally. MEDIASTINUM: There are no greater than 1 cm hilar or mediastinal lymph nodes. No cardiomegaly or pe ricardial effusion is seen. Coronary artery calcification is redemonstrated which is noted marked un derlying coronary artery disease. Enlarged pulmonary arteries redemonstrated, CT findings consistent with underlying pulmonary artery hypertension. OTHER: Stable right internal jugular Mediport catheter terminating in SVC. Small degree of subareolar bilateral gynecomastia is redemonstrated. LIVER/GB: Dependent small stones in the gallbladder redemonstrated. PANCREAS: No significant abnormality is seen. SPLEEN: No significant abnormality is seen. ADRENALS: No new adrenal masses. KIDNEYS: Stable 4 mm nonobstructing calculus left kidney midpole level coronal image 58. Symmetric co rtical medullary uptake and excretion without hydronephrosis seen bilaterally. Stable 2.1 cm simple a ppearing thin-walled cyst right kidney near axial image 36 series 7. BOWEL: Small size hiatal hernia on current study. Prominent diverticula throughout the transverse lef t and sigmoid colon. No CT evidence for acute diverticulitis. No suspicious small or large bowel dila tation. Oral contrast reaches level of hepatic flexure. GENITAL ORGANS: Mildly enlarged prostate gland with central calcifications. LYMPH NODES: No greater than 1cm abdominal or pelvic lymph nodes are appreciated. OSSEOUS STRUCTURES: Marked underlying dextroconvex scoliosis again seen. Redemonstration of calcified disc at the L1-L2 level. Redemonstration of 2 faint sclerotic foci involving the L3 vertebra coronal image 61 not significantly changed from prior studies. Redemonstration of severe disc space narrowin g and spurring right L4-L5 level. No new suspicious focal osseous lesions are present. OTHER: Moderate to severe calcified plaque of the abdominal aorta extends into the iliac branch vesse ls. IMPRESSION: No new suspicious mass or adenopathy to suggest active neoplastic recurrence.
== END | disposition home or self-care (01) ==
LOC: RADPROMAIN 09:27
PROVIDERS: ATTEND Internal Medicine Hematology & Oncology
DX: C34.12 Malignant neoplasm of upper lobe, left bronchus or lung (principal)
CPT/HCPCS: 82565; 84520; 71260; 74177; J1642; Q9967

== ENCOUNTER 2020-02-14 16:23 | Emergency (ER) | payer MEDICARE ==
[2020-02-14] MEDS ORDERED: SODIUM CHLORIDE 0.9% 1,000 ML IV STA (16:25)
--- NOTE | 2020-02-14 16:25 | ED ---
Chest Pain HPI - General Stated Complaint: Syncope Time Seen by Provider: 02/14/20 16:24 Source: RN notes reviewed, old records reviewed - History of Present Illness Initial Comments: This is a 71-year-old male DF for evaluation patient with us today for evaluation regards to syncope versus near syncopal. Patient states some marijuana and fell asleep on the couch and woke up to his trying to alert him and arouse him. Patient has no pain no complaints right now, history of the same. Patient has been feeling well. Prior history was from ow O2 MD Complaint: other (syncope) Pain Location: epigastric Pain Radiation: none Severity: mild Severity scale (1-10): 3 Quality: aching Consistency: constant Improves With: nothing Worsens With: nothing Anginal Symptoms: nausea Other Symptoms: cough Treatments Prior to Arrival: none - Related Data Home Medications Medication Instructions Recorded Confirmed Aclidinium [place] [Tudorza 400 mcg PO BID 04/02/18 04/11/18 Pressair] Aspirin 325 mg PO DAILY 04/02/18 04/11/18 Atorvastatin [Lipitor] 40 mg PO DAILY 04/02/18 04/11/18 Famotidine [Pepcid] 40 mg PO DAILY 04/02/18 04/11/18 Glucosamine Sulfate 500 mg PO DAILY 04/02/18 04/11/18 L.acidoph,Paracasei, B.lactis 1 cap PO DAILY 04/02/18 04/11/18 [Probiotic] Losartan/Hydrochlorothiazide 1 tab PO DAILY 04/02/18 04/11/18 [Losartan-Hctz 100-12.5 mg Tab] Montelukast Sodium [Singulair] 10 mg PO DAILY 04/02/18 04/11/18 Previous Rx's Medication Instructions Recorded Tamsulosin [Flomax] 0.4 mg PO DAILY #30 cap 04/16/18 Acetaminophen Tab [Tylenol] 650 mg PO Q4HR PRN tab 04/17/18 Albuterol Inhaler (Mhu) [Ventolin 1 - 2 puff INHALATION RT-Q6H PRN 04/17/18 Hfa Inhaler (Mhu)] #1 inhaler Amiodarone [Cordarone] 200 mg PO BID #30 tab 04/17/18 Metoprolol Tartrate [Lopressor] 25 mg PO BID #60 tablet 04/17/18 methylPREDNISolone Dose Pack 4 mg PO DIRECTED #21 package 04/17/18 [Medrol Dose Pack] Allergies Allergy/AdvReac Type Severity Reaction Status Date / Time No Known Allergies Allergy Verified 02/14/20 16:37 Review of Systems ROS Statement: Those systems with pertinent positive or pertinent negative responses have been documented in the HPI. ROS Other: All systems not noted in ROS Statement are negative. EKG Findings - EKG Comments: EKG Findings:: EKG is sinus rhythm 75 RI 164 QRS 1:30 QTc 460 Past Medical History Past Medical History: COPD, GERD/Reflux, Hyperlipidemia, Hypertension Additional Past Medical History / Comment(s): seasaonal allergies History of Any Multi-Drug Resistant Organisms: None Reported Past Surgical History: Back Surgery Past Anesthesia/Blood Transfusion Reactions: No Reported Reaction Past Psychological History: Depression Past Alcohol Use History: None Reported Additional Past Alcohol Use History / Comment(s): smoked 30 years off and on 1ppd quit 2009 Past Drug Use History: None Reported - Past Family History Sister(s) Family Medical History: Cancer Additional Family Medical History / Comment(s): lung and colon cancer General Exam General appearance: alert, in no apparent distress Head exam: Present: atraumatic, normocephalic, normal inspection Eye exam: Present: normal appearance, PERRL, EOMI. Absent: scleral icterus, conjunctival injection, periorbital swelling ENT exam: Present: normal exam, mucous membranes moist Neck exam: Present: normal inspection. Absent: tenderness, meningismus, lymphadenopathy Respiratory exam: Present: normal lung sounds bilaterally. Absent: respiratory distress, wheezes, rales, rhonchi, stridor Cardiovascular Exam: Present: regular rate, normal rhythm, normal heart sounds. Absent: systolic murmur, diastolic murmur, rubs, gallop, clicks GI/Abdominal exam: Present: soft, normal bowel sounds. Absent: distended, tend erness, guarding, rebound, rigid Extremities exam: Present: normal inspection, full ROM, normal capillary refill. Absent: tenderness, pedal edema, joint swelling, calf tenderness Back exam: Present: normal inspection Neurological exam: Present: alert, oriented X3, CN II-XII intact Psychiatric exam: Present: normal affect, normal mood Skin exam: Present: warm, dry, intact, normal color. Absent: rash Course Vital Signs 08/15/20 16:33 Temperature 97.9 F Pulse Rate 95 Respiratory 18 Rate Blood Pressure 127/73 O2 Sat by Pulse 96 Oximetry - Reevaluation(s) Reevaluation #1: 02/14/20 16:44 medical record is reviewed Reevaluation #2: 02/14/20 19:04 Patient has no recurrent syncope or syncopal syncopal near syncopal event here in the ER remains without complaint Reevaluation #3: 02/14/20 19:04 Recheck with patient's patient has no headache chest pain shortness of breath or abdominal pain Reevaluation #4: 02/14/20 19:05 Patient informed of results is okay for discharge home Chest Pain MDM - MDM 71 male DF for evaluation of a syncopal event, this happened after smoking some marijuana today walking up a flight of stairs patient's was at sitting on a couch next passed out she was able to arouse and EMS to coming to the hospital, patient is without complaint here distress and can be discharged home Disposition Clinical Impression: Vasovagal syncope, Near syncope, Syncope Disposition: HOME SELF-CARE Condition: Good Instructions (If sedation given, give patient instructions): Syncope (ED) Is patient prescribed a controlled substance at d/c from ED?: No Referrals: Nataly You MD [Primary Care Provider] - 1-2 days
[2020-02-14 16:37] VITALS: TEMP 97.9
[2020-02-14 17:06] LABS: D-Dimer 0.38 mg/L FEU (<0.60); INR 0.9 (<1.2); Partial Thromboplastin Time 22.9 sec (22.0-30.0); Prothrombin Time 9.9 sec (9.0-12.0)
[2020-02-14 17:08] LABS: Basophils % (A) 0 %; Eosinophils # (A) 1.9 k/uL (0-0.7); Eosinophils % (A) 20 %; HCT 39.9 % (39.0-53.0); HGB 13.3 gm/dL (13.0-17.5); Lymphocytes # (A) 2.4 k/uL (1.0-4.8); Lymphocytes % (A) 26 %; MCH 29.7 pg (25.0-35.0); MCHC 33.4 g/dL (31.0-37.0); MCV 89.1 fL (80.0-100.0); Monocytes # (A) 0.6 k/uL (0-1.0); Monocytes % (A) 6 %; Neutrophils # (A) 4.2 k/uL (1.3-7.7); Neutrophils % (A) 45 %; Platelet Count 295 k/uL (150-450); RBC 4.47 m/uL (4.30-5.90); RDW 12.6 % (11.5-15.5); WBC 9.4 k/uL (3.8-10.6)
[2020-02-14 17:13] LABS: Albumin 3.9 g/dL (3.5-5.0); Calcium 8.8 mg/dL (8.4-10.2); Magnesium 1.8 mg/dL (1.6-2.3); Potassium 3.7 mmol/L (3.5-5.1); Total Bilirubin 0.6 mg/dL (0.2-1.3); Total Protein 6.4 g/dL (6.3-8.2)
--- NOTE | 2020-02-14 17:36 | XR ---
EXAMINATION TYPE: XR chest 2V DATE OF EXAM: 02/14/2020 COMPARISON: 04/17/2018 HISTORY: Postop TECHNIQUE: FINDINGS: There is thoracic dextroscoliosis deformity. There is slight elevated left diaphragm. Lungs appear clear of consolidation. There is minimal atelectasis left lung base. There are no hilar jack s. Heart size is normal. Thoracic aorta is atheromatous. IMPRESSION: Scoliotic deformity. Minimal pleural reaction left lung base improved compared to old exa m.
[2020-02-14 19:18] VITALS: BP 128/77; PULSE 73; RESP 16
== END 2020-02-14 19:22 | disposition home or self-care (01) ==
LOC: EC 16:23
DX: R55 Syncope and collapse (principal); E78.5 Hyperlipidemia, unspecified; K21.9 Gastro-esophageal reflux disease without esophagitis; I10 Essential (primary) hypertension; J44.9 Chronic obstructive pulmonary disease, unspecified; Z79.82 Long term (current) use of aspirin; Z79.899 Other long term (current) drug therapy; Z87.891 Personal history of nicotine dependence
CPT/HCPCS: 36415; 71046; 80053; 82550; 83735; 84484; 85025; 85379; 85610; 85730; 93005; 96360; 99285

== ENCOUNTER → 2020-02-27 | Outpatient (CLI) | payer MEDICARE ==
--- NOTE | 2020-03-10 12:11 | HM ---
This is a report on 24-hour Holter monitor. Baseline rhythm is sinus with a first-degree heart block and bundle branch block pattern. Occasional PVCs and occasional APCs were noted. There are one episode of pause less than 2 seconds associated with nonconducted P-wave. There was one brief episodes of SVT consisting of 4 beats. Patient did not complain of any symptoms. Final impression: #1. Sinus rhythm. #2 occasional APCs. #3 occasional PVCs #4 one episode of pause of less than 2 seconds associated with nonconducted P-wave that happened during sleep hours. #4. Patient did not complain of any symptoms. #5. One brief episode of SVT consisting of 4 beats. MTDD
== END | disposition home or self-care (01) ==
LOC: RADECHMAIN 12:16
PROVIDERS: ATTEND Family Medicine
DX: R55 Syncope and collapse (principal)
CPT/HCPCS: 93225; 93226

== ENCOUNTER → 2020-04-12 | Outpatient (CLI) | payer MEDICARE ==
--- NOTE | 2020-04-12 13:53 | CT ---
EXAMINATION TYPE: CT ChestAbdPelvis w con DATE OF EXAM: 04/12/2020 COMPARISON: 12/15/2019 HISTORY: Follow up scan. No complaints at time of scan CT DLP: 1099.7 mGycm Automated exposure control for dose reduction was used. CONTRAST: CT scan of the chest, abdomen and pelvis is performed with Oral Contrast and with IV Contrast, patien t injected with 100 mL of Isovue 300. FINDINGS: LUNGS: [id number] underlying emphysematous changes redemonstrated. Mild linear scarring in the left lung base with elevated left hemidiaphragm is again seen. Diminished volume to the left lung con sistent with partial pneumonectomy changes with left hilar surgical sutures is redemonstrated. No new nodules or masses. No pleural effusion or pneumothorax noted bilaterally. MEDIASTINUM: There are no greater than 1 cm hilar or mediastinal lymph nodes. No cardiomegaly or tomasz cardial effusion is seen. Coronary artery calcification is again noted. Enlarged pulmonary arteries r edemonstrated, CT findings consistent with underlying pulmonary artery hypertension. Atherosclerotic change aorta. No evidence of aneurysm. Trace amount of pericardial fluid. OTHER: Stable right internal jugular Mediport catheter terminating in SVC. Small degree of subareola r bilateral gynecomastia is redemonstrated LIVER/GB: Cholelithiasis. Calcification along the dome of the anterior margin of the liver. PANCREAS: No significant abnormality is seen. SPLEEN: No significant abnormality is seen. ADRENALS: No significant abnormality is seen. KIDNEYS: Hypodensity within the right kidney compatible simple cyst. Additional smaller subcentimeter hypodensities are too small to characterize but statistically most likely related to cysts. Follow-u p as clinically warranted. Stable 4 mm left renal nonobstructing calculus. BOWEL: Bowel gas pattern nonspecific with changes of diverticulosis. Small hiatal hernia. LYMPH NODES: No greater than 1 cm abdominal or pelvic lymph nodes are appreciated. OSSEOUS STRUCTURES: Marked underlying dextroconvex scoliosis again seen. Redemonstration of calcified disc at the L1-L2 level. Redemonstration of 2 faint sclerotic foci involving the L3 vertebra coronal image 61 not significantly changed from prior studies. Redemonstration of severe disc space narrowin g and spurring right L4-L5 level. No new suspicious focal osseous lesions are present OTHER: Aorta demonstrates atherosclerotic changes. No evidence of aneurysm. IMPRESSION: 1. Postsurgical changes with findings of COPD and no evidence of pathologic adenopathy or new mass. 2. Severe scoliosis with probable multilevel canal stenosis and facet arthropathy. 3. Cholelithiasis. 4. Simple right renal cyst. 5. Diverticulosis of the colon
== END | disposition home or self-care (01) ==
LOC: RADCTMAIN 11:18
PROVIDERS: ATTEND Internal Medicine Hematology & Oncology
DX: J44.9 Chronic obstructive pulmonary disease, unspecified (principal); K80.20 Calculus of gallbladder without cholecystitis without obstruction; N28.1 Cyst of kidney, acquired; K57.30 Diverticulosis of large intestine without perforation or abscess without bleeding; C34.12 Malignant neoplasm of upper lobe, left bronchus or lung; Z90.2 Acquired absence of lung [part of]
CPT/HCPCS: 82565; 84520; 71260; 74177; 36415; Q9967

== ENCOUNTER → 2020-10-11 | Outpatient (CLI) | payer MEDICARE ==
--- NOTE | 2020-10-11 15:42 | CT ---
EXAMINATION TYPE: CT ChestAbdPelvis w con DATE OF EXAM: 10/11/2020 COMPARISON: 04/02/2020 and 12/15/2019 HISTORY: 80-year-old male C3 4.12, Lung cancer TECHNIQUE: Contiguous axial scanning of the chest, abdomen, and pelvis performed with IV Contrast, pa tient injected with 100 ml mL of Isovue 300. Delayed images through the kidneys were obtained. Norris l/sagittal reconstructions performed. CT DLP: 2162 mGycm Automated exposure control for dose reduction was used. FINDINGS: CHEST: The heart is normal size without pericardial effusion. There is volume loss in the left side of the c hest secondary to prior partial left lung resection. Surgical changes of the left hilum are stable. Mild atherosclerotic arch calcifications with conventional arch vessel branching anatomy. No thoracic lymphadenopathy by CT size criteria. Some mild tree-in-bud opacities within the bilateral lower lobes are unchanged. Mild centrilobular em physema. No consolidation or pleural effusion. ABDOMEN: Tiny hiatal hernia. No focal liver lesion. Small lateral segments of the left liver lobe. Portal venous system is patent. No biliary ductal dilatation. Some layering gravel or tiny calculi in the nondistended gallbladder. Adrenal glands, spleen, pancreas within normal limits. 2.4 cm cortical cyst lateral right kidney. There is cortical thinning bilaterally suggesting chronic medical renal disease. 4 mm nonobstructive left renal calculus and a few tiny subcentimeter hypodensities in the left kidney too small for accurate CT characterization, likely tiny cysts. Moderate atherosclerotic calcifications abdominal aorta and common iliac arteries without aneurysm. No dilated small bowel, free fluid, or free air. No mesenteric or retroperitoneal lymphadenopathy. Moderate stool burden. Generalized colonic diverticulosis. PELVIS: Bladder is urine distended. Prostate gland is enlarged at 5.4 cm wide. No abnormal fluid collection i n the pelvis or pelvic lymphadenopathy. BONES: Mild degenerative change at the hips. Marked dextro convex scoliosis of the lumbar spine with degenerative changes in the lumbar spine. No osseous destructive process. Normal variant sternal fora men. IMPRESSION: 1. PREVIOUS PARTIAL LEFT LUNG RESECTION WITH STABLE VOLUME LOSS AND POSTSURGICAL CHANGE. NO EVIDENCE FOR RECURRENT OR METASTATIC DISEASE. 2. REDEMONSTRATED MILD TREE-IN-BUD OPACITIES IN THE BILATERAL LOWER LOBES. CORRELATE FOR CHRONIC BRON CHIOLITIS OR ATYPICAL INDOLENT INFECTIONS. 3. TINY LAYERING GALLSTONES OR GRAVEL. 4 MM NONOBSTRUCTIVE LEFT RENAL CALCULUS. GENERALIZED COLONIC D IVERTICULOSIS WITH MODERATE STOOL BURDEN. 4. MARKED DEXTROCONVEX SCOLIOSIS.
== END | disposition home or self-care (01) ==
LOC: RADCTMAIN 11:51
PROVIDERS: ATTEND Internal Medicine Hematology & Oncology
DX: Z03.89 Encounter for observation for other suspected diseases and conditions ruled out (principal); C34.12 Malignant neoplasm of upper lobe, left bronchus or lung; R91.8 Other nonspecific abnormal finding of lung field; K80.20 Calculus of gallbladder without cholecystitis without obstruction; N20.0 Calculus of kidney; K57.30 Diverticulosis of large intestine without perforation or abscess without bleeding; Z98.890 Other specified postprocedural states
CPT/HCPCS: 82565; 84520; 71260; 74177; 36415; Q9967

== ENCOUNTER 2021-02-23 10:06 | Emergency (ER) | payer MEDICARE ==
[2021-02-23 10:14] VITALS: RESP 18; TEMP 97.9
[2021-02-23] MEDS ORDERED: KETOROLAC 15 MG/ML 1 ML VIAL IVP STA (10:26)
[2021-02-23] MEDS ORDERED: SODIUM CHLORIDE 0.9% 500 ML 500 ML IV STA (10:26)
--- NOTE | 2021-02-23 10:33 | ED ---
General Adult HPI - General Chief complaint: Headache Stated complaint: head pressure, SOB Time Seen by Provider: 02/23/21 10:16 Source: patient, RN notes reviewed, old records reviewed Mode of arrival: ambulatory Limitations: no limitations - History of Present Illness Initial comments: 80-year-old white male, alert and oriented 4, presents to the emergency room with complaints of a headache that woke him up at 3 AM. He states the pain is a pressure behind his left eye painful with eye movement. He has been using warm compresses which helps alleviate some of the pressure. He noticed that the eye is also red. He was treated for sinus infection and just finished antibiotics last week. He states that when he took a shower this morning he felt dizzy related to the headache. He denies any fevers however does state that he feels short of breath also. His shortness of breath has been ongoing for the past 3 weeks. He states that he did have a left lobectomy due to cancer in the past. He states that his oxygen level at home was reading in the low 90s. Call his primary care doctor and told to come to the emergency room for evaluation of possible pneumonia. -: hour(s) (7) Location: head Severity scale (1-10): 3 Quality: other Consistency: constant Improves with: other (Warm compresses) Worsens with: movement (Movement of his left thigh) Associated Symptoms: headaches, shortness of breath, other (Dizziness) - Related Data Home Medications Medication Instructions Recorded Confirmed Atorvastatin [Lipitor] 40 mg PO DAILY 04/02/18 02/23/21 Montelukast Sodium [Singulair] 10 mg PO HS 04/02/18 02/23/21 Aspirin EC [Ecotrin Low Dose] 81 mg PO DAILY 02/23/21 02/23/21 Budesonide [Pulmicort Flexhaler] 2 puff INHALATION RT-BID 02/23/21 02/23/21 Glucosam/Patricio-Msm1/C/Alfred/Bosw 1 tab PO DAILY 02/23/21 02/23/21 [Glucosamine-Chondroitin Tablet] Hydrochlorothiazide 12.5 mg PO DAILY 02/23/21 02/23/21 [hydroCHLOROthiazide] Lansoprazole 30 mg PO DAILY 02/23/21 02/23/21 Losartan [Cozaar] 25 mg PO DAILY 02/23/21 02/23/21 Previous Rx's Medication Instructions Recorded Polymyxin B-Trimeth Sulf Ophth 1 drops BOTH EYES Q4H 10 Days #30 02/23/21 [Polytrim Opthalmic] ml Allergies Allergy/AdvReac Type Severity Reaction Status Date / Time No Known Allergies Allergy Verified 02/23/21 11:42 Review of Systems ROS Statement: Those systems with pertinent positive or pertinent negative responses have been documented in the HPI. ROS Other: All systems not noted in ROS Statement are negative. Past Medical History Past Medical History: COPD, GERD/Reflux, Hyperlipidemia, Hypertension Additional Past Medical History / Comment(s): seasaonal allergies History of Any Multi-Drug Resistant Organisms: None Reported Past Surgical History: Back Surgery Additional Past Surgical History / Comment(s): left upper lobectomy Past Anesthesia/Blood Transfusion Reactions: No Reported Reaction Past Psychological History: Depression Smoking Status: Never smoker Past Alcohol Use History: None Reported Past Drug Use History: None Reported - Past Family History Sister(s) Family Medical History: Cancer Additional Family Medical History / Comment(s): lung and colon cancer General Exam Limitations: no limitations General appearance: alert, in no apparent distress Head exam: Present: atraumatic, normocephalic, normal inspection Eye exam: Present: PERRL, EOMI, conjunctival injection, periorbital tenderness (Left eye). Absent: scleral icterus, periorbital swelling (Left eye) ENT exam: Present: normal exam, mucous membranes moist Neck exam: Present: normal inspection. Absent: tenderness, meningismus, lymphadenopathy Respiratory exam: Present: wheezes, other (Left upper lobe lobectomy) Cardiovascular Exam: Present: tachycardia, normal heart sounds GI/Abdominal exam: Present: soft, normal bowel sounds. Absent: distended, tenderness, guarding, rebound, rigid Extremities exam: Present: normal inspection, full ROM, normal capillary refill. Absent: tenderness, pedal edema, joint swelling, calf tenderness Back exam: Present: normal inspection, full ROM. Absent: tenderness, CVA tenderness (R), CVA tenderness (L), muscle spasm, paraspinal tenderness, vertebral tenderness Neurological exam: Present: alert, oriented X3, CN II-XII intact, normal gait Psychiatric exam: Present: normal affect, normal mood Skin exam: Present: warm, dry, intact, normal color, other (Mild scattered macular rash to legs and abdomen and back). Absent: rash Course Vital Signs 02/23/21 02/23/21 10:08 12:31 Temperature 97.9 F Pulse Rate 105 H 75 Respiratory 18 18 Rate Blood Pressure 144/88 131/84 O2 Sat by Pulse 98 95 Oximetry EKG Findings - EKG Results: EKG: WNL (Ventricular rate 85, ND interval 0.138, QRS 0.116, QTC 0.449), not changed from: (02/14/20) Medical Decision Making - Medical Decision Making CT brain shows no intracranial process. Chest x-ray shows no acute abnormalities, marked scoliosis noted. EKG shows normal sinus rhythm with no ST elevation or acute changes. Troponin is negative at 0.012, d-dimer is negative at 0.35, his pulse ox is 98% with heart rate of 85. WBC count is slightly elevated at 11.5, likely related to him taking prednisone. Tonometer pressures in the left eye are 12, in the right eye are 14. Fluorescein stain with artis lamp reveals no corneal abrasion. Patient states that he did get relief with Toradol and Benadryl here in the emergency room. The left eye is injected he will be prescribed antibiotics for conjunctivitis. Patient will be directed to follow up with his primary care doctor, return if any worsening or new symptoms including worsening shortness of breath, chest pain or fevers. Case discussed with Dr. Craig. - Lab Data Result diagrams: 02/23/21 10:43 02/23/21 10:43 Lab Results 02/23/21 02/23/21 02/23/21 Range/Units 10:43 10:43 10:43 WBC 11.5 H (3.8-10.6) k/uL RBC 4.72 (4.30-5.90) m/uL Hgb 14.9 (13.0-17.5) gm/dL Hct 43.8 (39.0-53.0) % MCV 92.8 (80.0-100.0) fL MCH 31.7 (25.0-35.0) pg MCHC 34.1 (31.0-37.0) g/dL RDW 13.1 (11.5-15.5) % Plt Count 384 (150-450) k/uL MPV 6.9 Neutrophils % 80 % Lymphocytes % 10 % Monocytes % 5 % Eosinophils % 5 % Basophils % 0 % Neutrophils # 9.1 H (1.3-7.7) k/uL Lymphocytes # 1.1 (1.0-4.8) k/uL Monocytes # 0.6 (0-1.0) k/uL Eosinophils # 0.5 (0-0.7) k/uL Basophils # 0.0 (0-0.2) k/uL PT 9.8 (9.0-12.0) sec INR 0.9 (<1.2) APTT 23.3 (22.0-30.0) sec D-Dimer 0.35 (<0.60) mg/L FEU Sodium 132 L (137-145) mmol/L Potassium 3.9 (3.5-5.1) mmol/L Chloride 100 (98-107) mmol/L Carbon Dioxide 25 (22-30) mmol/L Anion Gap 7 mmol/L BUN 15 (9-20) mg/dL Creatinine 0.96 (0.66-1.25) mg/dL Est GFR (CKD-EPI)AfAm 87 (>60 ml/min/1.73 sqM) Est GFR (CKD-EPI)NonAf 75 (>60 ml/min/1.73 sqM) Glucose 120 H (74-99) mg/dL Plasma Lactic Acid Miguel (0.7-2.0) mmol/L Calcium 9.0 (8.4-10.2) mg/dL Total Bilirubin 0.5 (0.2-1.3) mg/dL AST 32 (17-59) U/L ALT 38 (4-49) U/L Alkaline Phosphatase 65 (38-126) U/L Troponin I (0.000-0.034) ng/mL Total Protein 6.4 (6.3-8.2) g/dL Albumin 3.7 (3.5-5.0) g/dL 02/23/21 02/23/21 Range/Units 10:43 10:43 WBC (3.8-10.6) k/uL RBC (4.30-5.90) m/uL Hgb (13.0-17.5) gm/dL Hct (39.0-53.0) % MCV (80.0-100.0) fL MCH (25.0-35.0) pg MCHC (31.0-37.0) g/dL RDW (11.5-15.5) % Plt Count (150-450) k/uL MPV Neutrophils % % Lymphocytes % % Monocytes % % Eosinophils % % Basophils % % Neutrophils # (1.3-7.7) k/uL Lymphocytes # (1.0-4.8) k/uL Monocytes # (0-1.0) k/uL Eosinophils # (0-0.7) k/uL Basophils # (0-0.2) k/uL PT (9.0-12.0) sec INR (<1.2) APTT (22.0-30.0) sec D-Dimer (<0.60) mg/L FEU Sodium (137-145) mmol/L Potassium (3.5-5.1) mmol/L Chloride (98-107) mmol/L Carbon Dioxide (22-30) mmol/L Anion Gap mmol/L BUN (9-20) mg/dL Creatinine (0.66-1.25) mg/dL Est GFR (CKD-EPI)AfAm (>60 ml/min/1.73 sqM) Est GFR (CKD-EPI)NonAf (>60 ml/min/1.73 sqM) Glucose (74-99) mg/dL Plasma Lactic Acid Miguel 1.0 (0.7-2.0) mmol/L Calcium (8.4-10.2) mg/dL Total Bilirubin (0.2-1.3) mg/dL AST (17-59) U/L ALT (4-49) U/L Alkaline Phosphatase (38-126) U/L Troponin I <0.012 (0.000-0.034) ng/mL Total Protein (6.3-8.2) g/dL Albumin (3.5-5.0) g/dL Disposition Clinical Impression: Conjunctivitis, COPD (chronic obstructive pulmonary disease) Disposition: HOME SELF-CARE Condition: Good Instructions (If sedation given, give patient instructions): COPD (Chronic Obstructive Pulmonary Disease) (ED), Conjunctivitis (ED) Additional Instructions: Take the medication as prescribed for your red eye. Follow-up with the primary care doctor this week. Return to the emergency room with any new or worsening symptoms bleeding fever, increased pain or shortness of breath. Follow-up with ophthalmology if your eye symptoms do not resolve or get worse. Prescriptions: Polymyxin B-Trimeth Sulf Ophth [Polytrim Opthalmic] 1 drops BOTH EYES Q4H 10 Days #30 ml Is patient prescribed a controlled substance at d/c from ED?: No Referrals: Nataly You MD [Primary Care Provider] - 1-2 days Dar Dorsey MD [STAFF PHYSICIAN] - 1-2 days Time of Disposition: 12:16
[2021-02-23] MEDS ORDERED: diphenhydrAMINE 50 MG/ML 1 ML VIAL IVP STA (10:35)
[2021-02-23 10:51] LABS: Basophils % (A) 0 %; Eosinophils # (A) 0.5 k/uL (0-0.7); Eosinophils % (A) 5 %; HCT 43.8 % (39.0-53.0); HGB 14.9 gm/dL (13.0-17.5); Lymphocytes # (A) 1.1 k/uL (1.0-4.8); Lymphocytes % (A) 10 %; MCH 31.7 pg (25.0-35.0); MCHC 34.1 g/dL (31.0-37.0); MCV 92.8 fL (80.0-100.0); Mean Platelet Volume 6.9; Monocytes # (A) 0.6 k/uL (0-1.0); Monocytes % (A) 5 %; Neutrophils # (A) 9.1 k/uL (1.3-7.7); Neutrophils % (A) 80 %; Platelet Count 384 k/uL (150-450); RBC 4.72 m/uL (4.30-5.90); RDW 13.1 % (11.5-15.5); WBC 11.5 k/uL (3.8-10.6)
[2021-02-23 11:03] LABS: Albumin 3.7 g/dL (3.5-5.0); Potassium 3.9 mmol/L (3.5-5.1); Total Bilirubin 0.5 mg/dL (0.2-1.3); Total Protein 6.4 g/dL (6.3-8.2)
[2021-02-23 11:08] LABS: INR 0.9 (<1.2); Partial Thromboplastin Time 23.3 sec (22.0-30.0); Prothrombin Time 9.8 sec (9.0-12.0)
--- NOTE | 2021-02-23 11:13 | CT ---
EXAMINATION TYPE: CT brain wo con DATE OF EXAM: 02/23/2021 COMPARISON: None HISTORY: pressure behind Lt eye CT DLP: 1099.[address] of the brain was performed. The ventricles, basal cisterns and sulci overlying the cerebral convexities demonstrate mild enlargem ent. There is no evidence for intracranial hemorrhage or sulcal effacement. There is decreased attenuation about the periventricular white matter and deep white matter of both c erebral hemispheres, compatible with chronic small vessel ischemia. Differential diagnosis does inclu de demyelination. No mass effects are seen.No midline shift. Osseous calvarium is intact. If symptoms persist consider MRI. IMPRESSION: 1. Age related atrophic and chronic small vessel ischemic change without acute intracranial process s een at this time.
--- NOTE | 2021-02-23 11:14 | XR ---
EXAMINATION TYPE: XR chest 2V DATE OF EXAM: 02/23/2021 COMPARISON: Chest x-ray 02/14/2020 HISTORY: Shortness of breath TECHNIQUE: Frontal and lateral views of the chest are obtained. FINDINGS: Findings are stable. IMPRESSION: Stable exam, no acute abnormalities evident. Marked scoliotic curvature. Chronic pleural reaction left chest.
[2021-02-23] MEDS ORDERED: PROPARACAINE 0.5% OPHTH DROPS 15 ML BTL LEFT EYE STA (12:21)
[2021-02-23] MEDS ORDERED: FLUORESCEIN STRIPS 1 MG STRIP LEFT EYE ONE (12:21)
[2021-02-23 12:31] VITALS: BP 131/84; PULSE 75
== END 2021-02-23 13:09 | disposition home or self-care (01) ==
LOC: EC 10:06
DX: H10.9 Unspecified conjunctivitis (principal); J44.9 Chronic obstructive pulmonary disease, unspecified; I10 Essential (primary) hypertension; R51.9 Headache, unspecified; K21.9 Gastro-esophageal reflux disease without esophagitis; E78.5 Hyperlipidemia, unspecified; Z79.899 Other long term (current) drug therapy; Z79.82 Long term (current) use of aspirin; Z79.51 Long term (current) use of inhaled steroids
CPT/HCPCS: 36415; 93005; 85379; 80053; 83605; 84484; 85025; 85610; 85730; 71046; 70450; 99285; 96361; 96374; 96375; J1200; J1885; 99284

== ENCOUNTER → 2021-04-15 | Outpatient (CLI) | payer MEDICARE ==
--- NOTE | 2021-04-15 12:05 | CT ---
EXAMINATION TYPE: CT ChestAbdPelvis wo/w con DATE OF EXAM: 04/15/2021 INDICATION: Lung CA COMPARISON: 10/11/2020 CT DLP: 1560.1 mGycm CONTRAST: Performed with Oral Contrast and without and with IV Contrast, patient injected with 100 mL of Isovue 300. TECHNIQUE: Axial images at 5 mm thick sections. Reconstructed images in the coronal plane. Delayed images through the kidneys. FINDINGS: CT CHEST: Portion of the thyroid visualized is normal. No suspicious lung nodules. A few tiny densities may be scattered within the posterior lateral right lung, present previously and stable. No enlarged mediastinal or hilar adenopathy is evident. The ascending aorta diameter at the level of the main pulmonary artery is 3.3 cm. The main pulmonary artery diameter at the bifurcation is 3.2 cm. Moderate coronary artery calcification is evident. Scoliosis is present. CT ABDOMEN: Liver: Normal Spleen: Normal Pancreas: Normal Adrenal glands: The adrenal glands are normal. Gallbladder: Normal Kidneys: No masses are evident. No hydronephrosis is present. There is a 2.6 cm cyst on the lateral mid right kidney measuring 5 Hounsfield units. Delayed images were obtained through the kidneys, wh ich remain unremarkable. Vascular calcification is within the kidneys. Aorta: Vascular calcification is within the aorta. Inferior vena cava: Normal. CT PELVIS: Loops of bowel within the abdomen and pelvis are normal. There are loops of bowel which are incom pletely distended or lack oral contrast limiting their evaluation. Appendix: Normal as visualized. Urinary bladder: Normal. Genitourinary structures: Prostate is prominent. Small calcifications are present. Osseous structures: No suspicious lytic or sclerotic lesions. IMPRESSIONS: 1. Stable examination. No suspicious changes to suggest recurrent or metastatic disease are identifie d.
== END | disposition home or self-care (01) ==
LOC: RADCTMAIN 09:09
PROVIDERS: ATTEND Internal Medicine Hematology & Oncology
DX: C34.12 Malignant neoplasm of upper lobe, left bronchus or lung (principal); G62.0 Drug-induced polyneuropathy; J44.9 Chronic obstructive pulmonary disease, unspecified; I10 Essential (primary) hypertension
CPT/HCPCS: 82565; 84520; 71270; 74178; 36415; Q9967 ×2

== ENCOUNTER → 2021-10-28 | Outpatient (CLI) | payer MEDICARE ==
--- NOTE | 2021-10-28 14:13 | CT ---
EXAMINATION TYPE: CT ChestAbdPelvis w con DATE OF EXAM: 10/28/2021 COMPARISON: 04/15/2021 and 10/11/2020 HISTORY: follow up to lung CA CT DLP: 2161 mGycm Automated exposure control for dose reduction was used. CONTRAST: CT scan of the chest, abdomen and pelvis is performed with Oral Contrast and with IV Contrast, patien t injected with 100 mL of Isovue 300. FINDINGS: CT chest: The chest is stable compared to previous without evidence of recurrent or metastatic disease. There a re postsurgical changes of partial left lung resection with marked volume loss on the left. Scattered tree-in-bud densities are seen which are stable as well. There is no airspace consolidation to suggest acute disease or suspicious mass. There is no pleural effusion or pneumothorax. There are mild emphysematous changes in the upper lobes. The great vessels the chest are normal and there is no mediastinal, hilar or axillary adenopathy. No focal osseous lesions are seen. CT abdomen and pelvis: Tiny gallstones are seen previously but there is no gallbladder wall thickening, distention or perich olecystic fluid. There is no biliary ductal dilatation. There is no focal mass within the liver, panc reas, spleen or adrenal glands and there is no organomegaly. Stable right renal cyst but there is no solid renal mass or process. There is no retroperitoneal sara opathy or hemorrhage in the caliber of the abdominal aorta is normal. The bowel loops are normal in caliber is no evidence of bowel obstruction. There is no bowel wall thi ckening or inflammation. There is marked diverticulosis without CT evidence of diverticulitis. There is no free intraperitoneal air or fluid. There is no pelvic mass, free fluid or adenopathy. There is mild prostatic hypertrophy calcification. No focal osseous lesions are seen. IMPRESSION: 1. Volume loss on the left secondary to postsurgical changes from prior lung cancer. 2. Stable scattered tree-in-bud densities within the lung bases. 3. No acute cardiopulmonary disease. 4. No recurrent neoplasm or metastatic disease within chest. 5. No metastatic disease to the abdomen or pelvis. 6. Marked diverticulosis without evidence of cyst diverticulitis. 7. Mild cholelithiasis which is stable. 8. Stable moderate prostatic hypertrophy and calcification
== END | disposition home or self-care (01) ==
LOC: RADCTMAIN 08:53
PROVIDERS: ATTEND Internal Medicine Hematology & Oncology
DX: C34.12 Malignant neoplasm of upper lobe, left bronchus or lung (principal); G62.0 Drug-induced polyneuropathy; J44.9 Chronic obstructive pulmonary disease, unspecified; I10 Essential (primary) hypertension
CPT/HCPCS: 82565; 84520; 71260; 74177; 36415; Q9967

== ENCOUNTER → 2022-04-21 | Outpatient (CLI) | payer MEDICARE ==
--- NOTE | 2022-04-21 12:37 | CT ---
EXAMINATION TYPE: CT ChestAbdPelvis w con DATE OF EXAM: 04/21/2022 COMPARISON: 10/28/2021, 04/15/2021 HISTORY: 81-year-old male C34.12, Lung CA TECHNIQUE: Contiguous axial scanning of the chest, abdomen, and pelvis performed with IV Contrast, pa tient injected with 70 mL of Isovue 300. Delayed images through the kidneys were obtained. Coronal/sa gittal reconstructions performed. CT DLP: 1158.4 mGycm Automated exposure control for dose reduction was used. FINDINGS: CHEST: Heart normal size with trace pericardial fluid. Scattered three-vessel coronary artery calcifications are present in remarkable for coronary artery disease. Ectatic ascending aorta 3.6 cm. Mild atherosclerotic arch calcifications. Conventional arterial suppl y and anatomy. No thoracic adenopathy by CT size criteria. There are postsurgical changes of previous left upper lobectomy. Some new tree-in-bud opacities at th e bilateral lower lungs. Also new is focal irregular opacity in the right upper lobe measuring 3.8 x 1.8 cm. Despite the masslike appearance, given that it is entirely new from 10/28/2021, an infectious etiology is suspected. Mild emphysematous change. No pleural effusion. ABDOMEN: No focal liver lesion. Portal venous system is patent. A couple surgical clips near the gallbladder fossa but persistent cystic area measuring 2.7 cm, possi ble gallbladder remnant in the setting of interval cholecystectomy. Additional possible gallbladder r emnant measuring 1.7 cm, axial image 24. An abnormal lymph node or other soft tissue here is difficul t to entirely exclude. Adrenal glands, spleen, and pancreas within normal limits. There is a small to moderate-sized hiatal hernia. No dilated small bowel, free fluid, or free air. A mildly enlarged 1.2 cm right lower quadrant mesenteric lymph node is relatively unchanged, likely c hronic reactive/post inflammatory etiology. Moderate stool especially in the right side of the colon. Generalized colonic diverticulosis especial ly along the left side of the colon and greatest in the proximal to mid sigmoid colon. No pericolic inflammatory change. However, there is annular soft tissue thickening and slight narrowi ng along the mid transverse colon, axial image 69 which persists on the delayed scan. Direct visualiz ation recommended to exclude a mucosal lesion or. Moderate atherosclerotic calcifications abdominal aorta and iliac arteries with segmental moderate st enoses in the common iliac arteries. PELVIS: Bladder urine distended. Prostate gland enlargement 5.2 cm wide. No abnormal fluid collection in the pelvis or pelvic lymphadenopathy. BONES: Mild degenerative change of both hips. No osseous destructive process seen. S-shaped scoliosis IMPRESSION: 1. STATUS POST LEFT UPPER LOBECTOMY. THERE IS NEW IRREGULAR OPACITY IN THE RIGHT UPPER LOBE MEASURING 3.8 X 1.8 CM. DESPITE THE MASSLIKE APPEARANCE, GIVEN THAT IT IS ENTIRELY NEW FROM 10/28/2021, AN INFE CTIOUS ETIOLOGY IS FAVORED OVER NEOPLASM. CORRELATE WITH PATIENT'S SYMPTOMS. SHORT INTERVAL FOLLOW-UP RECOMMENDED TO ENSURE RESOLUTION. 2. ADDITIONAL NEW BIBASILAR TREE-IN-BUD OPACITIES COULD REFLECT MILD ASPIRATION OR INFECTIOUS BRONCHI OLITIS. 3. A COUPLE SURGICAL CLIPS ARE NOW NOTED AT THE GALLBLADDER FOSSA. QUERY INTERVAL CHOLECYSTECTOMY. TH ERE IS A POSSIBLE 2.7 CM GALLBLADDER REMNANT. AN ADDITIONAL ADJACENT 1.7 CM AREA THAT COULD REPRESENT A REMNANT WELL. AN ABNORMAL LYMPH NODE OR OTHER SOFT TISSUE HERE IS DIFFICULT TO ENTIRELY EXCLUDE BUT CONSIDERED LESS LIKELY. ATTENTION ON THE PATIENT'S SHORT INTERVAL FOLLOW-UP. 4. ANNULAR SOFT TISSUE THICKENING AND NARROWING ALONG THE MID TRANSVERSE COLON COULD REPRESENT FOCAL PERISTALSIS. DIRECT VISUALIZATION RECOMMENDED TO EXCLUDE A MUCOSAL LESION. 5. A MILDLY ENLARGED RIGHT LOWER QUADRANT MESENTERIC LYMPH NODES REMAIN STABLE AT 1.2 CM, LIKELY INBOUND CALL CENTER REPRESENTATIVE SAMANTHA REACTIVE/POST INFLAMMATORY ETIOLOGY. 6. INCIDENTAL: MODERATE STOOL BURDEN. COLONIC DIVERTICULOSIS WITHOUT ACUTE DIVERTICULITIS. COPD WITH MILD EMPHYSEMA. S-SHAPED SCOLIOSIS.
== END | disposition home or self-care (01) ==
LOC: RADCTMAIN 09:16
PROVIDERS: ATTEND Internal Medicine Hematology & Oncology
DX: Z03.89 Encounter for observation for other suspected diseases and conditions ruled out (principal); C34.12 Malignant neoplasm of upper lobe, left bronchus or lung
CPT/HCPCS: 82565; 84520; 71260; 74177; 36415; Q9967

== ENCOUNTER 2022-10-12 10:38 | Emergency (ER) | payer MEDICARE ==
[2022-10-12 10:45] VITALS: BP 116/75; PULSE 88; RESP 18; TEMP 97.5
[2022-10-12 11:46] LABS: Basophils % (A) 0 %; Eosinophils # (A) 0.9 k/uL (0-0.7); Eosinophils % (A) 9 %; HCT 40.6 % (39.0-53.0); HGB 14.2 gm/dL (13.0-17.5); Lymphocytes # (A) 1.5 k/uL (1.0-4.8); Lymphocytes % (A) 14 %; MCH 30.8 pg (25.0-35.0); MCHC 34.9 g/dL (31.0-37.0); MCV 88.2 fL (80.0-100.0); Mean Platelet Volume 7.3; Monocytes # (A) 0.7 k/uL (0-1.0); Monocytes % (A) 7 %; Neutrophils # (A) 6.8 k/uL (1.3-7.7); Neutrophils % (A) 68 %; Platelet Count 256 k/uL (150-450); RDW 12.7 % (11.5-15.5)
--- NOTE | 2022-10-12 11:51 | ED ---
Abdominal Pain HPI - General Chief Complaint: Nausea/Vomiting/Diarrhea Stated Complaint: Vomiting,Bloating,Sent by PCP Time Seen by Provider: 10/12/22 11:09 Source: patient, RN notes reviewed Mode of arrival: ambulatory Limitations: no limitations - History of Present Illness Initial Comments: This is an 82-year-old male who presents to the emergency department for nausea, vomiting, and abdominal pain. States that for the last 10 days, he has had prob lems with constipation and abdominal bloating. 7 days ago he saw his PCP. He was told to start milk of magnesia and had abdominal x-rays done. Imaging revealed no acute findings. He is still taking the milk of magnesia and is now developing diarrhea, but states that he is going only very small amounts. He has associated left lower quadrant abdominal pain. States that when he lays down at night, he throws up everything he had to eat for the day. Also states that he feels like he is continuing to feel more and more bloated. Denies any fevers, chills, sore throat, cough, dyspnea, chest pain, palpitations, back pain, or headaches. MD Complaint: abdominal pain Onset/Timin -: days(s) - Related Data Home Medications Medication Instructions Recorded Confirmed Atorvastatin [Lipitor] 40 mg PO DAILY 04/02/18 02/23/21 Montelukast Sodium [Singulair] 10 mg PO HS 04/02/18 02/23/21 Aspirin EC [Ecotrin Low Dose] 81 mg PO DAILY 02/23/21 02/23/21 Budesonide [Pulmicort Flexhaler] 2 puff INHALATION RT-BID 02/23/21 02/23/21 Glucosam/Patricio-Msm1/C/Alfred/Bosw 1 tab PO DAILY 02/23/21 02/23/21 [Glucosamine-Chondroitin Tablet] Lansoprazole 30 mg PO DAILY 02/23/21 02/23/21 Losartan [Cozaar] 25 mg PO DAILY 02/23/21 02/23/21 hydroCHLOROthiazide 12.5 mg PO DAILY 02/23/21 02/23/21 Previous Rx's Medication Instructions Recorded Polymyxin B-Trimeth Sulf Ophth 1 drops BOTH EYES Q4H 10 Days #30 02/23/21 [Polytrim Opthalmic] ml Allergies Allergy/AdvReac Type Severity Reaction Status Date / Time No Known Allergies Allergy Verified 10/12/22 10:45 Review of Systems ROS Statement: Those systems with pertinent positive or pertinent negative responses have been documented in the HPI. ROS Other: All systems not noted in ROS Statement are negative. Past Medical History Past Medical History: COPD, GERD/Reflux, Hyperlipidemia, Hypertension Additional Past Medical History / Comment(s): seasaonal allergies History of Any Multi-Drug Resistant Organisms: None Reported Past Surgical History: Back Surgery Additional Past Surgical History / Comment(s): left upper lobectomy Past Anesthesia/Blood Transfusion Reactions: No Reported Reaction Past Psychological History: Depression Smoking Status: Never smoker Past Alcohol Use History: None Reported Past Drug Use History: None Reported - Past Family History Sister(s) Family Medical History: Cancer Additional Family Medical History / Comment(s): lung and colon cancer General Exam Limitations: no limitations General appearance: alert, in no apparent distress Head exam: Present: atraumatic, normocephalic, normal inspection Respiratory exam: Present: normal lung sounds bilaterally. Absent: respiratory distress, wheezes, rales, rhonchi, stridor Cardiovascular Exam: Present: regular rate, normal rhythm, normal heart sounds. Absent: systolic murmur, diastolic murmur, rubs, gallop, clicks GI/Abdominal exam: Present: soft, distended, tenderness (LLQ), hypoactive bowel sounds. Absent: guarding, rebound, rigid Neurological exam: Present: alert, oriented X3, CN II-XII intact Psychiatric exam: Present: normal affect, normal mood Skin exam: Present: warm, dry, intact, normal color. Absent: rash Course Vital Signs 10/12/22 10:41 Temperature 97.5 F L Pulse Rate 88 Respiratory 18 Rate Blood Pressure 116/75 O2 Sat by Pulse 96 Oximetry Medical Decision Making - Medical Decision Making This is an 82-year-old male who presents to the emergency department for abdominal pain and bloating. Was pt. sent in by a medical professional or institution? @ -No Did you speak to anyone other than the patient for history? @ -His Did you review nursing and triage notes? @ -Yes, and I agree, it is accurate with regards to the patient's symptoms. Were old charts reviewed? @ -No Differential Diagnosis? @ -Differential Abdominal Pain Men: Appendicitis, cholecystitis, diverticulosis, ischemic bowel, pancreatitis, hepatitis, UTI, gastroenteritis, AAA, incarcerated hernia, bowel obstruction, constipation, inflammatory bowel, hepatitis, peptic ulcer disease, splenic infarction, perforated viscus, testicular torsion, this is not meant to be an all-inclusive list CT interpreted by me (1pt min.)? @ -Computed tomography scan of the abdomen and pelvis obtained. My interpretation identifies stool burden and no evidence of bowel obstruction or bowel wall thickening. What testing was considered but not performed? (CT, X-rays, U/S, labs)? Why? @ -None What meds were considered but not given? Why? @ -None Did you discuss the management of the patient with other professionals? @ -No Did you reconcile home meds? @ -No Was smoking cessation discussed for >3mins.? @ -No Was critical care preformed (if so, how long)? @ -No Were there social determinants of health that impacted care today? How? (Homelessness, low income, unemployed, alcoholism, drug addiction, transportation, low edu. Level, literacy, decrease access to med. care, longterm, rehab)? @ -No Was there de-escalation of care discussed even if they declined? (Discuss DNR or withdrawal of care, Hospice)? @ -No What co-morbidities impacted this encounter? (DM, HTN, Smoking, COPD, CAD, Cancer, CVA, Hep., AIDS, mental health diagnosis, sleep apnea, morbid obesity)? @ -Morbid obesity Was patient admitted / discharged? @ -Discharged. Lab work obtained revealing no acute findings. Computed tomography scan of the abdomen and pelvis obtained revealing moderate stool burden and possible gastritis. No evidence of bowel obstruction. Advised to increase his fluid and fiber intake and consider starting a probiotic. He can also continue to take stool softeners as instructed by his PCP. Advised to consider a follow-up with GI, I offered to provide information, however he states that he would rather discussed this with his PCP first. Undiagnosed new problem with uncertain prognosis? @ -None Drug Therapy requiring intensive monitoring for toxicity (Heparin, Nitro, Insulin, Cardizem)? @ -None Were any procedures done? @ -None Diagnosis/symptom? @ -Constipation, abdominal bloating Acute, or Chronic, or Acute on Chronic? @ -Acute Uncomplicated (without systemic symptoms) or Complicated (systemic symptoms)? @ -Uncomplicated Side effects of treatment? @ -None Exacerbation, Progression, or Severe Exacerbation] @ -Not applicable Poses a threat to life or bodily function? @ -No Return precautions reviewed in depth, the patient is instructed to return to the emergency department with any new, worsening, or concerning symptoms. Patient verbalized understanding. This case was discussed in detail with the attending ED physician, Dr. Craig. Presentation, findings, and treatment plan discussed in detail as well. - Lab Data Result diagrams: 10/12/22 11:30 10/12/22 11:30 Lab Results 10/12/22 10/12/22 10/12/22 Range/Units 11:30 11:30 11:30 WBC 10.0 (3.8-10.6) k/uL RBC 4.60 (4.30-5.90) m/uL Hgb 14.2 (13.0-17.5) gm/dL Hct 40.6 (39.0-53.0) % MCV 88.2 (80.0-100.0) fL MCH 30.8 (25.0-35.0) pg MCHC 34.9 (31.0-37.0) g/dL RDW 12.7 (11.5-15.5) % Plt Count 256 (150-450) k/uL MPV 7.3 Neutrophils % 68 % Lymphocytes % 14 % Monocytes % 7 % Eosinophils % 9 % Basophils % 0 % Neutrophils # 6.8 (1.3-7.7) k/uL Lymphocytes # 1.5 (1.0-4.8) k/uL Monocytes # 0.7 (0-1.0) k/uL Eosinophils # 0.9 H (0-0.7) k/uL Basophils # 0.0 (0-0.2) k/uL Sodium 136 L (137-145) mmol/L Potassium 4.4 (3.5-5.1) mmol/L Chloride 103 (98-107) mmol/L Carbon Dioxide 25 (22-30) mmol/L Anion Gap 8 mmol/L BUN 20 (9-20) mg/dL Creatinine 1.20 (0.66-1.25) mg/dL Est GFR (CKD-EPI)AfAm 65 (>60 ml/min/1.73 sqM) Est GFR (CKD-EPI)NonAf 57 (>60 ml/min/1.73 sqM) Glucose 106 H (74-99) mg/dL Plasma Lactic Acid Miguel 1.0 (0.7-2.0) mmol/L Calcium 9.1 (8.4-10.2) mg/dL Total Bilirubin 0.8 (0.2-1.3) mg/dL AST 24 (17-59) U/L ALT 29 (4-49) U/L Alkaline Phosphatase 75 (38-126) U/L Total Protein 6.9 (6.3-8.2) g/dL Albumin 4.1 (3.5-5.0) g/dL Amylase 55 (30-110) U/L Lipase 33 (23-300) U/L Urine Color Urine Appearance (Clear) Urine pH (5.0-8.0) Ur Specific Aurora (1.001-1.035) Urine Protein (Negative) Urine Glucose (UA) (Negative) Urine Ketones (Negative) Urine Blood (Negative) Urine Nitrite (Negative) Urine Bilirubin (Negative) Urine Urobilinogen (<2.0) mg/dL Ur Leukocyte Esterase (Negative) 10/12/22 Range/Units 11:30 WBC (3.8-10.6) k/uL RBC (4.30-5.90) m/uL Hgb (13.0-17.5) gm/dL Hct (39.0-53.0) % MCV (80.0-100.0) fL MCH (25.0-35.0) pg MCHC (31.0-37.0) g/dL RDW (11.5-15.5) % Plt Count (150-450) k/uL MPV Neutrophils % % Lymphocytes % % Monocytes % % Eosinophils % % Basophils % % Neutrophils # (1.3-7.7) k/uL Lymphocytes # (1.0-4.8) k/uL Monocytes # (0-1.0) k/uL Eosinophils # (0-0.7) k/uL Basophils # (0-0.2) k/uL Sodium (137-145) mmol/L Potassium (3.5-5.1) mmol/L Chloride (98-107) mmol/L Carbon Dioxide (22-30) mmol/L Anion Gap mmol/L BUN (9-20) mg/dL Creatinine (0.66-1.25) mg/dL Est GFR (CKD-EPI)AfAm (>60 ml/min/1.73 sqM) Est GFR (CKD-EPI)NonAf (>60 ml/min/1.73 sqM) Glucose (74-99) mg/dL Plasma Lactic Acid Miguel (0.7-2.0) mmol/L Calcium (8.4-10.2) mg/dL Total Bilirubin (0.2-1.3) mg/dL AST (17-59) U/L ALT (4-49) U/L Alkaline Phosphatase (38-126) U/L Total Protein (6.3-8.2) g/dL Albumin (3.5-5.0) g/dL Amylase (30-110) U/L Lipase (23-300) U/L Urine Color Light Yellow Urine Appearance Clear (Clear) Urine pH 7.0 (5.0-8.0) Ur Specific Aurora 1.006 (1.001-1.035) Urine Protein Negative (Negative) Urine Glucose (UA) Negative (Negative) Urine Ketones Negative (Negative) Urine Blood Negative (Negative) Urine Nitrite Negative (Negative) Urine Bilirubin Negative (Negative) Urine Urobilinogen <2.0 (<2.0) mg/dL Ur Leukocyte Esterase Negative (Negative) - Radiology Data Radiology results: report reviewed, image reviewed Disposition Clinical Impression: Constipation, Abdominal bloating Disposition: HOME SELF-CARE Instructions (If sedation given, give patient instructions): Constipation (ED), Gas and Bloating (ED) Additional Instructions: Return to the emergency department with any new, worsening, or concerning symptoms. Increase your fluid and fiber intake. You can also consider taking a probiotic daily. Follow up with your primary care provider in 1-2 days. Is patient prescribed a controlled substance at d/c from ED?: No Referrals: Nataly You MD [Primary Care Provider] - 1-2 days
[2022-10-12 12:08] LABS: Albumin 4.1 g/dL (3.5-5.0); Calcium 9.1 mg/dL (8.4-10.2); Potassium 4.4 mmol/L (3.5-5.1); Total Bilirubin 0.8 mg/dL (0.2-1.3); Total Protein 6.9 g/dL (6.3-8.2)
[2022-10-12 12:36] LABS: Appearance,Urine Clear (Clear); Bilirubin,Urine Negative (Negative); Blood,Urine Negative (Negative); Color,Urine Light Yellow; Glucose,Urine (UA) Negative (Negative); Ketones,Urine Negative (Negative); Leukocyte Esterase,Urine Negative (Negative); Nitrite,Urine Negative (Negative); Protein,Urine Negative (Negative); Specific Gravity,Urine 1.006 (1.001-1.035); Urobilinogen,Urine <2.0 mg/dL (<2.0)
--- NOTE | 2022-10-12 12:54 | CT ---
EXAMINATION TYPE: CT abdomen pelvis w con DATE OF EXAM: 10/12/2022 COMPARISON: 04/21/2022 HISTORY: Constipation and vomiting. CT DLP: 1175.8 mGycm CONTRAST: CT scan of the abdomen and pelvis is performed without Oral Contrast and with IV Contrast, patient in jected with 100ml mL of Isovue 300. FINDINGS: LUNG BASES-: No visible nodule. No infiltrate. There is evidence of sliding type hiatal hernia. LIVER/GB: No calcified gallstones. No space occupying hepatic lesion. Biliary tree is of normal ca liber. PANCREAS: No inflammation. No distinct mass. SPLEEN: No splenic enlargement. No lesion seen. ADRENALS: No nodule. No thickening. KIDNEYS/BLADDER: No hydronephrosis. No nephrolithiasis. No solid renal masses seen. Right renal cys t measuring 2.9 cm. Tiny subcentimeter cortical cyst upper pole left kidney. Urinary bladder grossly unremarkable. BOWEL: Normal appendix. Normal bowel caliber. No inflammation. There is moderate sigmoid diverticul osis without diverticulitis. Small and large bowel appear to be of normal caliber. Mild to moderate f ecal stasis seen throughout the colon. No evidence for free air or abscess. Mild hyperemia and gastri c wall could reflect underlying gastritis. Correlate clinically. GENITAL ORGANS: Prostate gland enlargement and central calcifications. LYMPH NODES: No greater than 1cm abdominal or pelvic lymph nodes are appreciated. AORTA: No significant abnormality. OSSEOUS STRUCTURES: No significant abnormality is seen. OTHER: No significant additional abnormality is seen. IMPRESSION: 1. Mild hyperemia and gastric wall could reflect underlying gastritis. Correlate clinically. 2. Diverticulosis without diverticulitis. Moderate fecal burden.
[2022-10-12] MEDS: ONDANSETRON 4 MG ODT STARTER PACK 2 TAB BTL PO STA (13:53)
== END 2022-10-12 14:00 | disposition home or self-care (01) ==
LOC: EC 10:38
DX: K59.00 Constipation, unspecified (principal); I10 Essential (primary) hypertension; E78.5 Hyperlipidemia, unspecified; K21.9 Gastro-esophageal reflux disease without esophagitis; F32.A Depression, unspecified; Z79.51 Long term (current) use of inhaled steroids; Z79.82 Long term (current) use of aspirin; Z79.899 Other long term (current) drug therapy
CPT/HCPCS: 36415; 80053; 82150; 83605; 83690; 85025; 81003; 74177; 99284; S0119; Q9967

== ENCOUNTER → 2022-11-08 | Outpatient (CLI) | payer MEDICARE ==
--- NOTE | 2022-11-08 17:00 | CT ---
EXAMINATION TYPE: CT ChestAbdPelvis w con DATE OF EXAM: 11/08/2022 INDICATION: Lung ca, observe for mets COMPARISON: 10/12/2022 CT abdomen and pelvis CT DLP: 1340.20 mGycm CONTRAST: Performed with Oral Contrast and with IV Contrast, patient injected with 80 mL of Isovue 300. TECHNIQUE: Axial images at 5 mm thick sections. Reconstructed images in the coronal plane. Delayed images through the kidneys. FINDINGS: CT CHEST: Portion of the thyroid visualized is normal. No suspicious lung nodules or focal infiltrates are present. No enlarged mediastinal or hilar adenopathy is evident. The ascending aorta diameter at the level of the main pulmonary artery is 3.5 cm. The main pulmonary artery diameter at the bifurcation is 3.0 cm. Coronary artery calcification is present. CT ABDOMEN: Liver: Normal Spleen: Normal Pancreas: Pancreatic tail appears somewhat atrophic and fatty infiltrated. Adrenal glands: The adrenal glands are normal. Gallbladder: Surgically absent Kidneys: No masses are evident. No hydronephrosis is present. There is a 3.1 cm cyst lateral right kidney. Tiny cortical renal cysts on the right kidney. Tiny cortical renal cyst is present on the lef t kidney. Delayed images were obtained through the kidneys, which remain unremarkable. Aorta: Vascular calcification is within the aorta. Inferior vena cava: Normal. CT PELVIS: Loops of bowel within the abdomen and pelvis are normal. Scattered diverticuli are through the proxim al sigmoid colon. No acute diverticulitis is evident. There are loops of bowel lacking oral contra st are incompletely distended limiting their evaluation. Appendix: Normal as visualized. Urinary bladder: Normal. Genitourinary structures: Prostate is prominent with calcification. Osseous structures: No suspicious lytic or sclerotic lesions. Scoliosis is present through the thorac ic spine. IMPRESSIONS: 1. No suspicious changes to suggest primary or metastatic lesions 2. Sigmoid diverticulosis without acute diverticulitis. 3. Renal cysts
== END | disposition home or self-care (01) ==
LOC: RADCTMAIN 08:53
PROVIDERS: ATTEND Internal Medicine Hematology & Oncology
DX: C34.12 Malignant neoplasm of upper lobe, left bronchus or lung (principal); G62.0 Drug-induced polyneuropathy; J44.9 Chronic obstructive pulmonary disease, unspecified; I10 Essential (primary) hypertension; K57.30 Diverticulosis of large intestine without perforation or abscess without bleeding; N28.1 Cyst of kidney, acquired
CPT/HCPCS: 82565; 84520; 71260; 74177; 36415; Q9967

== ENCOUNTER → 2023-11-14 | Outpatient (CLI) | payer MEDICARE ==
[2023-11-14 10:16] LABS: African American GFR (CKD) 71 (>60 ml/min/1.73 sqM); Blood Urea Nitrogen 19 mg/dL (9-20); Non-African American GFR(CKD) 61 (>60 ml/min/1.73 sqM)
--- NOTE | 2023-11-14 12:35 | CT ---
EXAMINATION TYPE: CT ChestAbdPelvis w con DATE OF EXAM: 11/14/2023 COMPARISON: 04/16/2023 HISTORY: hx of lung ca, obs for mets. CT DLP: 1415.30 mGycm CONTRAST: CT scan of the chest, abdomen and pelvis is performed with Oral Contrast and with IV Contrast, patien t injected with 100ml mL of Isovue 300. CT Chest: LUNGS: There is left-sided partial lobectomy changes seen. Scattered subpleural fibrosis left lung un changed from previous. The lungs are clear and free of infiltrate or atelectasis. No pulmonary nodul e or mass is detected. No pleural effusion. MEDIASTINUM: Thoracic aorta is of normal caliber. The heart is not enlarged. No evidence for media stinal mass or adenopathy. HILAR STRUCTURES: No evidence for mass. No hilar adenopathy is appreciated. OTHER: Thoracolumbar scoliosis CONTRAST CT ABDOMEN AND PELVIS FINDINGS: LIVER/GB: The gallbladder is surgically absent. No space occupying hepatic lesion. Biliary tree is of normal caliber. PANCREAS: No inflammation. No distinct mass. SPLEEN: No splenic enlargement. No lesion seen. ADRENALS: No nodule. No thickening. KIDNEYS/BLADDER: No hydronephrosis. No nephrolithiasis. Stable exophytic cyst mid to upper pole rig ht kidney. BOWEL: Normal appendix. Normal bowel caliber. No inflammation. Sigmoid diverticulosis without diver ticulitis. GENITAL ORGANS: No gross abnormality. LYMPH NODES: No greater than 1cm abdominal or pelvic lymph nodes are appreciated. AORTA: No significant abnormality. OSSEOUS STRUCTURES: No significant abnormality is seen. OTHER: No significant additional abnormality is seen. IMPRESSION: 1. No evidence of tumor recurrence or metastatic disease. 2. Mild subpleural fibrosis left lung. 3. Diverticulosis without diverticulitis.
== END | disposition home or self-care (01) ==
LOC: RADCTMAIN 09:25
PROVIDERS: ATTEND Internal Medicine Hematology & Oncology
DX: C34.12 Malignant neoplasm of upper lobe, left bronchus or lung (principal); G62.0 Drug-induced polyneuropathy; J44.9 Chronic obstructive pulmonary disease, unspecified; I10 Essential (primary) hypertension; K57.90 Diverticulosis of intestine, part unspecified, without perforation or abscess without bleeding; J84.10 Pulmonary fibrosis, unspecified
CPT/HCPCS: 82565; 84520; 71260; 74177; 36415; Q9967